=== PATIENT | female | born 1950 | race Caucasian/White ===

== ENCOUNTER → 2018-01-01 08:14 | Outpatient (CLI) | payer MEDICARE, OTHER, SELFPAY ==
[2018-01-01 10:40] LABS: Hematocrit 38.2 % (37-47); Hemoglobin 12.3 g/dl (12.0-15.0); Mean Corp Hgb Conc 32.2 g/gl (32-36); Mean Corpuscular Hgb 28.9 pg (27.0-32.0); Mean Corpuscular Volume 89.9 fL (81-99); Mean Platelet Vol. 11.3 fl (6.2-12.0); Platelet Count 176 K/mm3 (150-450); RBC Distribution Width CV 15.6 % (11.6-14.6); RBC Distribution Width SD 51.2 fl (35.1-43.9); Red Blood Count 4.25 M/mm3 (4.2-5.4); White Blood Count 4.6 K/mm3 (4.4-11.0)
[2018-01-01 10:41] LABS: Scan Indicated on CBC? Y/N NO
[2018-01-01 10:42] LABS: Color, Urine Yellow (Yellow); Glucose, Dipstick Normal (Normal); Ketone-Dipstick Negative (Negative); Leukocyte Esterase-Dipstick 100 /ul (Negative); Nitrite-Dipstick Negative (Negative); Occult Blood-Urine 10 /ul (Negative); Protein-Dipstick Negative (Negative); Specific Gravity, Urine 1.015 (1.002-1.030); Urine Bilirubin Dipstick Negative (Negative); Urine Clarity Sl. Cloudy (Clear); Urine Urobilinogen Normal (Normal)
[2018-01-01 10:53] LABS: Albumin, Serum 3.6 g/dL (3.2-5.0); BUN 17 mg/dL (7-18); BUN/Creat Ratio 12.2 RATIO (10-20); Calcium,Total 9.2 mg/dL (8.5-10.1); Chloride 109 mmol/L (98-107); Creatinine, Serum 1.39 mg/dL (0.55-1.02); EST Glomerular Filtration Rate 40 mL/min (>60); Est Glom Filt Rate - Afr Amer 48 mL/min (>60); Glucose 78 mg/dL (74-106); Phosphorus 3.2 mg/dL (2.5-4.9); Potassium 4.2 mmol/L (3.5-5.1); Sodium Level 141 mmol/L (136-145)
[2018-01-01 13:44] LABS: Microalbumin,Random Urine 67.8 mg/L (NO RANGE EST.); Microalbumin:Creatinine Ratio 107.4 mg/g CRE (<30 mg/g CRE)
[2018-01-02 08:52] LABS: PTHIN 66.1 pg/mL (18.4-80.1)
[2018-01-02 08:54] LABS: Vitamin D,25 Hydroxy 24.3 ng/mL (19.95-100.01)
== END ==
PROVIDERS: Family Provider Family Medicine; PCP Family Medicine; Visit Provider Internal Medicine Nephrology
DX: N25.81 Secondary hyperparathyroidism of renal origin (principal); N18.4 Chronic kidney disease, stage 4 (severe); D63.1 Anemia in chronic kidney disease
CPT/HCPCS: 36415; 80069; 81002; 82043; 82306; 82570; 83970; 85027

== ENCOUNTER → 2018-03-19 12:09 | Outpatient (CLI) | payer MEDICARE, OTHER, SELFPAY ==
[2018-03-19 14:22] LABS: Hemoglobin A1c 4.9 % (4.2-6.3)
== END ==
PROVIDERS: Family Provider Family Medicine; PCP Family Medicine; Visit Provider Family Medicine
DX: E11.9 Type 2 diabetes mellitus without complications (principal)
CPT/HCPCS: 36415; 83036

== ENCOUNTER → 2018-05-07 15:47 | Outpatient (CLI) | payer MEDICARE, OTHER, SELFPAY | PROVIDERS: Visit Provider Otolaryngology Otolaryngology/Facial Plastic Surgery | DX: J32.9 Chronic sinusitis, unspecified (principal); J31.0 Chronic rhinitis | CPT/HCPCS: 87070; 87077; 87205 ==

== ENCOUNTER → 2018-07-31 09:19 | Outpatient (CLI) | payer MEDICARE, OTHER, SELFPAY ==
[2018-07-31 11:04] LABS: Cholesterol 166 mg/dL (200); High Density Lipoprotein 52 mg/dL; Thyroid Stim Hormone (TSH) 2.88 uIU/mL (0.358-3.74); Triglycerides 65 mg/dL; Very Low Density Lipoprotein 13 mg/dL (5-40)
== END ==
PROVIDERS: Family Provider Family Medicine; PCP Family Medicine; Visit Provider Family Medicine
DX: I10 Essential (primary) hypertension (principal)
CPT/HCPCS: 36415; 80061; 84443

== ENCOUNTER → 2018-09-05 10:23 | Outpatient (CLI) | payer MEDICARE, OTHER, SELFPAY ==
[2018-09-05 12:18] LABS: Hematocrit 35.7 % (37-47); Hemoglobin 11.8 g/dl (12.0-15.0); Mean Corp Hgb Conc 33.1 g/gl (32-36); Mean Corpuscular Hgb 30.1 pg (27.0-32.0); Mean Corpuscular Volume 91.1 fL (81-99); Mean Platelet Vol. 11.5 fl (6.2-12.0); Platelet Count 194 K/mm3 (150-450); RBC Distribution Width CV 13.7 % (11.6-14.6); RBC Distribution Width SD 44.7 fl (35.1-43.9); Red Blood Count 3.92 M/mm3 (4.2-5.4); White Blood Count 4.7 K/mm3 (4.4-11.0)
[2018-09-05 12:20] LABS: Albumin, Serum 3.7 g/dL (3.2-5.0); BUN 35 mg/dL (7-18); Calcium,Total 9.7 mg/dL (8.5-10.1); Chloride 108 mmol/L (98-107); Creatinine, Serum 1.75 mg/dL (0.55-1.02); EST Glomerular Filtration Rate 31 mL/min (>60); Est Glom Filt Rate - Afr Amer 37 mL/min (>60); Glucose 91 mg/dL (74-106); Phosphorus 4.1 mg/dL (2.5-4.9); Potassium 4.7 mmol/L (3.5-5.1); Sodium Level 141 mmol/L (136-145)
[2018-09-05 12:25] LABS: Microalbumin:Creatinine Ratio 333.3 mg/g CRE (<30 mg/g CRE); Protein:Creat Ratio 616 mg/g CRE (0-200)
[2018-09-05 12:32] LABS: PTHIN 60.1 pg/mL (18.4-80.1); Vitamin D,25 Hydroxy 34.9 ng/mL (29.95-100.01)
[2018-09-05 12:33] LABS: Scan Indicated on CBC? Y/N NO
== END ==
PROVIDERS: Family Provider Family Medicine; PCP Family Medicine; Referring Provider Internal Medicine Nephrology; Visit Provider Internal Medicine Nephrology
DX: N18.4 Chronic kidney disease, stage 4 (severe) (principal); D63.1 Anemia in chronic kidney disease
CPT/HCPCS: 36415; 80069; 82043; 82306; 82570; 83970; 84156; 85027

== ENCOUNTER → 2018-11-05 09:17 | Outpatient (CLI) | payer MEDICARE, OTHER, SELFPAY ==
--- NOTE | 2018-11-05 09:26 | ECHOD_ITS ---
Reason For Study: PHTN Procedure This was a 2D Doppler, Color Flow transthoracic echocardiogram. The exam was of adequate technical quality. Exam performed in department. Left Ventricle Normal LV size. Left ventricular systolic function is normal. The estimated ejection fraction is 65 %. Diastolic function is indeterminate. No regional wall motion abnormalities noted. Right Ventricle Normal RV size. Normal systolic function. Atria The left atrium is moderately enlarged. Normal right atrium. No doppler evidence for ASD. Mitral Valve There is moderate mitral annular calcification. Extension of the mitral annular calcification onto the posterior mitral valve leaflet. Mild-Moderate (1-2+) mitral valve insufficiency. Tricuspid Valve Normal tricuspid valve. Mild to moderate (1-2+) tricuspid valve insufficiency. Right ventricular systolic pressure estimated to be 52 mmHg. Aortic Valve Trisinus/trileaflet aortic valve. Mild focal aortic valve calcification. Pulmonic Valve The pulmonic valve is not well visualized. Trivial pulmonic valve insufficiency. Great Vessels Normal sized aortic root. Pericardium/Pleural No pericardial effusion. MMode/2D Measurements & Calculations LVIDd: 4.3 cm IVSd: 1.3 cm Ao root diam: 3.3 cm LVIDs: 3.4 cm LVPWd: 0.85 cm LA dimension: 4.4 cm RVDd: 3.6 cm FS: 22.1 % LAV(MOD-bp): 110.8 ml LA A4 area: 29.8 cm2 RA A4 area: 18.2 cm2 LAV(MOD-bp) Indexed: 56.3 ml/m2 LAV(MOD-sp2): 113.8 ml LAV(MOD-sp4): 105.5 ml Time Measurements MV dec time: 0.27 sec Doppler Measurements & Calculations MV E max se: 106.8 cm/sec Lat Peak E' Se: 13.9 cm/sec Med Peak E' Se: 7.1 cm/sec MV A max se: 112.7 cm/sec E/E' lat: 7.7 E/E' med: 15.0 MV E/A: 0.95 MV V2 max: 131.8 cm/sec MV P1/2t max se: 133.0 cm/sec Ao V2 max: 188.8 cm/sec MV max P.0 mmHg MV P1/2t: 111.9 msec Ao max P.3 mmHg MV V2 mean: 71.8 cm/sec MV dec slope: 348.2 cm/sec2 Ao V2 mean: 113.0 cm/sec MV mean P.5 mmHg MVA(P1/2t): 2.0 cm2 Ao mean P.2 mmHg MV V2 VTI: 50.1 cm Ao V2 VTI: 43.5 cm LV V1 max: 110.6 cm/sec MR max se: 618.4 cm/sec PA V2 max: 127.1 cm/sec LV V1 max P.9 mmHg MR max P.0 mmHg LV V1 mean P.3 mmHg MR mean se: 500.1 cm/sec LV V1 mean: 71.1 cm/sec MR mean P.4 mmHg LV V1 VTI: 29.6 cm MR VTI: 239.7 cm TR max se: 349.0 cm/sec TR max P.7 mmHg Interpretation Summary Left ventricular systolic function is normal. The estimated ejection fraction is 65 %. The left atrium is moderately enlarged. There is moderate mitral annular calcification. Extension of the mitral annular calcification onto the posterior mitral valve leaflet. Mild-Moderate (1-2+) mitral valve insufficiency. Mild to moderate (1-2+) tricuspid valve insufficiency. Mild focal aortic valve calcification. Trivial pulmonic valve insufficiency. Right ventricular systolic pressure estimated to be 52 mmHg. Diastolic function is indeterminate. Ordering Physician: Gage Mackey Referring Physician: Gage Mackey Performed By: Eriberto Weber RCS
--- OUTSIDE RECORDS SUMMARY | 2018-12-22 08:01 | XMS RPT_ITS ---
:1950 Author Organization OHIP Support Name Relationship Address Phone ANN MARIE CÁRDENAS Unavailable [address] + [place] [address] R Unavailable Unavailable Unavailable FORRER, ANN MARIE Unavailable [address] + [place] [address] R Unavailable Unavailable Unavailable FORRER, ANN MARIE Unavailable [address] + [place], [place] R Unavailable Unavailable Unavailable FORRER, ANN MARIE Unavailable [address] + [place], [place] R Unavailable Unavailable Unavailable FORRER, ANN MARIE Unavailable [address] + [place], [place] . R Unavailable Unavailable Unavailable FORRER, NABEEL Unavailable [address] + [place] [address] FORRER, NABEEL Unavailable [address] + [place] [address] FORRER, ANN MARIE Unavailable [address] [phone] [place] . R Unavailable Unavailable Unavailable FORRER, ANN MARIE Unavailable [address] [phone] [place] . R Unavailable Unavailable Unavailable FORRER, ANN MARIE Unavailable [address] [phone] [place] . R Unavailable Unavailable Unavailable FORRER, NABEEL Unavailable [address] + [address] [place] [address] FORRER, ANN MARIE Unavailable [address] + [place], [place] . R Unavailable Unavailable Unavailable Care Team Providers Name Role Phone MALIK MONTANA Attending Unavailable MALIK MONTANA Primary Care Unavailable Palmer Drake Attending Unavailable Gage Mackey Referring Unavailable Bruce Dave Attending Unavailable Bruce Dave Referring Unavailable Brown, Malik Primary Care Unavailable Brown, Malik Attending Unavailable Brown, Malik Referring Unavailable Brown, Malik Primary Care Unavailable Brown, Malik Attending Unavailable Brown, Malik Referring Unavailable Brown, Malik Primary Care Unavailable Luis, Chris Attending Unavailable Brown, Malik Primary Care Unavailable Luis, Chris Referring Unavailable Brown, Malik Attending Unavailable Brown, Malik Referring Unavailable Brown, Malik Attending Unavailable Brown, Malik Referring Unavailable Brown, Malik Primary Care Unavailable Bakhous, Aziz Attending Unavailable Bakhous, Aziz Referring Unavailable Brown, Malik Primary Care Unavailable Gage Mackey Attending Unavailable Gage Mackey Referring Unavailable Brown, Malik Primary Care Unavailable PROBLEMS PROBLEMS DATE TYPE CONDITION / CODE ATTENDING STATUS SOURCE 11/27/2018 Unknown I27.20 - Pulmonary Palmer Drake Active [place] hypertension, [facility] unspecified / Hospital I27.20(ICD-10) Repository 09/05/2018 Unknown N18.4 - [facility], [facility] stage 4 (severe) / Hospital N18.4(ICD-10) Repository 09/05/2018 Unknown D63.1 - [facility] disease / Hospital D63.1(ICD-10) Repository 07/31/2018 Unknown I10 - Essential Malik Montana Active [place] (primary) [facility] hypertension / Hospital I10(ICD-10) Repository 03/19/2018 Unknown E11.9 - Type 2 Malik Montana Active [place] diabetes mellitus [facility] without [facility] complications / Repository E11.9(ICD-10) PROCEDURES PROCEDURES No Procedure Records FoundRESULTS RESULTS ECHOCARDIOGRAM COMPLETE Observed: 11/05/2018 Status: F Source: STU 4:51 PM [facility] REPOSITORY [facility] Cardiovascular Services [address] [place] [address] Echo Complete 11/05/18 1107 MR#: [id number] Acct: [id number] Name: JEAN PAUL CÁRDENAS Rep #: [id number] : 1950 68 From: Palmer Drake MD Attending Dr: Gage Mackey MD Status: REG CLI Ordering Dr: Gage Mackey MD Date: 11/05/18 Location: CVS Sex: F C Admitted: Reason For Study: PHTN Procedure This was a 2D Doppler, Color Flow transthoracic echocardiogram. The exam was of adequate technical quality. Exam performed in department. Left Ventricle Normal LV size. Left ventricular systolic function is normal. The estimated ejection fraction is 65 %. Diastolic function is indeterminate. No regional wall motion abnormalities noted. Right Ventricle Normal RV size. Normal systolic function. Atria The left atrium is moderately enlarged. Normal right atrium. No doppler evidence for ASD. Mitral Valve There is moderate mitral annular calcification. Extension of the mitral annular calcification onto the posterior mitral valve leaflet. Mild-Moderate (1-2+) mitral valve insufficiency. Tricuspid Valve Normal tricuspid valve. Mild to moderate (1-2+) tricuspid valve insufficiency. Right ventricular systolic pressure estimated to be 52 mmHg. Aortic Valve Trisinus/trileaflet aortic valve. Mild focal aortic valve calcification. Pulmonic Valve The pulmonic valve is not well visualized. Trivial pulmonic valve insufficiency. Great Vessels Normal sized aortic root. Pericardium/Pleural No pericardial effusion. MMode/2D Measurements AND Calculations LVIDd: 4.3 cm IVSd: 1.3 cm Ao root diam: 3.3 cm LVIDs: 3.4 cm LVPWd: 0.85 cm LA dimension: 4.4 cm RVDd: 3.6 cm FS: 22.1 % LAV(MOD-bp): 110.8 ml LA A4 area: 29.8 cm2 RA A4 area: 18.2 cm2 LAV(MOD-bp) Indexed: 56.3 ml/m2 LAV(MOD-sp2): 113.8 ml LAV(MOD-sp4): 105.5 ml Time Measurements MV dec time: 0.27 sec Doppler Measurements AND Calculations MV E max se: 106.8 cm/sec Lat Peak E' Se: 13.9 cm/sec Med Peak E' Se: 7.1 cm/sec MV A max se: 112.7 cm/sec E/E' lat: 7.7 E/E' med: 15.0 MV E/A: 0.95 MV V2 max: 131.8 cm/sec MV P1/2t max se: 133.0 cm/sec Ao V2 max: 188.8 cm/sec MV max P.0 mmHg MV P1/2t: 111.9 msec Ao max P.3 mmHg MV V2 mean: 71.8 cm/sec MV dec slope: 348.2 cm/sec2 Ao V2 mean: 113.0 cm/sec MV mean P.5 mmHg MVA(P1/2t): 2.0 cm2 Ao mean P.2 mmHg MV V2 VTI: 50.1 cm Ao V2 VTI: 43.5 cm LV V1 max: 110.6 cm/sec MR max se: 618.4 cm/sec PA V2 max: 127.1 cm/sec LV V1 max P.9 mmHg MR max P.0 mmHg LV V1 mean P.3 mmHg MR mean se: 500.1 cm/sec LV V1 mean: 71.1 cm/sec MR mean P.4 mmHg LV V1 VTI: 29.6 cm MR VTI: 239.7 cm TR max se: 349.0 cm/sec TR max P.7 mmHg Interpretation Summary Left ventricular systolic function is normal. The estimated ejection fraction is 65 %. The left atrium is moderately enlarged. There is moderate mitral annular calcification. Extension of the mitral annular calcification onto the posterior mitral valve leaflet. Mild-Moderate (1-2+) mitral valve insufficiency. Mild to moderate (1-2+) tricuspid valve insufficiency. Mild focal aortic valve calcification. Trivial pulmonic valve insufficiency. Right ventricular systolic pressure estimated to be 52 mmHg. Diastolic function is indeterminate. Ordering Physician: Gage Mackey Referring Physician: Gage Mackey Performed By: Eriberto Weber RCS 11/05/181650 Date Palmer Drake MD CC: Malik Montana DO; Gage Mackey MD Date Dictated: 11/05/18 1107 Date Transcribed: 11/05/181650 Painter Hand: Signed RENAL PROFILE Collected: 09/05/2018 Status: F Source: [place] 10:[place] [facility] [place] CODE TESTS RESULT OUT OF RANGE REFERENCE UNITS LAB L501.0100 74-106 mg/dL Normal GLU 91 Result Comment: Please note revised GLUCOSE reference range effective 2017. LAB L501.1000 7-18 mg/dL High BUN 35 LAB L501.1100 0.55-1.02 mg/dL High CREAT,SERUM 1.75 Result Comment: The validity of the calculated GFR AND GFRAA in patients over 70 years has not been determined. Clinical correlation is essential. LAB L501.1110 >60 mL/min Low EST GFR 31 Result Comment: Non- GFR Calc LAB L501.1115 >60 mL/min Low EST GFR - AA 37 Result Comment: GFR Calc LAB L501.1300 10-20 RATIO Normal BUN/CRE 20.0 LAB L501.1800 3.2-5.0 g/dL Normal ALB 3.7 LAB L501.2200 8.5-10.1 mg/dL CA Normal 9.7 LAB L501.2300 2.5-4.9 mg/dL Normal PHOS 4.1 LAB L501.5300 136-145 mmol/L NA Normal 141 LAB L501.5600 3.5-5.1 mmol/L K Normal 4.7 LAB L501.5900 98-107 mmol/L High CL 108 LAB L501.6100 21.0-32.0 mmol/L Normal CO2 26.0 Performed By: #### L500.3600 #### [facility] [address] [place], [address] PROTEIN+CREATININE Collected: Status: F Source: [facility] 09/05/2018 10:42 AM [facility] [place] TYPE CODE TESTS RESULT OUT OF RANGE REFERENCE UNITS LAB L501.1200 NO RANGE EST. mg/dL Normal UR CREAT 47.10 LAB L501.1930 <11.9 mg/dL High 29.0 PROTEIN,UR.R AN. LAB L501.1940 0-200 mg/g CRE High PROT:CRE 616 RATIO Performed By: #### L501.0900, L502.0250 #### [facility] [address] [facility] [place], [address] MICROALB:CREAT Collected: 09/05/2018 Status: F Source: [facility] RATIO,RANDOM UR 10:42 [place] [facility] [place] TYPE CODE TESTS RESULT OUT OF RANGE REFERENCE UNITS LAB L502.0500 NO RANGE EST. mg/L Normal 157.0 MICROALBUMIN ,UR LAB L502.0600 <30 mg/g CRE mg/g CRE High 333.3 MALB:CREAT Performed By: #### L501.0900, L502.0250 #### [facility] [address] [facility] [place], [address] VITAMIN D,25 HYDROXY Collected: 09/05/2018 Status: F Source: STU 10:42 [facility] REPOSITORY TYPE CODE TESTS RESULT OUT OF RANGE REFERENCE UNITS LAB L506.1000 29.95-100.01 ng/mL Normal Vitamin D 34.9 25-OH Result Comment: Vitamin D 25(OH) Status Range Deficiency <20 ng/mL (50nmol/L) Insuffciency 20 - 30 ng/mL (50 - 75 nmol/L) Sufficiency 30 - 100 ng/mL (75 - 250 nmol/L) Toxicity >100 ng/mL (>250 nmol/L) Performed By: #### L506.1000 #### [facility] [address] [place], [place], [address] PTHIN Collected: 09/05/2018 Status: F Source: STU 10:42 [facility] REPOSITORY TYPE CODE TESTS RESULT OUT OF RANGE REFERENCE UNITS LAB L509.1000 18.4-80.1 pg/mL Normal PTHIN 60.1 Performed By: #### L509.1000 #### [facility] [address] [facility] [address] [place], [place], [address] CBC-COMPLETE BLOOD CNT Collected: 09/05/2018 Status: F Source: STU NO DIFF 10:42 [facility] REPOSITORY TYPE CODE TESTS RESULT OUT OF RANGE REFERENCE UNITS LAB L100.1000 4.4-11.0 K/mm3 Normal WBC 4.7 LAB L100.1200 4.2-5.4 M/mm3 Low RBC 3.92 LAB L100.1300 12.0-15.0 g/dl Low HGB 11.8 LAB L100.1400 37-47 % Low HCT 35.7 LAB L100.1500 81-99 fL Normal MCV 91.1 LAB L100.1600 27.0-32.0 pg Normal MCH 30.1 LAB L100.1700 32-36 g/gl Normal MCHC 33.1 LAB L100.1810 11.6-14.6 % Normal RDW CV 13.7 LAB L100.1820 35.1-43.9 fl High RDW SD 44.7 LAB L100.1900 150-450 K/mm3 Normal PLT 194 LAB L100.2000 6.2-12.0 fl Normal MPV 11.5 Performed By: #### L100.0500 #### [facility] [address] [facility] [place], [address] LIPID PROFILE Collected: 07/31/2018 Status: F Source: [place] 9:29 AM [facility] [place] TYPE CODE TESTS RESULT OUT OF RANGE REFERENCE UNITS LAB L501.4900 200 mg/dL Normal CHOL 166 Result Comment: <200 mg/dL Desirable 200-240 mg/dL Borderline >240 mg/dL High Risk LAB L501.5000 mg/dL Normal TRIG 65 Result Comment: The drugs N-Acetylcysteine and Metamizole may falsely depress this assay. Serum Triglycerides Reference Interval Normal <150 mg/dL Borderline high 150 - 199 mg/dL High 200 - 499 mg/dL Very High > or = 500 mg/dL LAB L501.6400 mg/dL Normal HDL 52 Result Comment: The drugs N-Acetylcysteine and Metamizole may falsely depress this assay. Reference Range HDL <40 mg/dL Low HDL Cholesterol HDL >or= 60 mg/dL High HDL Cholesterol LAB L501.6500 0-130 mg/dL Normal LDL 101 LAB L501.6600 5-40 mg/dL Normal VLDL 13 Performed By: #### L500.4100, L501.9520 #### [facility] [address] [facility] [place], [address] THYROID STIM HORMONE Collected: 07/31/2018 Status: F Source: [place] (TSH) 9:29 AM [facility] [place] TYPE CODE TESTS RESULT OUT OF RANGE REFERENCE UNITS LAB L501.9520 0.358-3.74 uIU/mL Normal TSH 2.88 Performed By: #### L500.4100, L501.9520 #### [facility] [address] [facility] [place], [address] INTERNAL MEDICINE Observed: 07/31/2018 Status: F Source: [place]U OFFICE VISIT 9:16 AM [facility] [place] [facility] [address] [place] [address] OFFICE VISIT Date of Service: 07/31/18 MR#: [id number] Acct: [id number] Name: JEAN PAUL CÁRDENAS Rep #: [id number] : 1950 Provider: Malik Montana DO Age/Sex: 68/F Location[place] [facility] Status: Signed Intake Vital Signs07/31/18 Height 5 ft 2.5 in 07/31/18 Weight: 218 lb 07/31/18 Body Mass Index (BMI) 39.2 07/31/18 Blood Pressure 125/63 Intake Visit Reasons: 3 MO FU Chief Complaint: Check up Is patient in pain?: No Allergies exenatide [From Byetta] Allergy (Intermediate, Verified 07/31/18 08:29) Unknown Sulfa (Sulfonamide Antibiotics) Allergy (Intermediate, Verified 07/31/18 08:29) Unknown Tetracyclines Allergy (Intermediate, Verified 07/31/18 08:29) Unknown Medications Amlodipine [Norvasc] 10 mg PO DAILY 01/05/15 [History Confirmed 07/31/18] Cholecalciferol (VIT D3) [Vitamin D3] 2,000 unit PO DAILY 01/05/15 [History Confirmed 07/31/18] Lisinopril [Zestril] 10 mg PO DAILY 01/05/15 [History Confirmed 07/31/18] Pravastatin [Pravachol] 20 mg PO DAILY 01/05/15 [History Confirmed 07/31/18] albuterol sulfate HFA 90 mcg/actuation aerosol inhaler 2 puff INHALATION Q6H 03/19/18 [History Confirmed 07/31/18] cephalexin 500 mg tablet 500 mg PO BID #30 tab 07/31/18 [Rx Confirmed 07/31/18] levothyroxine 100 mcg capsule 100 mcg PO QDAY #90 cap 07/31/18 [Rx Confirmed 07/31/18] PFSH Medical History Skin ulcer (Chronic) Pneumonia (Chronic) Kidney failure (Chronic) Kidney disease (Chronic) IBS (irritable bowel syndrome) (Chronic) Hypertension (Chronic) Heart failure (Chronic) Diabetes (Chronic) Asthma (Chronic) Arthritis (Chronic) Seasonal allergies (Chronic) Family History Father Heart disease Mother Hypertension Social History Smoking Status: Never smoker alcohol intake: never substance use type: does not use what type of physical activity do you participate in: none HPI HPI Chief Complaint: Check up Details: JEAN PAUL FORRER, is a 68 F who presents to the office today for follow up on her blood sugar and her recurrent leg ulcers. ROS Const Constitutional: No chills, fatigue, fever(s), frequent falls, malaise, weakness, sleep problems or change in appetite Eyes Eyes: No blurry vision, change in vision, double vision, discharge or visual disturbances ENT ENT: No abnormal hearing, ear pain, ear pressure, tinnitus or dizziness/vertigo Resp Respiratory: No cough, shortness of breath or wheezing Cardio Cardiology: No chest pain at rest, chest pain with exertion, shortness of breath, dyspnea on exertion, generalized swelling, irregular heart rhythm, lightheadedness, orthopnea, fast heart rate or palpitations Gastro GI: No abdominal pain, change in bowel habits, constipation, diarrhea, nausea/dyspepsia or vomiting Genitourinary-Female: No difficulty urinating, burning urination, painful urination, urinary incontinence, urinary frequency, urinary urgency, urinary hesitancy, urinary retention, Frequent nighttime urination/ nocturia, sexual problems, genital lesions, abnormal vaginal bleeding, pelvic pain, vaginal dryness, vaginal odor or Vaginal Itching Musc Musculoskeletal: No joint pain, back pain, joint swelling, limited range of motion, muscle weakness, numbness or tingling Skin Skin: Positive for other (odor); no change in skin color, itching, rash or wounds Breast Breast: Positive for other (odor); no breast lump or breast pain Neuro Neurology: No frequent falls, weakness, abnormal hearing, numbness, tingling, unsteady gait/balance, dizziness, loss of vision, memory loss or visual disturbances Psych Psychiatric: No memory loss, No anxiety, No change in appetite, No depression, No Thoughts of harming yourself/Others Endo Endocrine: No fatigue, heat intolerance, increased thirst/drinking, increased hunger or increased urination Aller/Imm Allergy/Immunologic: No wheezing, itchy eyes or seasonal allergy symptoms Aron/Lymp Hematologic/Lymphatic: No easy bleeding, easy bruising or enlarged lymph nodes Exam Const General: cooperative Nutritional Appearance: obese Orientation: oriented x3 [facility] Head: normal to inspection Ears: hearing grossly normal bilaterally Nose: external nose normal Face and sinus: normal facial exam Mouth: oral mucosae normal Teeth and gingiva: dentition normal Eyes General: appearance normal, both eyes and all related structures Neck Neck: normal visual inspection, no lymphadenopathy Neck mass: No Thyroid: thyroid normal Resp Effort AND Inspection: normal respiratory effort, able to speak in complete sentences Auscultation: Bilateral: Expiratory Wheezes Cardio Rate: regular rate Rhythm: regular rhythm Musc Musculoskeletal: No muscle weakness Extrem General: other (scaling, marked small ulcers, mild edema, skin is hard) Psych Mental Status: mental status grossly normal Affect: normal affect Assessment AND Plan Problems 1. Diabetes mellitus E11.9 2. Hypertension I10 3. Asthma J45.909 4. Lipodermatosclerosis I83.10 5. Chronic venous insufficiency I87.2 6. Obstructive sleep apnea on CPAP G47.33; Z99.89 7. Stage 4 chronic kidney disease N18.9 8. Hypothyroidism E03.9 9. Hypercholesteremia E78.00 Plan This patient was here for a routine checkup. At the last visit her hemoglobin A1c is 5.4 I assumed according to her record that she had stopped the metformin she was on previously but apparently on this visit she informs me she was still taking metformin. Because she is in chronic renal failure obviously she needs to discontinue that medicine and I explained that to her and her . Her pulmonary status seems stable. Her diabetic leg disease is slightly improved but there are still some small infected ulcers for which an antibiotic was prescribed. Her serum creatinines have decreased from 2.1-1.45. Labs were ordered to evaluate her thyroid status and her lipid status because her sugar is well controlled and because she has not had any flareups of her asthma I thought we could extend her recheck visits for 6 months. Orders Orders: Medications New: Plan Detail Follow Up 6 Months Coding Level of Care Code Off vis,est,level 3 Diagnoses Diabetes mellitus E11.9 Diabetes mellitus type: type 2 Hypertension I10 Asthma J45.909 Lipodermatosclerosis I83.10 Chronic venous insufficiency I87.2 Obstructive sleep apnea on CPAP G47.33; Z99.89 Stage 4 chronic kidney disease N18.9 Hypothyroidism E03.9 Hypercholesteremia E78.00 07/31/18 0916 <Electronically signed by Malik Montana DO> Date Malik Montana DO Cosigner Signature: Date (if applicable) CC: MA MAMMOGRAM SCREENING Observed: 07/03/2018 Status: F Source: [facility] BILATERAL W/MISTY 7:30 AM FOUNDATION REPOSITORY ORIGINAL FROM: [facility] [address], [place] [address] PROCEDURE FOR: JEAN PAUL CÁRDENAS [address] [place] [address] Home: PID#: [id number] Exam#: [id number] : 1950 Age: 68 TO: MALIK MONTANA DO [address] [place], [place] [address] #[id number] DIGITAL SCREENING MAMMOGRAM 3D/2D WITH CAD WITH MEDIOLATERAL OBLIQUE CRANIOCAUDAL: 07/03/2018 Comparison is made to exams dated: 05/30/2017 mammogram and 05/10/2016 mammogram - [facility]. The tissue of both breasts is predominately fatty. Current study was also evaluated with a Computer Aided Detection (CAD) system. There are benign calcifications in both breasts. No significant masses, calcifications, or other findings are seen in either breast. There has been no significant interval change. IMPRESSION: BENIGN There is no mammographic evidence of malignancy. A 1 year screening mammogram is recommended. AYESHA MENDOZA MD ab/penrad:07/03/2018 16:19:35 Claim Adjuster: TEODORO JEROME (Juice)(Christa), [facility] letter sent: Normal BI-RADS 1&2 Mammogram BI-RADS: 2 Benign Observed: 05/07/2018 Status: F Source: [facility] CULTURE, NOSE 8:15 AM [facility] [place] Gram Stain Gram Stain 3+ White Blood Cells Rare Gram positive cocci Nasoph. Cult Amoxicillin/Clavulanic Acid and Oral Cephlosporins are the drugs of choice, as most isolates are penicillin resistant. Trimeth/Sulfa (Otitis), Ciprofloxacin, Ofloxacin and Erythromycin are alternate choices. ORGANISM 1: Moraxella(Harjit.)Catarrhalis Amount Growth 1+ Beta Lactamase Positive Performed By: #### M100.0900 #### [facility] [address] [place], [address] INTERNAL MEDICINE Observed: 03/19/2018 Status: F Source: [facility] OFFICE VISIT 1:10 PM [facility] [place] [facility] [address] [place] [address] [place] [address] OFFICE VISIT Date of Service: 03/19/18 MR#: [id number] Acct: [id number] Name: JEAN PAUL CÁRDENAS Rick Rep #: [id number] : 1950 Provider: Malik Montana DO Age/Sex: 67/F Location: [facility] Status: Signed Intake Vital Signs03/19/18 Height 5 ft 2.5 in 03/19/18 Weight: 218 lb 03/19/18 Body Mass Index (BMI) 39.2 03/19/18 Blood Pressure 143/76 Intake Visit Reasons: F/U Chief Complaint: Check up Accompanied by: Is patient in pain?: No Allergies exenatide [From Byetta] Allergy (Intermediate, Verified 03/19/18 11:17) Unknown Sulfa (Sulfonamide Antibiotics) Allergy (Intermediate, Verified 03/19/18 11:17) Unknown Tetracyclines Allergy (Intermediate, Verified 03/19/18 11:17) Unknown Medications Amlodipine [Norvasc] 10 mg PO DAILY 01/05/15 [History Confirmed 03/19/18] Cholecalciferol (VIT D3) [Vitamin D3] 2,000 unit PO DAILY 01/05/15 [History Confirmed 03/19/18] Lisinopril [Zestril] 10 mg PO DAILY 01/05/15 [History Confirmed 03/19/18] Pravastatin [Pravachol] 20 mg PO DAILY 01/05/15 [History Confirmed 03/19/18] albuterol sulfate HFA 90 mcg/actuation aerosol inhaler 2 puff INHALATION Q6H 03/19/18 [History Confirmed 03/19/18] furosemide 40 mg tablet 40 mg PO ONCE 03/19/18 [History Confirmed 03/19/18] levothyroxine 100 mcg capsule 100 mcg PO QDAY 03/19/18 [History Confirmed 03/19/18] PFS Medical History Skin ulcer (Chronic) Pneumonia (Chronic) Kidney failure (Chronic) Kidney disease (Chronic) IBS (irritable bowel syndrome) (Chronic) Hypertension (Chronic) Heart failure (Chronic) Diabetes (Chronic) Asthma (Chronic) Arthritis (Chronic) Seasonal allergies (Chronic) Family History Father Heart disease Mother Hypertension Social History Smoking Status: Never smoker alcohol intake: never substance use type: does not use what type of physical activity do you participate in: none HPI HPI Chief Complaint: Check up Details: JEAN PAUL CÁRDENAS, is a 67 F who presents to the office today for a checkup, she has been seen in the [facility] for her leg ulcers, and needs a diabetic check up. ROS Const Constitutional: Positive for chills, fatigue, weakness, sleep problems and weight change; no fever(s), frequent falls, malaise or change in appetite Eyes Eyes: No blurry vision, change in vision, double vision, discharge or visual disturbances ENT ENT: Positive for nasal discharge; no abnormal hearing, ear pain, ear pressure, tinnitus or dizziness/vertigo Resp Respiratory: No cough, shortness of breath or wheezing Cardio Cardiology: No chest pain at rest, chest pain with exertion, shortness of breath, dyspnea on exertion, generalized swelling, irregular heart rhythm, lightheadedness, orthopnea, fast heart rate or palpitations Gastro GI: No abdominal pain, change in bowel habits, constipation, diarrhea, nausea/dyspepsia or vomiting Genitourinary-Female: No difficulty urinating, burning urination, painful urination, urinary incontinence, urinary frequency, urinary urgency, urinary hesitancy, urinary retention, Frequent nighttime urination/ nocturia, sexual problems, genital lesions, abnormal vaginal bleeding, pelvic pain, vaginal dryness, vaginal odor or Vaginal Itching Musc Musculoskeletal: Positive for joint pain; no back pain, joint swelling, limited range of motion, muscle weakness, numbness or tingling Skin Skin: No change in skin color, itching, rash or wounds Breast Breast: No breast lump or breast pain Neuro Neurology: Positive for weakness; no frequent falls, abnormal hearing, numbness, tingling, unsteady gait/balance, dizziness, loss of vision, memory loss or visual disturbances Psych Psychiatric: No memory loss, No anxiety, No change in appetite, Positive for depression, No Thoughts of harming yourself/Others Endo Endocrine: Positive for fatigue; no heat intolerance, increased thirst/drinking, increased hunger or increased urination Aller/Imm Allergy/Immunologic: No wheezing, itchy eyes or seasonal allergy symptoms Aron/Lymp Hematologic/Lymphatic: No easy bleeding, easy bruising or enlarged lymph nodes Exam Const General: cooperative, no acute distress Nutritional Appearance: overweight Orientation: oriented x3 Resp Effort AND Inspection: normal respiratory effort Auscultation: Bilateral: Clear to Auscultation Cardio Rate: regular rate Rhythm: regular rhythm Musc Musculoskeletal: No muscle weakness Neuro General: normal sensation to monofilament Extrem Other: Discolored and firm, marked dystrophic skin changes, no ulcerations or drainage Assessment AND Plan Problems 1. Hypertension I10 2. Diabetes mellitus E11.9 3. Arthritis M19.90 4. Leg swelling M79.89 5. Lipodermatosclerosis I83.10 6. Morbid obesity with BMI of 50.0-59.9, adult E66.01; Z68.43 7. Obstructive sleep apnea on CPAP G47.33; Z99.89 8. Stage 4 chronic kidney disease N18.9 Plan This patient was seen for recheck and since she is lost a considerable amount of weight her hemoglobin A1c's have improved. Her creatinines have also dropped from 2.0-1.36 which is a significant improvement and she is under care of a cutter tender for this she has seen Dr. Harrington for her leg ulcers and her severe l .lipodermatosclerosis. And her legs are significantly improved from how they used to be in the past with no drainage at all at this time medications were refilled I encouraged her to continue with her work with the weight loss and she is going to set up a recheck appointment after I contact her with results of the hemoglobin A1c Orders Orders: Plan Detail Follow Up 3 Months Coding Level of Care Code Off vis,est,level 3 Diagnoses Hypertension I10 Diabetes mellitus E11.9 Diabetes mellitus type: type 2 Arthritis M19.90 Leg swelling M79.89 Lipodermatosclerosis I83.10 Morbid obesity with BMI of 50.0-59.9, adult E66.01; Z68.43 Obstructive sleep apnea on CPAP G47.33; Z99.89 Stage 4 chronic kidney disease N18.9 03/19/18 1310 <Electronically signed by Malik Montana DO> Date Malik Montana DO Cosigner Signature: Date (if applicable) CC: HEMOGLOBIN A1C Collected: 03/19/2018 Status: F Source: [place] 12[place] [facility] CODE TESTS RESULT OUT OF RANGE REFERENCE UNITS LAB L501.9985 4.2-6.3 % Normal HGB A1C 4.9 Performed By: #### L501.9985 #### [facility] [address] [place], [address] CBC-COMPLETE BLOOD CNT Collected: 01/01/2018 Status: F Source: [place] NO DIFF 8:19 AM [facility] [place] CODE TESTS RESULT OUT OF RANGE REFERENCE UNITS LAB L100.1000 4.4-11.0 K/mm3 Normal WBC 4.6 LAB L100.1200 4.2-5.4 M/mm3 Normal RBC 4.25 LAB L100.1300 12.0-15.0 g/dl Normal HGB 12.3 LAB L100.1400 37-47 % Normal HCT 38.2 LAB L100.1500 81-99 fL Normal MCV 89.9 LAB L100.1600 27.0-32.0 pg Normal MCH 28.9 LAB L100.1700 32-36 g/gl Normal MCHC 32.2 LAB L100.1810 11.6-14.6 % High RDW CV 15.6 LAB L100.1820 35.1-43.9 fl High RDW SD 51.2 LAB L100.1900 150-450 K/mm3 Normal PLT 176 LAB L100.2000 6.2-12.0 fl Normal MPV 11.3 Performed By: #### L100.0500 #### [facility] [address] [place], [place], [id number] RENAL PROFILE Collected: 01/01/2018 Status: F Source: [place] 8:19 AM [facility] [place] CODE TESTS RESULT OUT OF RANGE REFERENCE UNITS LAB L501.0100 74-106 mg/dL Normal GLU 78 LAB L501.1000 7-18 mg/dL Normal BUN 17 LAB L501.1100 0.55-1.02 mg/dL High 1.39 CREAT,SERUM Result Comment: The validity of the calculated GFR AND GFRAA in patients over 70 years has not been determined. Clinical correlation is essential. LAB L501.1110 >60 mL/min Low EST GFR 40 Result Comment: Non- GFR Calc LAB L501.1115 >60 mL/min Low EST GFR - AA 48 Result Comment: GFR Calc LAB L501.1300 10-20 RATIO Normal BUN/CRE 12.2 LAB L501.1800 3.2-5.0 g/dL Normal ALB 3.6 LAB L501.2200 8.5-10.1 mg/dL CA Normal 9.2 LAB L501.2300 2.5-4.9 mg/dL Normal PHOS 3.2 LAB L501.5300 136-145 mmol/L NA Normal 141 LAB L501.5600 3.5-5.1 mmol/L K Normal 4.2 LAB L501.5900 98-107 mmol/L High CL 109 LAB L501.6100 21.0-32.0 mmol/L Normal CO2 25.0 Performed By: #### L500.3600 #### [facility] [address] [place], [place], [address] PTHIN Collected: 01/01/2018 Status: F Source: [place] 8:19 AM [facility] [place] CODE TESTS RESULT OUT OF RANGE REFERENCE UNITS LAB L509.1000 18.4-80.1 pg/mL Normal PTHIN 66.1 Result Comment: Please Note: PTH INTACT METHOD AND REFERENCE RANGE CHANGE Effective 11/14/2017. Performed By: #### L509.1000 #### [facility] [address] [facility] [address] [place], [place], [address] VITAMIN D,25 HYDROXY Collected: 01/01/2018 Status: F Source: [place] 8:19 AM [facility] [place] CODE TESTS RESULT OUT OF RANGE REFERENCE UNITS LAB L506.1000 19.95-100.01 ng/mL Normal Vitamin D 24.3 25-OH Result Comment: Vitamin D 25(OH) Status Range Deficiency <20 ng/mL (50nmol/L) Insuffciency 20 - 30 ng/mL (50 - 75 nmol/L) Sufficiency 30 - 100 ng/mL (75 - 250 nmol/L) Toxicity >100 ng/mL (>250 nmol/L) Performed By: #### L506.999 #### [facility] [address] [place], [place], [address] URINALYSIS, ROUTINE Collected: 01/01/2018 Status: F Source: [place] (DIPSTICK) 5:00 AM [facility] [place] Order Comment: How was Urine Obtained? CLEAN CATCH TYPE CODE TESTS RESULT OUT OF RANGE REFERENCE UNITS LAB L400.3000 Yellow COLOR Normal Yellow LAB L400.3050 Clear Normal CLARITY Sl. Cloudy LAB L400.3200 Normal mg/dl Normal GLUCOSE, UR Normal LAB L400.3300 Negative mg/dL Normal BILIRUBIN URINE Negative LAB L400.3400 Negative mg/dl Normal KETONE UR Negative LAB L400.3465 1.002-1.030 Normal SP.GR. DIPSTX 1.015 LAB L400.3550 5.0 - 8.0 pH UR Normal 5.0 LAB L400.3600 Negative mg/dl PROT Normal DIPSTX Negative LAB L400.3700 Normal mg/dl Normal UROBILI Normal LAB L400.3750 Negative Normal NITRITE UR Negative LAB L400.3780 Negative /ul High 10 OCCULT BLOOD-UR LAB L400.3800 Negative /ul High LEUK ESTERASE 100 Performed By: #### L400.2010 #### [facility] [address] [place], [address] MICROALB:CREAT Collected: 01/01/2018 Status: F Source: [place] RATIO,RANDOM UR 5:00 AM [facility] [place] CODE TESTS RESULT OUT OF RANGE REFERENCE UNITS LAB L501.1200 NO RANGE EST. mg/dL Normal UR CREAT 63.10 LAB L502.0500 NO RANGE EST. mg/L Normal 67.8 MICROALBUMIN ,UR LAB L502.0600 <30 mg/g CRE mg/g CRE High 107.4 MALB:CREAT Performed By: #### L502.0250 #### [facility] [address] [place], [address] ALLERGIES ALLERGIES DATE TYPE / CODE NAME / CODE REACTION SEVERITY SOURCE 07/31/2018 Drug Tetracyclines Unknown [facility] Allergy/4160 /[id number](R Hospital 31455(SNOMED XNORM) Repository CT) 07/31/2018 Drug Sulfa Unknown [facility] Allergy/4160 (Sulfonamide Hospital 84419(SNOMED Antibiotics)/ Repository CT) [id number](RX NORM) 07/31/2018 Drug exenatide/F00 Unknown [facility] Allergy/4160 1556057(RXNOR Hospital 97468(SNOMED M) Repository CT) ENCOUNTERS ENCOUNTERS ADMIT/DISCHARGE ACCOUNT NUMBER ADMITTING ENCOUNTER LOCATION SOURCE CLASS 11/05/2018 [id number] Ambulatory BMSBuilding: [facility] Repository 11/05/2018 [id number] Ambulatory [facility] ding:[facility] Repository 09/05/2018 [id number] Ambulatory [facility] ding:MTLAB Repository 07/31/2018 [id number] Ambulatory [facility] ding:MTLAB Repository 07/31/2018/07/31/20 [id number] Ambulatory BMSBuilding: [address] Repository 07/03/2018/07/03/20 [id number] Ambulatory [address] ding:[facility] Repository 05/07/2018 [id number] Ambulatory [facility] ding:LABSPEC Repository 03/19/2018 [id number] Ambulatory [facility] ding:INT LAB Repository 03/19/2018/03/19/20 [id number] Ambulatory BMSBuilding: [place] [facility] Repository 01/01/2018 [id number] Ambulatory [place] [facility] ding:MTLAB Repository PAYERS PAYERS ENCOUNTER GUARANTOR PAYER SUBSCRIBER SOURCE 11/05/2018 JEAN PAUL Cabrera Primary JEAN PAUL [place] [id number] Insurance:MEDICARE FORRERDOB[facility] [address] [facility] [id number] [facility] [address] Number: Repository [address]Xzr: 330 [id number] [phone] () Date:2018-04-15 11/05/2018 Secondary JEAN PAUL [place] Insurance:AARPPolicy FORRERDOB: [facility] Number: [id number] Hospital [id number] Repository Date:5687-16-27[address], [place] [address]TE: 11/05/2018 Tertiary NOT GIVENUNK [place] Insurance:SELF PAY [facility] Number: Effective Repository Date:2018-11-05 11/05/2018 JEAN PAUL Cabrera Primary JEAN PAUL [place] [id number] Insurance:MEDICARE FORRERDOB: [facility] PART A [facility] [id number] [facility] [place] Number: Repository [address]Otf: 330 [id number] [phone] () Date:2018-04-15 11/05/2018 Secondary JE[place] PAUL [place] Insurance:AARPPolicy FORRERDOB: Community Number: [id number] Hospital [id number] Repository Date:3618-93-85[address], [place] [address]YL: 11/05/2018 Tertiary NOT GIVENUNK [place] Insurance:SELF PAY [facility] Number: Effective Repository Date:2018-04-15 09/05/2018 JEAN PAUL Cabrera Primary JEAN PAUL [place] [id number] Insurance:MEDICARE FORRERDOB: [facility] [address] [facility] [id number] [facility] [address] Number: Repository [address]Lrd: 330 [id number] [phone] (HP) Date:2018-09-05 09/05/2018 Secondary JEAN PAUL Cabrera [place] Insurance:AARPPolicy FORRERDOB: Community Number: [id number] Hospital [id number] Repository Date:7952-71-67PI [address], [place] [address]JN: 09/05/2018 Tertiary NOT GIVENUNK [place] Insurance:SELF PAY [facility] Hospital Number: Effective Repository Date:2018-09-05 07/31/2018 JEAN PAUL Cabrera Primary JEAN PAUL Cabrera [place] [id number] Insurance:MEDICARE FORRERDOB: [facility] PART A [facility] [id number] Number: Repository [address]Lzm: 330 [id number] [phone] () Date:2018-07-31 07/31/2018 Secondary JEAN PAUL Cabrera [place] Insurance:AARPPolicy FORRERDOB: Community Number: [id number] Hospital [id number] Repository Date:0413-87-72[address], [place] [address]XF: 07/31/2018 Tertiary NOT GIVENUNK [place] Insurance:SELF PAY [facility] Hospital Number: Effective Repository Date:2018-07-31 07/31/2018 JEAN PAUL Cabrera Primary JEAN PAUL Cabrera [place] [id number] Insurance:MEDICARE FORRERDOB: [facility] PART A [facility] [id number] Number: Repository [address]Bgk: 330 [id number] [phone] () Date:2018-03-19 07/31/2018 Secondary JEAN PAUL Cabrera [place] Insurance:AARPPolicy FORRERDOB: Community Number: [id number] Hospital [id number] Repository Date:9646-92-19OI [address], [place] [address]NY: 07/31/2018 Tertiary NOT GIVENUNK [place] Insurance:SELF PAY [facility] Hospital Number: Effective Repository Date:2018-07-22 07/03/2018 JEAN PAUL J Primary JEAN PAUL [facility] FORRERDOB: Insurance:MEDICARE FORRERDOB: [facility] 1950 O PART BPolicy Number: [id number] O Repository [address], [id number] [address], [place] [address]Cmu: Date:2018-06-25 - [place] [address]Yjm: [id number] (HP)Tel: [phone]) Name:PCGS () () Administrators LLCPO 000-0000 () [address] [place] [address]XC: 07/03/2018 Secondary JEAN PAUL Cabrera [facility] Insurance:[employer] SPENCER FORRERDOB: [facility] [id number] O Repository ONLYPolicy Number: [address], [id number] [place] [address]Cst: Date:2018-06-25 - [id number] ()Tel: ([phone]) Name:OPERATING ROOM RN [address] () [place], [place] [address]AL: 05/07/2018 JEAN PAUL Cabrera Primary JEAN PAUL J [place] [id number] Insurance:MEDICARE FORRERDOB: [facility] PART A [facility] [id number] Hospital [place], [place] Number: Repository [address]Ohw: [id number] [phone] Date:2018-05-07 (HP) 05/07/2018 Secondary JE[place] PAUL [place] [facility] FOR[facility]: [facility] Number: [id number] Hospital [id number] Repository Date:0173-78-23[facility] [address], [place] [address]JT: 05/07/2018 Tertiary NOT GIVENUNK [place] Insurance:SELF PAY Community [employer]Policy Hospital Number: Effective Repository Date:2018-05-07 03/19/2018 JEAN PAUL Cabrera Primary JEAN PAUL [place] [id number] Insurance:MEDICARE FORRERDOB: Community [address] [facility] [id number] Hospital [address] Number: Repository [id number]: [id number] [phone] Date:2018-03-19 () 03/19/2018 Secondary JEAN PAUL Cabrera [place] Insurance:AARPPolicy FORRERDOB: Community Number: [id number] Hospital [id number] Repository Date:3745-33-47IW [address], [place] [address]ZA: 03/19/2018 Tertiary NOT GIVENUNK [place] Insurance:SELF PAY [facility] Number: Effective Repository Date:2018-03-19 03/19/2018 JEAN PAUL Cabrera Primary JEAN PAUL [place] [id number] Insurance:MEDICARE FORRERDOB: [facility] [address] [address] [facility] [id number], [place] Number: Repository [address]Fet: [id number] [phone] Date:2018-01-29 () 03/19/2018 Secondary JEAN PAUL [place] Insurance:AARPPolicy FORRERDOB: Community Number: [id number] Hospital [id number] Repository Date:3441-43-79UV [address]HSYMM, [place] [address]WG: 03/19/2018 Tertiary NOT GIVENUNK [place] Insurance:SELF PAY [facility] Number: Effective Repository Date:2018-03-18 01/01/2018 Jean Paul Cabrera Primary Jean Paul [place] [id number] Insurance:MEDICARE ForrerDOB: Community [address] [facility] [id number] Hospital [address], [place] Number: Repository [id number]: [id number] [phone] Date:2018-01-01 () 01/01/2018 Secondary Jean Paul [place] Insurance:AARPPolicy ForrerDOB: [facility] Number: [id number] Hospital [id number] Repository Date:0623-26-41[address], [place] [address]EZ: 01/01/2018 Tertiary NOT GIVENVICTORIANO [place] Insurance:SELF PAY [facility] Number: Effective Repository Date:2018-01-01
== END ==
PROVIDERS: Family Provider Family Medicine; PCP Family Medicine; Referring Provider Internal Medicine Pulmonary Disease; Visit Provider Internal Medicine Pulmonary Disease
DX: I27.20 Pulmonary hypertension, unspecified (principal)
CPT/HCPCS: 93306

== ENCOUNTER → 2019-01-01 12:45 | Outpatient (CLI) | payer MEDICARE, SELFPAY ==
[2018-07-31 08:28] VITALS: BMI 39.2
[2019-01-01 16:12] LABS: Albumin, Serum 3.6 g/dL (3.2-5.0); BUN 40 mg/dL (7-18); BUN/Creat Ratio 28.4 RATIO (10-20); Calcium,Total 9.5 mg/dL (8.5-10.1); Chloride 105 mmol/L (98-107); Creatinine, Serum 1.41 mg/dL (0.55-1.02); EST Glomerular Filtration Rate 39 mL/min (>60); Est Glom Filt Rate - Afr Amer 48 mL/min (>60); Glucose 161 mg/dL (74-106); Phosphorus 2.7 mg/dL (2.5-4.9); Potassium 3.8 mmol/L (3.5-5.1); Sodium Level 142 mmol/L (136-145)
[2019-01-01 16:21] LABS: PTHIN 102.4 pg/mL (18.4-80.1); Vitamin D,25 Hydroxy 32.8 ng/mL (29.95-100.01)
== END ==
PROVIDERS: Family Provider Family Medicine; PCP Family Medicine; Referring Provider Internal Medicine Nephrology; Visit Provider Internal Medicine Nephrology
DX: N18.4 Chronic kidney disease, stage 4 (severe) (principal)
CPT/HCPCS: 36415; 80069; 82306; 83970

== ENCOUNTER 2019-03-07 11:45 | Emergency (ER) | payer MEDICARE, OTHER, SELFPAY ==
[2019-02-11 08:25] VITALS: BMI 39.2
[2019-03-07 11:46] VITALS: BP 104/71; PULSE 46; RESP 14; TEMP 36.2; O2SAT 98; BMI 34.7
--- NOTE | 2019-03-07 11:57 | RAD_ITS ---
STUDY: X-RAY - RIGHT SHOULDER REASON FOR EXAM: Female, 68 years old. Shoulder pain following a fall. TECHNIQUE: 3 view(s) of the shoulder. COMPARISON: None. FINDINGS: Normal glenohumeral articulation. There is degenerative arthrosis of the acromioclavicular joint without inferior osseous spur formation. Normal acromion. Nondisplaced fracture of the surgical neck of the proximal humerus with extension to the greater tuberosity. The soft tissue structures are unremarkable. Calcified granulomas. RAD/Shoulder min 2 Views IMPRESSION: Nondisplaced fracture of the surgical neck of the proximal humerus with extension to the greater tuberosity. Electronically Signed: [place] Arevalo, at 13:00 EDT , Service support ,
--- NOTE | 2019-03-07 12:06 | RAD_ITS ---
STUDY: X-RAY - RIGHT HUMERUS REASON FOR EXAM: Female, 68 years old. Shoulder pain following a fall. TECHNIQUE: 2 view(s) of the humerus. COMPARISON: None. FINDINGS: Nondisplaced oblique fracture of the proximal surgical neck of the right humerus with extension to the greater tuberosity. Soft tissue swelling. RAD/Humerus min 2 Views IMPRESSION: Nondisplaced fracture involving the surgical neck of the proximal right humerus with extension to the greater tuberosity. Electronically Signed: [place] Are[place]o, at 12:58 EDT , Service support ,
--- NOTE | 2019-03-07 12:09 | ED.DCSUM_ITS ---
History of Present Illness Chief Complaint: Upper Extremity Injury Narrative: 68-year-old [id number] female tripped in the parking lot at [employer] and landed directly on her right shoulder. She had a sudden onset of pain which she describes an achy sensation mostly in the mid humerus and right shoulder. It is worse with palpation and attempting to move it but better with immobilization. She denies paresthesias or weakness. She has no neck pain or headache. She is certain that she did not hit her head. She has no lower extremity pain or other injuries. Current severity of her pain is moderate. - Past Medical History (1) Arthritis Status: Chronic (2) Asthma Status: Chronic (3) Asthma Status: Chronic (4) CHF (congestive heart failure) Status: Chronic (5) Chronic kidney disease Status: Chronic (6) Chronic venous insufficiency Status: Chronic (7) Diabetes Status: Chronic (8) Diabetes mellitus Status: Chronic Past Medical History - Allergies and Home Meds Allergies/Adverse Reactions: Allergies exenatide [From By[place]] Allergy (Intermediate, Verified 03/07/19 11:47) Unknown Sulfa (Sulfonamide Antibiotics) Allergy (Intermediate, Verified 03/07/19 11:47) Unknown Tetracyclines Allergy (Intermediate, Verified 03/07/19 11:47) Unknown Primary Care Physician: Ba Montana DO [Primary Care Provider] - Surgical History: - - Patient has remotely undergone a right lower extremity vein stripping, though the specific procedure is unknown. She is also undergone a tonsillectomy. Patient is a Ab0. Lives: Spouse/ Significant Other Smoking Status: Never smoker - Family History Maternal Family History: Family History (Last Reviewed 02/11/19 @ 09:33 by Ba Montana DO) Father Heart disease Mother Hypertension Family History: Reports: - - The patient's father at age of 74 with a history of myocardial infarction. Patient's mother at age of 82 with a history of heart disease. Review of Systems All systems negative except as indicated General: Denies: Chills, Fever, Sweats Eyes: Denies: Visual changes - bilaterally, Diplopia ENT: Denies: Rhinorrhea, Sore throat Cardiovascular: Denies: Chest pain, Palpitations Respiratory: Denies: Dyspnea, Cough, Dyspnea on exertion Gastrointestinal: Denies: Abdominal pain, Nausea, Vomiting, Diarrhea, Melena, Hematochezia Genitourinary: Denies: Dysuria, Hematuria, Frequency Musculoskeletal: Reports: Extremity Pain. Denies: Back pain Skin: Denies: Rash, Wounds Neurological: Denies: Headache, Weakness, Numbness Physical Exam Vital Signs/Narrative: Vital Signs Temp Pulse Resp BP Pulse Ox 03/07/19 11:46 97.1 F L 46 L 14 104/71 98 General: Well nourished, Well developed, No Acute Distress Head: Normocephalic, Atraumatic Eyes: Perrl, EOMI ENT: Moist mucous membranes, No rhinorrhea Neck: Supple, Nontender Cardiovascular: Regular rate, Regular rhythm, No murmurs Respiratory: No distress, CTA bilaterally, Chest nontender Abdomen: Soft, Nontender, Nondistended, Normal bowel sounds Back: Nontender, Normal Inspection Extremities: No edema, Tenderness, - - Tenderness right proximal humerus and right shoulder laterally. Skin intact. Normal distal neurovascular examination. No neck tenderness. No deformity. Skin: Normal color, No rash Neurological: Alert, Oriented x3, Cranial nerves II-XII grossly intact, Normal Strength, Normal Sensation Psychological: Normal affect, Normal Mood ED Disposition - Plan for ED Patient: Diagnosis: Fracture of right olecranon process, Fracture of humerus, proximal, right, closed Instructions: ED Fx Shoulder, ED Fx Elbow Prescriptions: Oxycodone HCl/Acetaminophen [Percocet 5-325 mg Tablet] 1 each PO TID PRN 3 Days #12 tablet PRN Reason: Pain Referrals: Ja Evans DO [STAFF PHYSICIAN] - As soon as possible
--- NOTE | 2019-03-07 12:40 | RAD_ITS ---
STUDY: X-RAY - RIGHT ELBOW REASON FOR EXAM: Female, 68 years old. Pain following a fall. TECHNIQUE: 2 view(s) of the elbow. COMPARISON: None. FINDINGS: There is evidence of an avulsion fracture of the olecranon process of the proximal ulna. Normal radiocapitellar and ulnotrochlear articulations. Diffuse soft tissue swelling. RAD/Elbow 2 Views IMPRESSION: Avulsion fracture of the olecranon process of the proximal ulna with overlying soft tissue swelling. Electronically Signed: [place], at 12:59 EDT , Service support ,
== END 2019-03-07 15:00 | disposition home or self-care (01) ==
PROVIDERS: Emergency Provider Emergency Medicine; Family Provider Family Medicine; PCP Family Medicine
DX: S42.214A Unspecified nondisplaced fracture of surgical neck of right humerus, initial encounter for closed fracture (principal); S52.021A Displaced fracture of olecranon process without intraarticular extension of right ulna, initial encounter for closed fracture; J45.909 Unspecified asthma, uncomplicated; E11.22 Type 2 diabetes mellitus with diabetic chronic kidney disease; N18.9 Chronic kidney disease, unspecified; I50.9 Heart failure, unspecified; W01.0XXA Fall on same level from slipping, tripping and stumbling without subsequent striking against object, initial encounter; Y93.01 Activity, walking, marching and hiking; Y92.481 Parking lot as the place of occurrence of the external cause; Y99.8 Other external cause status
CPT/HCPCS: 29105; 73030; 73060; 73070; 99281; 99282

== ENCOUNTER → 2019-03-13 | Outpatient (CLI) | payer MEDICARE, OTHER, SELFPAY ==
[2019-03-13 14:05] VITALS: BMI 34.7
--- NOTE | 2019-03-13 15:07 | RAD_ITS ---
STUDY: X-RAY CHEST REASON FOR EXAM: Female, 68 years old. Preoperative exam TECHNIQUE: Frontal and lateral views of the chest COMPARISON: 12/18/2016 FINDINGS: The lungs are clear. There are no pleural effusions. There is no pneumothorax. The heart is normal in size. The visualized osseous structures are within normal limits. RAD/Chest PA and Lateral IMPRESSION: No acute thoracic pathology. Electronically Signed: Kristian Flores, at 18:10 EDT Tel , Service support ,
--- NOTE | 2019-03-13 15:14 | EKG12_ITS ---
Test Reason : PRE OP Blood Pressure : / mmHG Vent. Rate : 092 BPM Atrial Rate : 092 BPM P-R Int : 154 ms QRS Dur : 086 ms QT Int : 364 ms P-R-T Axes : 011 -08 -15 degrees QTc Int : 450 ms Sinus rhythm with Premature supraventricular complexes and with occasional Premature ventricular comp lexes Left ventricular hypertrophy Nonspecific T-Wave Abnormality Abnormal ECG Confirmed by JOSEPH CAUSEY, IGOR ([id number]), clinical editor MICHEL SKAGGS ([id number]) on 03/17/2019 9:51:45 AM Referred By: Ja Evans Confirmed By:IGOR RUIZ MD
[2019-03-13 16:06] LABS: Absolute Neutrophil Count 4.8 X10^3/uL (2.0-7.7); Basophil# 0.02 X10^3/uL; Basophil% 0.3 % (0-1); Eosinophil# 0.05 X10^3/uL; Eosinophils% 0.8 % (0-5); Hematocrit 33.9 % (37-47); Lymphocyte % 16.9 % (19-41); Mean Corp Hgb Conc 32.4 g/gl (32-36); Mean Corpuscular Hgb 28.5 pg (27.0-32.0); Mean Corpuscular Volume 87.8 fL (81-99); Mean Platelet Vol. 10.1 fl (6.2-12.0); Monocyte# 0.54 X10^3/uL; Monocyte% 8.3 % (0-10); Neutrophil # 4.76 X10^3/uL (2.7-7.7); Neutrophil % 73.4 % (47-70); Platelet Count 226 K/mm3 (150-450); RBC Distribution Width CV 13.7 % (11.6-14.6); RBC Distribution Width SD 42.9 fl (35.1-43.9); Red Blood Count 3.86 M/mm3 (4.2-5.4); White Blood Count 6.5 K/mm3 (4.4-11.0)
[2019-03-13 16:10] LABS: POSITIVE COUNT NO; POSITIVE DIFFERENTIAL NO; POSITIVE MORPHOLOGY NO
[2019-03-13 16:26] LABS: Hemoglobin A1c 5.8 % (4.2-6.3)
[2019-03-13 16:33] LABS: Anion Gap 8 (5-15); BUN 35 mg/dL (7-18); BUN/Creat Ratio 16.4 RATIO (10-20); Calcium,Total 9.4 mg/dL (8.5-10.1); Chloride 109 mmol/L (98-107); Creatinine, Serum 2.14 mg/dL (0.55-1.02); EST Glomerular Filtration Rate 24 mL/min (>60); Est Glom Filt Rate - Afr Amer 29 mL/min (>60); Glucose 83 mg/dL (74-106); Sodium Level 140 mmol/L (136-145)
== END | disposition home or self-care (01) ==
LOC: LAB 14:49
PROVIDERS: Family Provider Family Medicine; PCP Family Medicine; Referring Provider Orthopaedic Surgery; Visit Provider Orthopaedic Surgery
DX: Z01.818 Encounter for other preprocedural examination (principal); E11.9 Type 2 diabetes mellitus without complications
CPT/HCPCS: 36415; 71046; 80048; 83036; 85025; 93005

== ENCOUNTER 2019-03-14 18:41 | Emergency (ER) | payer MEDICARE, OTHER, SELFPAY ==
[2019-03-13 14:05] VITALS: BMI 34.7
[2019-03-14 18:42] VITALS: BP 147/90; PULSE 84; RESP 16; TEMP 36.8; O2SAT 97; BMI 39.9
--- NOTE | 2019-03-14 19:11 | EKG12_ITS ---
Test Reason : CONFUSION Blood Pressure : / mmHG Vent. Rate : 079 BPM Atrial Rate : 079 BPM P-R Int : 176 ms QRS Dur : 080 ms QT Int : 392 ms P-R-T Axes : 008 -17 013 degrees QTc Int : 449 ms Normal sinus rhythm with sinus arrhythmia Normal ECG Confirmed by JOSEPH CAUSEY, IGOR ([id number]), market editor ZEFERINO LUNA ([id number]) on 03/18/2019 1:56:21 PM Referred By: aJ Evans Confirmed By:IGOR RUIZ MD
--- NOTE | 2019-03-14 19:20 | RAD_ITS ---
STUDY: X-RAY CHEST REASON FOR EXAM: Female, 68 years old. Confusion TECHNIQUE: Single AP portable view of the chest. COMPARISON: 03/13/2019. FINDINGS: Limited by rotation to the left. The lungs are clear and expanded. There is no demonstrated pleural abnormality. There is moderate cardiac enlargement. Normal mediastinum and carlos. Normal visualized pulmonary arteries. Normal visualized aortic arch and descending thoracic aorta. Normal visualized thoracic spine. Normal visualized ribs, clavicles, and shoulders. There is no demonstrated abnormality of the visualized soft tissue structures of the upper abdomen. RAD/Chest 1 View (Portable) IMPRESSION: Suboptimal positioning. No acute chest disease seen. Electronically Signed: Bhavesh Palmer MD at 19:47 EDT , Service support ,
[2019-03-14 19:40] LABS: Bacteria 0 SEEN /hpf (None Seen); Red Blood Cells-Urine 0 SEEN /hpf (0-5)
[2019-03-14 19:42] LABS: Mucous, Urine 0 SEEN /hpf (<or=2+)
[2019-03-14 19:48] VITALS: BP 117/50; PULSE 64; RESP 14; TEMP 37.2; O2SAT 94
[2019-03-14 19:58] LABS: Absolute Neutrophil Count 4.3 X10^3/uL (2.0-7.7); Basophil# 0.01 X10^3/uL; Basophil% 0.2 % (0-1); Eosinophil# 0.11 X10^3/uL; Eosinophils% 1.7 % (0-5); Hematocrit 32.6 % (37-47); Hemoglobin 11.1 g/dl (12.0-15.0); Lymphocyte % 21.3 % (19-41); Mean Corpuscular Hgb 29.7 pg (27.0-32.0); Mean Corpuscular Volume 87.2 fL (81-99); Mean Platelet Vol. 10.4 fl (6.2-12.0); Monocyte% 10.7 % (0-10); Neutrophil # 4.33 X10^3/uL (2.7-7.7); Neutrophil % 65.9 % (47-70); Platelet Count 232 K/mm3 (150-450); RBC Distribution Width CV 13.8 % (11.6-14.6); RBC Distribution Width SD 42.2 fl (35.1-43.9); Red Blood Count 3.74 M/mm3 (4.2-5.4); White Blood Count 6.6 K/mm3 (4.4-11.0)
[2019-03-14 20:00] LABS: International Normalized Ratio 1.1; Prothrombin Time (Protime)PT. 13.8 SECONDS (11.7-14.9)
[2019-03-14 20:03] LABS: POSITIVE COUNT NO; POSITIVE DIFFERENTIAL NO; POSITIVE MORPHOLOGY NO
[2019-03-14 20:11] LABS: ALB/GLOB Ratio 0.9 RATIO (0.9-2.4); AST(SGOT) 19 U/L (15-37); Alanine Aminotransfer ALT/SGPT 12 U/L (13-56); Albumin, Serum 3.6 g/dL (3.2-5.0); Alkaline Phosphatase 82 U/L (45-117); Anion Gap 7 (5-15); BUN 36 mg/dL (7-18); BUN/Creat Ratio 18.3 RATIO (10-20); Calcium,Total 9.1 mg/dL (8.5-10.1); Chloride 107 mmol/L (98-107); Creatinine, Serum 1.97 mg/dL (0.55-1.02); EST Glomerular Filtration Rate 27 mL/min (>60); Est Glom Filt Rate - Afr Amer 32 mL/min (>60); Estimated Creatinine Clearance 20.34 ml/min; Globulin 3.8 g/dL (2.2-4.2); Glucose 101 mg/dL (74-106); Potassium 4.6 mmol/L (3.5-5.1); Protein, Total 7.4 g/dL (6.4-8.2); Sodium Level 140 mmol/L (136-145)
[2019-03-14 20:13] LABS: Lactic Acid 1.1 mmol/L (0.4-2.0)
[2019-03-14 20:22] VITALS: BP 114/52; PULSE 57; RESP 12; O2SAT 93
[2019-03-14 20:25] LABS: Color, Urine Yellow (Yellow); Glucose, Dipstick Normal (Normal); Ketone-Dipstick Negative (Negative); Leukocyte Esterase-Dipstick 25 /ul (Negative); Nitrite-Dipstick Negative (Negative); Occult Blood-Urine Negative /ul (Negative); Protein-Dipstick 100 mg/dl (Negative); Urine Bilirubin Dipstick Negative (Negative); Urine Clarity Sl. Cloudy (Clear); Urine Urobilinogen Normal (Normal)
--- NOTE | 2019-03-14 20:28 | ED.DCSUM_ITS ---
- ER Visit Summary Date of Service: 03/14/19 Chief Complaint: Mental status change who arrives brought by her daughter with acute delirium, starting yesterday she has been History of Present Illness: The patient is a 68 F seeing people that are not there reaching for objects and talking to people that are not there. She is also pointing fingers. There is some confusion also. She has no reported fevers. Patient denies shortness of breath. Patient denies abdominal pain or chest pain. She is oriented to place person and month was worked up in the emergency department she is lucid and coherent oriented x3. Physical Examination: Not appear in acute distress. She does not appear toxic Moist mucous membranes, no obvious facial deformity No C-spine tenderness supple neck. Regular rate and rhythm without any obvious murmurs Clear lungs bilaterally speaking in full sentences without any obvious respiratory distress Abdomen soft and nontender no guarding or rebound Moves all extremities without any difficulty or pain. Skin does not show any obvious rashes or lesions, no trauma. Alert oriented ?3 with no gross focal deficit Emergency Department Course and Treatment: Patient when I reevaluated her she had some slight leuk esterases on her straight cath urinalysis, otherwise she has a normal workup she has an appointment with 2 days with her PCP and wants to be home for [place]. She lives with her and her daughter it was not working this weekend and will care for her I believe this is reasonable give her IV Rocephin in the emergency department and sent home on p.o. antibiotics. If she worsens they are will return to the emergency department. Disposition: Discharged in stable condition Impression Urinary tract infection This note was generated with [employer] dictation software. It may contain incorrect words, spelling, and punctuation that were not noted in review of the chart prior to signing ED Disposition - Plan for ED Patient: Disposition: Home or Assisted Living Instructions: ED UTI Cystitis Female Prescriptions: Cefpodoxime Proxetil 200 mg PO BID #20 tab Referrals: Ba Montana DO [Primary Care Provider] - 2 Days
[2019-03-14 20:41] LABS: Amorphous Sediment 1+; Squamous Epithelial Cells - UA 0-5 SEEN /hpf (5-10); White Blood Cells 0-5 SEEN /hpf (0-5)
[2019-03-14] MEDS: Ceftriaxone 1 GM/50 ML BAG IV (21:08)
[2019-03-14 21:11] VITALS: BP 134/62; PULSE 57; RESP 19; O2SAT 92
--- NOTE | 2019-03-16 14:48 | ED.RN ---
Called pt to follow up with blood culture results. There was no answer. Message left for pt to return call.
--- NOTE | 2019-03-16 19:21 | ED.RN ---
Pt returned call and verified she was feeling ok. She was encouraged to return to the ED if she felt as though her sx were not improving she should return to the ED. She [id number] she has follow-up tomorrow.
== END 2019-03-14 21:50 | disposition home or self-care (01) ==
PROVIDERS: Emergency Provider Emergency Medicine; Family Provider Family Medicine; PCP Family Medicine
DX: N39.0 Urinary tract infection, site not specified (principal); R41.0 Disorientation, unspecified; I10 Essential (primary) hypertension; E11.9 Type 2 diabetes mellitus without complications
CPT/HCPCS: 71045; 80053; 81001; 83605; 85025; 85610; 85730; 87040; 87076; 87086; 87088; 93005; 96365; 99285; A4216

== ENCOUNTER 2019-03-24 08:58 | Day surgery (SDC) | payer MEDICARE, OTHER, SELFPAY ==
[2019-03-13 14:05] VITALS: BMI 34.7
[2019-03-17 09:53] VITALS: BMI 39.9
[2019-03-24] VITALS (7 sets, daily range): BP systolic 114–135; BP diastolic 45–94; PULSE 48–94; RESP 16–18; TEMP 37–37.3; O2SAT 92–99; BMI 36.6
[2019-03-24 09:56] LABS: Thyroid Stim Hormone (TSH) 3.25 uIU/mL (0.358-3.74)
[2019-03-24 10:06] LABS: Bedside Glucose 87 mg/dL (70-110)
--- NOTE | 2019-03-24 11:05 | RAD_ITS ---
STUDY: X-RAY - RIGHT ELBOW REASON FOR EXAM: Female, 68 years old. ORIF of the right olecranon fracture. TECHNIQUE: 2 intraoperative view(s) of the elbow. COMPARISON: Comparison is made with prior study dated March 07, 2019. FINDINGS: There is reduction of the olecranon fracture utilizing screws and plate fixation device. RAD/Elbow 2 Views IMPRESSION: ORIF of the right olecranon fracture. There is good alignment. Electronically Signed: Los Arevalo, at 12:45 EDT , Service support ,
[2019-03-24 13:21] LABS: Bedside Glucose 127 mg/dL (70-110)
[2019-03-24] MEDS: HYDROcodone Bitartrate/Apap 5/325 Tablet PO (14:29)
[2019-03-24] MEDS: Ondansetron 4 MG/2 ML Vial IV (14:30)
--- NOTE | 2019-03-24 14:42 | PCM.OPRPT ---
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 Evans Predatory Animal Hunter: Rasheed Guadarrama PA-C Anesthesia: General EBL: Minimal with tourniquet Drains: none Specimen: none With appropriate informed consent, the patient was taken to OR 5. After the induction of general anesthesia and the provision of pre-op antibiotics, a well-padded tourniquet was placed around the right brachium. The right arm was prepped and draped in the usual sterile fashion. Time out was taken. The RUE was exsanguinated with an Esmarch bandage and the tourniquet was applied at 250 mm Hg. A longitudinal incision was made over the fracture site and dissection was carried to the bone with care to maintain skin flaps. Retraction of the skin was carried out with self retaining retractors and by my senior underwriting assistant. The fracture site was identified and multiple comminuted bone fragments were noted. Interposed hematoma and soft tissue was removed sharply and with a rongeur. The fracture site was irrigated and the joint was inspected through the fracture site. No significant joint damage was noted except to the fractured olecranon. However, the surface cartilage appeared to be in good condition on both the ulna and distal humerus. The patient's bone, however, was quite soft and osteoporotic. The fracture was reduced and held in place with threaded Jacky wires. Adequacy of the reduction was verified visually and with a C-arm image intensifier. Subsequently a precontoured Synthes olecranon plate was placed on the olecranon. It was fixed distally with two appropriate length cortical screws. Proximally, the comminuted fracture was identified and fixed with appropriate length cortical screw that were locked into the plate. A final fluoroscopic image revealed adequacy of the reduction and placement of the hardware was verified. The wound was copiously irrigated and closed in layers. A sterile dressing and splint were applied. The tourniquet was released and excellent blood flow returned to the hand. The patient was then extubated and transferred to PACU in stable and satisfactory condition. My senior underwriting assistant, Mr. Guadarrama, was vital to the completion of this procedure. He retracted soft tissue. He assisted in the bone reduction. He closed the wound and applied the sterile post-op dressing and splint. - Admit VTE Documentation VTE Present on Admission: No VTE Mechan Device Prophylaxis: SCD's VTE Pharm Prophylaxis ordered?: No Reason prophylaxis not ordered:: Treatment Not Indicated
--- NOTE | 2019-03-24 15:13 | OP.PCM_ITS ---
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 Evans [place] Erector Helper: Rasheed Guadarrama PA-C Anesthesia: General EBL: Minimal with tourniquet Drains: none Specimen: none With appropriate informed consent, the patient was taken to OR 5. After the induction of general anesthesia and the provision of pre-op antibiotics, a well- padded tourniquet was placed around the right brachium. The right arm was prepped and draped in the usual sterile fashion. Time out was taken. The RUE was exsanguinated with an Esmarch bandage and the tourniquet was applied at 250 mm Hg. A longitudinal incision was made over the fracture site and dissection was carried to the bone with care to maintain skin flaps. Retraction of the skin was carried out with self retaining retractors and by my trade sales assistant. The fracture site was identified and multiple comminuted bone fragments were noted. Interposed hematoma and soft tissue was removed sharply and with a rongeur. The fracture site was irrigated and the joint was inspected through the fracture site. No significant joint damage was noted except to the fractured olecranon. However, the surface cartilage appeared to be in good condition on both the ulna and distal humerus. The patient's bone, however, was quite soft and osteoporotic. The fracture was reduced and held in place with threaded Jacky wires. Adequacy of the reduction was verified visually and with a C-arm image intensifier. Subsequently a precontoured Synthes olecranon plate was placed on the olecranon. It was fixed distally with two appropriate length cortical screws. Proximally, the comminuted fracture was identified and fixed with appropriate length cortical screw that were locked into the plate. A final fluoroscopic image revealed adequacy of the reduction and placement of the hardware was verified. The wound was copiously irrigated and closed in layers. A sterile dressing and splint were applied. The tourniquet was released and excellent blood flow returned to the hand. The patient was then extubated and transferred to PACU in stable and satisfactory condition. My trade sales assistant, Mr. Guadarrama, was vital to the completion of this procedure. He retracted soft tissue. He assisted in the bone reduction. He closed the wound and applied the sterile post-op dressing and splint. - Admit VTE Documentation VTE Present on Admission: No VTE Mechan Device Prophylaxis: SCD's VTE Pharm Prophylaxis ordered?: No Reason prophylaxis not ordered:: Treatment Not Indicated
== END 2019-03-24 16:19 | disposition home or self-care (01) ==
LOC: SDC 08:59 → AC 09:01
PROVIDERS: Anesthesiology; Family Provider Family Medicine; PCP Family Medicine; Referring Provider Orthopaedic Surgery; Visit Provider Orthopaedic Surgery
PROC: (CPT 24685; principal; 2019-03-24 10:50)
DX: S52.021A Displaced fracture of olecranon process without intraarticular extension of right ulna, initial encounter for closed fracture (principal); S42.224A 2-part nondisplaced fracture of surgical neck of right humerus, initial encounter for closed fracture; E66.01 Morbid (severe) obesity due to excess calories; Z68.38 Body mass index [BMI] 38.0-38.9, adult; E78.00 Pure hypercholesterolemia, unspecified; F41.9 Anxiety disorder, unspecified; I13.0 Hypertensive heart and chronic kidney disease with heart failure and stage 1 through stage 4 chronic kidney disease, or unspecified chronic kidney disease; E11.22 Type 2 diabetes mellitus with diabetic chronic kidney disease; N18.9 Chronic kidney disease, unspecified; I50.9 Heart failure, unspecified; J44.9 Chronic obstructive pulmonary disease, unspecified; F32.9 Major depressive disorder, single episode, unspecified; G47.33 Obstructive sleep apnea (adult) (pediatric); F03.90 Unspecified dementia, unspecified severity, without behavioral disturbance, psychotic disturbance, mood disturbance, and anxiety; J45.909 Unspecified asthma, uncomplicated; E07.9 Disorder of thyroid, unspecified; Z79.51 Long term (current) use of inhaled steroids; Z79.891 Long term (current) use of opiate analgesic; Z79.899 Other long term (current) drug therapy; Z86.718 Personal history of other venous thrombosis and embolism; W18.30XA Fall on same level, unspecified, initial encounter; Y93.89 Activity, other specified; Y92.511 Restaurant or cafe as the place of occurrence of the external cause; Y99.8 Other external cause status
CPT/HCPCS: 01740; 24685; 36415; 73070; 76000; 82962; 84443; 94640; C1713; J7120; A4216; J2405

== ENCOUNTER → 2019-04-02 12:00 | Outpatient (CLI) | payer MEDICARE, OTHER, SELFPAY ==
[2019-04-01 09:46] VITALS: BMI 36.6
[2019-04-02 12:22] LABS: Bacteria 0 SEEN /hpf (None Seen); Mucous, Urine 0 SEEN /hpf (<or=2+)
[2019-04-02 14:28] LABS: Color, Urine Yellow (Yellow); Glucose, Dipstick Normal (Normal); Ketone-Dipstick Negative (Negative); Leukocyte Esterase-Dipstick 25 /ul (Negative); Nitrite-Dipstick Negative (Negative); Occult Blood-Urine 10 /ul (Negative); Protein-Dipstick 30 mg/dl (Negative); Specific Gravity, Urine 1.005 (1.002-1.030); Urine Bilirubin Dipstick Negative (Negative); Urine Clarity Sl. Cloudy (Clear); Urine Urobilinogen Normal (Normal); Urine pH 6.5 (5.0 - 8.0)
[2019-04-02 14:34] LABS: Red Blood Cells-Urine 0-5 SEEN /hpf (0-5); Squamous Epithelial Cells - UA 0-5 SEEN /hpf (5-10); White Blood Cells 0-5 SEEN /hpf (0-5)
== END ==
PROVIDERS: Family Provider Family Medicine; PCP Family Medicine; Referring Provider Nurse Practitioner Family; Visit Provider Nurse Practitioner Family
DX: R30.0 Dysuria (principal); N28.9 Disorder of kidney and ureter, unspecified
CPT/HCPCS: 81001; 87086; 87088

== ENCOUNTER → 2019-04-25 | Outpatient (CLI) | payer MEDICARE, OTHER, SELFPAY ==
[2019-04-24 11:22] VITALS: BMI 36.6
--- NOTE | 2019-04-25 08:16 | CT_ITS ---
STUDY: CT BRAIN WITHOUT CONTRAST REASON FOR EXAM: Female, 68 years old. Confusion following a recent fall. RADIATION DOSAGE (If Supplied By Facility): CTDIvol = ( 44.99 ) mGy, DLP = ( 745.49 ) mGycm TECHNIQUE: Transaxial CT imaging of the brain was performed without administration of intravenous contrast material. Individualized dose optimization techniques were used for this CT. COMPARISON: No relevant priors. FINDINGS: Normal soft tissue structures. Normal calvarium. There is mild cerebral atrophy with widening of the extra-axial spaces and ventricular dilatation. There are areas of decreased attenuation within the white matter tracts of the supratentorial brain, consistent with microvascular disease changes. Normal basal ganglia and thalami. Normal brainstem. Normal cerebellum. There is no intracranial hemorrhage. There are no findings of an acute ischemic infarction. Atherosclerotic calcification of the vertebral arteries and cavernous portions of the internal carotid arteries bilaterally. Normal visualized paranasal sinuses. CT/Brain/Head without Contrast IMPRESSION: Chronic involutional changes of the brain. Electronically Signed: [place] Arevalo, at 13:50 EDT , Service support ,
[2019-04-25 08:36] LABS: CREATININE FINGERSTICK 2.2 mg/dL (0.55-1.02)
== END | disposition home or self-care (01) ==
LOC: CT 08:06
PROVIDERS: Family Provider Family Medicine; PCP Family Medicine; Referring Provider Family Medicine; Visit Provider Family Medicine
DX: F44.89 Other dissociative and conversion disorders (principal)
CPT/HCPCS: 70450

== ENCOUNTER 2019-05-23 11:15 | Outpatient (RCR) | payer MEDICARE, OTHER, SELFPAY ==
[2019-05-06 09:08] VITALS: BMI 36.6
[2019-05-20 09:29] VITALS: BP 131/60; PULSE 59; RESP 18; TEMP 36.3; BMI 32.3
--- NOTE | 2019-05-20 10:55 | PCM.WC.HP ---
(1) Leg edema Status: Chronic Current Visit: Yes Code(s): R60.0 - Localized edema (2) Venous ulcer of right leg Status: Chronic Current Visit: Yes Code(s): I83.019 - Varicose veins of right lower extremity with ulcer of unspecified site; L97.919 - Non-pressure chronic ulcer of unspecified part of right lower leg with unspecified severity (3) Sleep apnea Status: Chronic Current Visit: No Qualifiers: Code(s): G47.30 - Sleep apnea, unspecified (4) Kidney disease Status: Chronic Current Visit: No Code(s): N28.9 - Disorder of kidney and ureter, unspecified (5) IBS (irritable bowel syndrome) Status: Chronic Current Visit: No Code(s): K58.9 - Irritable bowel syndrome without diarrhea (6) Hypertension Status: Chronic Current Visit: No Code(s): I10 - Essential (primary) hypertension (7) Diabetes Status: Chronic Current Visit: No Code(s): E11.9 - Type 2 diabetes mellitus without complications (8) Hyperpigmentation of skin Status: Chronic Current Visit: Yes Code(s): L81.9 - Disorder of pigmentation, unspecified (9) Lipodermatosclerosis Status: Chronic Current Visit: Yes Qualifiers: Laterality: bilateral Qualified Code(s): I83.11 - Varicose veins of right lower extremity with inflammation; I83.12 - Varicose veins of left lower extremity with inflammation Code(s): I83.10 - Varicose veins of unspecified lower extremity with inflammation (10) Venous ulcer of left leg Status: Chronic Current Visit: Yes Code(s): I83.029 - Varicose veins of left lower extremity with ulcer of unspecified site (11) Venous hypertension, chronic, with ulcer Status: Chronic Current Visit: Yes Code(s): I87.319 - Chronic venous hypertension (idiopathic) with ulcer of unspecified lower extremity (12) Chronic venous insufficiency Status: Chronic Current Visit: Yes (13) Obstructive sleep apnea on CPAP Status: Chronic Current Visit: No Code(s): G47.33 - Obstructive sleep apnea (adult) (pediatric) (14) Obesity Status: Chronic Current Visit: Yes Code(s): E66.9 - Obesity, unspecified (15) Chronic kidney disease Status: Chronic Current Visit: No Qualifiers: Code(s): N18.9 - Chronic kidney disease, unspecified (16) Hypothyroidism Status: Chronic Current Visit: No Qualifiers: Code(s): E03.9 - Hypothyroidism, unspecified (17) Hypercholesteremia Status: Chronic Current Visit: No Code(s): E78.00 - Pure hypercholesterolemia, unspecified (18) Diabetes mellitus Status: Chronic Current Visit: No Code(s): E11.9 - Type 2 diabetes mellitus without complications (19) CHF (congestive heart failure) Status: Chronic Current Visit: No Code(s): I50.9 - Heart failure, unspecified (20) Postphlebetic syndrome with ulcer Status: Chronic Current Visit: Yes Qualifiers: Laterality: bilateral Qualified Code(s): I87.013 - Postthrombotic syndrome with ulcer of bilateral lower extremity Code(s): I87.019 - Postthrombotic syndrome with ulcer of unspecified lower extremity (21) History of pulmonary embolism Status: Chronic Current Visit: No Code(s): Z86.711 - Personal history of pulmonary embolism (22) History of DVT (deep vein thrombosis) Status: Chronic Current Visit: No Code(s): Z86.718 - Personal history of other venous thrombosis and embolism (23) Asthma Status: Chronic Current Visit: No Qualifiers: Code(s): J45.909 - Unspecified asthma, uncomplicated History of Present Illness Date of Service: 05/20/19 Chief Complaint: Bilateral lower extremity swelling and edema with bilateral, distal lower extremity ulcerations History of Wound: This is a 69-year-old female who presents with severe swelling and edema in both lower extremities, associated with recent ulcerations bilaterally. Patient has had chronic problems in her lower extremities, and presents now with acute exacerbations. She has chronic swelling and edema, as well as chronic hyperpigmentation and lipodermatosclerosis bilaterally. In recent months, the patient has developed blistering and superficial ulcerations and excoriations, with a great deal of exudative drainage from her lower extremities bilaterally. Patient claims to be fairly active, though sits a great deal each day. She sleeps in a chair. She does not elevate her legs to heart level or higher. This is despite having been treated for similar problems in the past, where she was advised to elevate her lower extremities, avoid idle standing and sitting, to remain active, to maintain appropriate weight, and to use adequate compression to her lower extremities bilaterally. She has previously obtained CircAid compression garments for daily use. These recommended measures have not been observed. The patient has had previous venous ulcerations in the lower extremities in the past. She has undergone a vein stripping in the right lower extremity remotely, though the specific procedure is not known. She also has a history of deep vein thrombosis and pulmonary embolism in 2012, which was nearly fatal. The patient is obese. She has severe hyperpigmentation, hemosiderin staining, and lipodermatosclerosis in both lower extremities involving the gaiter areas. . The patient has previously undergone a noninvasive lower extremity arterial study in the past. The noninvasive lower extremity arterial study was normal in the left lower extremity, with triphasic Doppler waveforms at ankle level on the left, and a normal ankle-brachial index and normal digital-brachial index. Past Medical History Past Medical History: Chronic Problems (Last Reviewed 05/06/19 @ 09:43 by Ba Montana DO) Leg edema (Chronic) Venous ulcer of right leg (Chronic) Morbid obesity with BMI of 50.0-59.9, adult (Chronic) Sleep apnea (Chronic) Skin ulcer (Chronic) Pneumonia (Chronic) Kidney failure (Chronic) Kidney disease (Chronic) IBS (irritable bowel syndrome) (Chronic) Hypertension (Chronic) Heart failure (Chronic) Diabetes (Chronic) Asthma (Chronic) Arthritis (Chronic) Seasonal allergies (Chronic) Leg swelling (Chronic) Hyperpigmentation of skin (Chronic) Lipodermatosclerosis (Chronic) Venous ulcer of left leg (Chronic) Venous hypertension, chronic, with ulcer (Chronic) Chronic venous insufficiency (Chronic) Morbid obesity with BMI of 50.0-59.9, adult (Chronic) Obstructive sleep apnea on CPAP (Chronic) Obesity (Chronic) Peripheral neuropathy (Chronic) Chronic kidney disease (Chronic) Hypothyroidism (Chronic) Hypercholesteremia (Chronic) Diabetes mellitus (Chronic) CHF (congestive heart failure) (Chronic) Postphlebetic syndrome with ulcer (Chronic) History of pulmonary embolism (Chronic) History of DVT (deep vein thrombosis) (Chronic) Asthma (Chronic) Past Medical History: Patient has a history of chronic kidney disease, hypertension, congestive heart failure, irritable bowel syndrome, obesity, asthma, Alzheimer's disease, hyper- lipidemia, and sleep apnea. Her history is negative for myocardial infarction, cancer, and thyroid disease. Surgical History: - - The patient underwent open reduction and internal fixation of a right elbow fracture on March 24, 2019. She has also undergone a vein stripping procedure in the past, though the specific nature of the procedure is not known. She is a G2, P2 Ab0 Allergies/Adverse Reactions: Allergies exenatide [From [place]] Allergy (Intermediate, Verified 03/18/19 10:12) Unknown Sulfa (Sulfonamide Antibiotics) Allergy (Intermediate, Verified 03/18/19 10:12) Unknown Tetracyclines Allergy (Intermediate, Verified 03/18/19 10:12) Unknown Home Medications: Ambulatory Orders Medication Instructions Recorded Cholecalciferol (VIT D3) [Vitamin 2,000 unit PO DAILY 01/05/15 D3] pravastatin 20 mg tablet 20 mg PO DAILY #90 tab 01/02/19 albuterol sulfate HFA 90 2 puff INHALATION Q6H PRN #8.5 g 03/21/19 mcg/actuation aerosol inhaler acetaminophen 325 mg capsule 325 mg PO Q6H PRN 04/01/19 amlodipine 10 mg tablet 10 mg PO DAILY #90 tab 04/24/19 lisinopril 10 mg tablet 10 mg PO DAILY #90 tab 04/24/19 tramadol 50 mg tablet 50 mg PO Q6H 04/24/19 olanzapine 5 mg tablet 5 mg PO QHS #30 tab 04/28/19 diltiazem CD 180 mg 180 mg PO DAILY 05/06/19 capsule,extended release 24 hr levothyroxine 100 mcg capsule 100 mcg PO QDAY #90 cap 05/06/19 nystatin 100,000 unit/gram topical 1 applic TOPICAL TID #60 g 05/06/19 powder - Family History Maternal Family History: Family History (Last Reviewed 05/06/19 @ 09:43 by Ba Montana DO) Father Heart disease Mother Hypertension - - The patient's father at age of 74 with a history of myocardial infarction. Patient's mother at age of 82 with a history of heart disease. Social History: Patient lives with her . 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 She denies use of alcohol tobacco products. Lives: Spouse/ Significant Other Smoking Status: Never smoker Tobacco Use: Non-smoker Alcohol: None Drugs: None Review of Systems Constitutional: Denies: Chills, Fever, Weight Change Eyes: Denies: Pain, Vision Change HEENT: Denies: Difficulty Hearing, Difficulty Swallowing, Sinus Congestion Cardiovascular: Denies: Chest Pain, Palpitations Respiratory: Denies: Cough, Shortness of Breath Gastrointestinal: Denies: Diarrhea, Nausea, Vomiting Genitourinary: Denies: Dysuria, Hematuria Endocrine: Denies: Heat/ Cold Intolerance, Polydipsia, Polyuria Hematologic/ Lymphatic: Denies: Easy Bruising, Easy Bleeding - Physical Exam Vital Signs Temp Pulse Resp BP 97.3 F L 59 L 18 131/60 H 05/20/19 09:29 05/20/19 09:29 05/20/19 09:29 05/20/19 09:29 General: Alert, Oriented x3, Cooperative, No apparent distress, Well developed, Well nourished, - - Patient is obese. She appears intermittently slightly confused. HEENT: Atraumatic, PERRLA, EOMI, Normocephalic Oral: Moist Mucosa Neck: Supple, No JVD, Negative Carotid Bruits, Negative Hepatojugular Reflux, No Nodes, No Nuchal Rigidity, Trachea Midline Lungs: Clear to auscultation, Normal air movement, No rhonchi, No wheeze, No rales Cardiovascular: Regular rate, Regular Rhythm, Normal S1, Normal S2, No murmurs Abdomen: Soft, Non Tender, Non-Distended, Obese Extremities: No clubbing, No cyanosis, No Calf Tenderness, - - Bilateral lower extremity swelling and edema is noted. Severe hyperpigmentation and lipodermatosclerosis is noted bilaterally. There are multiple superficial excoriations and ulcerations bilaterally. Dimensions are documented elsewhere. Circumferences are documented elsewhere. There is no sign of infection or cellulitis. Wound Measurements and Assessment WC - Nurse 1 - General Ulcer Measurement Start: 05/20/19 09:29 Freq: Status: Active Protocol: Activity Type Activity Date Activity User E-Sign Co-Sign Detail Recorded Client Recorded Date Recorded By Document 05/20/19 09:29 AN [id number] 05/20/19 10:11 AN 05/20/19 09:29 Wound Center Nurse 1 [Ulcer Assessment] #2 left lateral lower leg cluster -Current Size (cm) - Length 8 -Current Size (cm) - Width 5.8 -Current Size (cm) - Depth 0.1 -Total Square Cm 46.4 -Date of Last Picture (Recall this 05/20/19 field) -Photo Taken Yes -Classification - Thickness Full Thickness without Exposed Support Structure -Exudate Amt Large -Exudate Type Serosanguineous -Wound Margin Flat & Intact -Granulation Amt Large (67-100%) -Granulation Quality Red -Slough/Fibrin Yes -Necrosis Amt Small (1-33%) -Necrotic Tissue Type Adherent Slough -Structure Exposed None/Limited to Skin Breakdown -Texture ([place]-wound Skin Appearance) Assessed, Localized Edema -Moisture ([place]-wound Skin Appearance Assessed, ) Maceration, Weeping -Color ([place]-wound Skin Appearance) Assessed -Temperature ([place]-wound Skin No Abnormality Appearance) (Pt Warm) -Tenderness on Palpation ([place]-wound Yes Skin Appearance) -Ulcer Cleansing soap and water -Foul Odor after Cleansing No -Anesthetic Used 4% Lidocaine Solution #1 right lower leg cluster -Current Size (cm) - Length 13.5 -Current Size (cm) - Width 14 -Current Size (cm) - Depth 0.1 -Total Square Cm 189.0 -Photo Taken Yes -Classification - Thickness Full Thickness without Exposed Support Structure -Exudate Amt Large -Exudate Type Serosanguineous -Wound Margin Flat & Intact -Granulation Amt Large (67-100%) -Granulation Quality Red -Slough/Fibrin Yes -Necrosis Amt Small (1-33%) -Necrotic Tissue Type Adherent Slough -Structure Exposed None/Limited to Skin Breakdown -Texture ([place]elsea-wound Skin Appearance) Assessed, Localized Edema -Moisture ([place]elsea-wound Skin Appearance Assessed, ) Maceration, Weeping -Color (Kelsea-wound Skin Appearance) Assessed, Erythema, Hemosiderin Staining -Temperature ([place]-wound Skin No Abnormality Appearance) (Pt Warm) -Tenderness on Palpation ([place]elsea-wound Yes Skin Appearance) -Ulcer Cleansing soap and water -Foul Odor after Cleansing No -Anesthetic Used 4% Lidocaine Solution [Edema Assessment] -Right Calf (cm) 46 -Right Ankle (cm) 25.6 -Left Calf (cm) 46 -Left Ankle (cm) 25 WC - Nurse 2 - General Ulcer CM Notes Start: 05/20/19 09:29 Freq: Status: Active Protocol: Activity Type Activity Date Activity User E-Sign Co-Sign Detail Recorded Client Recorded Date Recorded By Document 05/20/19 10:50 DV [id number] 05/20/19 10:52 DV 05/20/19 10:50 Wound Center Nurse 2 [Procedure/Treatment] #2 left lateral lower leg cluster -Time 10:50 -Correct Patient Yes -Correct Side, Site, Position Yes -Correct Procedure No -Procedure Performed No -Wound/Ulcer Outcome Not Healed #1 right lower leg cluster -Time 10:51 -Correct Patient Yes -Correct Side, Site, Position Yes -Correct Procedure No -Procedure Performed No -Wound/Ulcer Outcome Not Healed [See Physician Procedure note for Specifics] Pain Scale: 0-10 Numeric [Pain] -Is Patient Pain Free? Yes Neurological: Cranial nerves II-XII grossly intact, Neuro grossly intact Psych/Mental Status: Normal Affect, Appropriate, Alert and oriented to time, place, person, mood and affect Debridement Note Post-Debridement Measurements/Treatment WC - Nurse 2 - General Ulcer CM Notes Start: 05/20/19 09:29 Freq: Status: Active Protocol: Activity Type Activity Date Activity User E-Sign Co-Sign Detail Recorded Client Recorded Date Recorded By Document 05/20/19 10:50 DV [id number] 05/20/19 10:52 DV 05/20/19 10:50 Wound Center Nurse 2 #2 left lateral lower leg cluster -Time 10:50 -Correct Patient Yes -Correct Side, Site, Position Yes -Correct Procedure No -Procedure Performed No -Wound/Ulcer Outcome Not Healed #1 right lower leg cluster -Time 10:51 -Correct Patient Yes -Correct Side, Site, Position Yes -Correct Procedure No -Procedure Performed No -Wound/Ulcer Outcome Not Healed Pain Scale: 0-10 Numeric Is Patient Pain Free? Yes No debridement was completed today Assessment/Plan Active Problems (Last Reviewed 05/06/19 @ 09:43 by Ba Montana DO) Leg edema (Chronic) Venous ulcer of right leg (Chronic) Hyperpigmentation of skin (Chronic) Lipodermatosclerosis (Chronic) Venous ulcer of left leg (Chronic) Venous hypertension, chronic, with ulcer (Chronic) Chronic venous insufficiency (Chronic) Obesity (Chronic) Postphlebetic syndrome with ulcer (Chronic) Assessment: This is a 69-year-old morbidly obese female with severe swelling and edema in her lower extremities, which has developed into multiple superficial open ulcerations and excoriations. It appears as though her presenting symptoms are related to her lifestyle habits. She and her have been advised to elevate her lower extremities as much as possible. She is to sleep on a flat mattress at night. She is to elevate her lower extremities as much as possible. Elevation is to be to heart level, or higher. This is to be achieved even during daytime hours. The patient is to avoid idle standing and sitting. Activity has been encouraged. Weight loss has been strongly encouraged. We are to implement compression to the lower extremities as well. We have assessed ankle-brachial indices today. The right ankle-brachial index cannot be determined due to the noncompressibility of the vasculature. The left ankle-brachial index is 1.0. Prior arterial studies also revealed reasonably good perfusion to ankle level bilaterally. Patient has undergone laboratory studies in recent months, which have been reviewed. Hemoglobin A1c on February 11, 2019, was 5.7. In February, total protein was 7.4, albumin 3.6. CBC and electrolytes were generally unremarkable. Plan: A lengthy discussion has been undertaken with the patient and her as to the appropriate conservative treatment measures. The patient is to elevate her lower extremities as much as possible. She has been encouraged to sleep on a flat mattress at night. She has been encouraged to elevate her lower extremities much as possible, even during daytime hours. Elevation is to be to heart level, or higher. She has been discouraged from prolonged idle sitting. Activity has been encouraged. Weight loss has been also encouraged. We are to implement compression of the lower extremities by means of Unna boots, which will be applied twice weekly. The patient will follow-up on an outpatient basis for reevaluation in 1 week. She has been encouraged to optimize her nutritional intake. She is also been advised to optimize her glycemic control. Influenza vaccine was not administered today. The patient is not a smoker. She weighs 200 pounds. She stands 5 feet 6 inches tall. Her BMI is 32.3. This places her in a class I obesity category. Weight loss has been recommended, and collaboration with her primary care physician in this regard has been advised.
[2019-05-23 11:34] VITALS: BP 154/77; PULSE 73; RESP 20; TEMP 36.4; BMI 32.3
== END 2019-05-25 23:59 ==
LOC: WC 11:15
PROVIDERS: Family Provider Family Medicine; PCP Family Medicine; Visit Provider Surgery
DX: I83.018 Varicose veins of right lower extremity with ulcer other part of lower leg (principal); R60.0 Localized edema; E66.9 Obesity, unspecified; K58.9 Irritable bowel syndrome, unspecified; E11.622 Type 2 diabetes mellitus with other skin ulcer; G47.33 Obstructive sleep apnea (adult) (pediatric); E11.22 Type 2 diabetes mellitus with diabetic chronic kidney disease; N18.9 Chronic kidney disease, unspecified; I83.028 Varicose veins of left lower extremity with ulcer other part of lower leg; E03.9 Hypothyroidism, unspecified; F02.80 Dementia in other diseases classified elsewhere, unspecified severity, without behavioral disturbance, psychotic disturbance, mood disturbance, and anxiety; G30.9 Alzheimer's disease, unspecified; L97.822 Non-pressure chronic ulcer of other part of left lower leg with fat layer exposed; L97.812 Non-pressure chronic ulcer of other part of right lower leg with fat layer exposed; E78.00 Pure hypercholesterolemia, unspecified; I13.0 Hypertensive heart and chronic kidney disease with heart failure and stage 1 through stage 4 chronic kidney disease, or unspecified chronic kidney disease; J45.909 Unspecified asthma, uncomplicated; E11.42 Type 2 diabetes mellitus with diabetic polyneuropathy; M19.90 Unspecified osteoarthritis, unspecified site; I50.9 Heart failure, unspecified; Z68.32 Body mass index [BMI] 32.0-32.9, adult; Z71.3 Dietary counseling and surveillance; Z86.711 Personal history of pulmonary embolism; Z86.718 Personal history of other venous thrombosis and embolism
CPT/HCPCS: 29580; 99211; 99213; G0463

== ENCOUNTER 2019-05-30 11:45 | Outpatient (RCR) | payer MEDICARE, OTHER, SELFPAY ==
[2019-05-26 01:09] VITALS: BP 154/77; PULSE 73; RESP 20; TEMP 36.4
[2019-05-27 09:14] VITALS: BP 162/74; PULSE 89; RESP 16; TEMP 36.8; BMI 32.3
--- NOTE | 2019-05-27 09:39 | PCM.WC.HP ---
(1) Leg edema Status: Chronic Current Visit: Yes Code(s): R60.0 - Localized edema (2) Venous ulcer of right leg Status: Chronic Current Visit: Yes Code(s): I83.019 - Varicose veins of right lower extremity with ulcer of unspecified site; L97.919 - Non-pressure chronic ulcer of unspecified part of right lower leg with unspecified severity (3) Morbid obesity with BMI of 50.0-59.9, adult Status: Chronic Current Visit: Yes Code(s): E66.01 - Morbid (severe) obesity due to excess calories; Z68.43 - Body mass index (BMI) 50-59.9, adult (4) Sleep apnea Status: Chronic Current Visit: No Qualifiers: Code(s): G47.30 - Sleep apnea, unspecified (5) Skin ulcer Status: Chronic Current Visit: Yes Qualifiers: Non-pressure ulcer stage: with fat layer exposed Qualified Code(s): L98.492 - Non-pressure chronic ulcer of skin of other sites with fat layer exposed Code(s): L98.499 - Non-pressure chronic ulcer of skin of other sites with unspecified severity (6) Kidney disease Status: Chronic Current Visit: No Code(s): N28.9 - Disorder of kidney and ureter, unspecified (7) IBS (irritable bowel syndrome) Status: Chronic Current Visit: No Code(s): K58.9 - Irritable bowel syndrome without diarrhea (8) Hypertension Status: Chronic Current Visit: No Code(s): I10 - Essential (primary) hypertension (9) Diabetes Status: Chronic Current Visit: No Code(s): E11.9 - Type 2 diabetes mellitus without complications (10) Asthma Status: Chronic Current Visit: No Code(s): J45.909 - Unspecified asthma, uncomplicated (11) Arthritis Status: Chronic Current Visit: No Code(s): M19.90 - Unspecified osteoarthritis, unspecified site (12) Seasonal allergies Status: Chronic Current Visit: No Code(s): J30.2 - Other seasonal allergic rhinitis (13) Leg swelling Status: Chronic Current Visit: Yes Code(s): M79.89 - Other specified soft tissue disorders (14) Hyperpigmentation of skin Status: Chronic Current Visit: Yes Code(s): L81.9 - Disorder of pigmentation, unspecified (15) Lipodermatosclerosis Status: Chronic Current Visit: Yes Qualifiers: Laterality: bilateral Code(s): I83.10 - Varicose veins of unspecified lower extremity with inflammation (16) Venous ulcer of left leg Status: Chronic Current Visit: Yes Code(s): I83.029 - Varicose veins of left lower extremity with ulcer of unspecified site (17) Venous hypertension, chronic, with ulcer Status: Chronic Current Visit: Yes Code(s): I87.319 - Chronic venous hypertension (idiopathic) with ulcer of unspecified lower extremity (18) Chronic venous insufficiency Status: Chronic Current Visit: Yes (19) Morbid obesity with BMI of 50.0-59.9, adult Status: Chronic Current Visit: Yes Code(s): E66.01 - Morbid (severe) obesity due to excess calories; Z68.43 - Body mass index (BMI) 50-59.9, adult (20) Obstructive sleep apnea on CPAP Status: Chronic Current Visit: No Code(s): G47.33 - Obstructive sleep apnea (adult) (pediatric) (21) Obesity Status: Chronic Current Visit: No Code(s): E66.9 - Obesity, unspecified (22) Peripheral neuropathy Status: Chronic Current Visit: No Code(s): G62.9 - Polyneuropathy, unspecified (23) Chronic kidney disease Status: Chronic Current Visit: No Qualifiers: Code(s): N18.9 - Chronic kidney disease, unspecified (24) Hypothyroidism Status: Chronic Current Visit: No Qualifiers: Code(s): E03.9 - Hypothyroidism, unspecified (25) Hypercholesteremia Status: Chronic Current Visit: No Code(s): E78.00 - Pure hypercholesterolemia, unspecified (26) Diabetes mellitus Status: Chronic Current Visit: No Code(s): E11.9 - Type 2 diabetes mellitus without complications (27) CHF (congestive heart failure) Status: Chronic Current Visit: No Code(s): I50.9 - Heart failure, unspecified (28) Postphlebetic syndrome with ulcer Status: Chronic Current Visit: Yes Qualifiers: Laterality: bilateral Code(s): I87.019 - Postthrombotic syndrome with ulcer of unspecified lower extremity (29) History of pulmonary embolism Status: Chronic Current Visit: No Code(s): Z86.711 - Personal history of pulmonary embolism (30) History of DVT (deep vein thrombosis) Status: Chronic Current Visit: No Code(s): Z86.718 - Personal history of other venous thrombosis and embolism (31) Asthma Status: Chronic Current Visit: No Qualifiers: Code(s): J45.909 - Unspecified asthma, uncomplicated (32) Alzheimers disease Status: Chronic Current Visit: Yes Code(s): G30.9 - Alzheimer's disease, unspecified; F02.80 - Dementia in other diseases classified elsewhere without behavioral disturbance History of Present Illness Date of Service: 05/27/19 Chief Complaint: Bilateral lower extremity swelling and edema with bilateral, distal lower extremity ulcerations History of Wound: This is a 69-year-old female who presented with severe swelling and edema in both lower extremities, associated with recent ulcerations bilaterally. Patient has had chronic problems in her lower extremities, and presents now with acute exacerbations. She has chronic swelling and edema, as well as chronic hyperpigmentation and lipodermatosclerosis bilaterally. In recent months, the patient has developed blistering and superficial ulcerations and excoriations, with a great deal of exudative drainage from her lower extremities bilaterally. Patient claims to be fairly active, though sits a great deal each day. She sleeps in a chair. She does not elevate her legs to heart level or higher. This is despite having been treated for similar problems in the past, where she was advised to elevate her lower extremities, avoid idle standing and sitting, to remain active, to maintain appropriate weight, and to use adequate compression to her lower extremities bilaterally. She has previously obtained CircAid compression garments for daily use. These recommended measures have not been observed. The patient has had previous venous ulcerations in the lower extremities in the past. She has undergone a vein stripping in the right lower extremity remotely, though the specific procedure is not known. She also has a history of deep vein thrombosis and pulmonary embolism in 2012, which was nearly fatal. The patient is obese. She has severe hyperpigmentation, hemosiderin staining, and lipodermatosclerosis in both lower extremities involving the gaiter areas. . The patient has previously undergone a noninvasive lower extremity arterial study in the past. The noninvasive lower extremity arterial study was normal in the left lower extremity, with triphasic Doppler waveforms at ankle level on the left, and a normal ankle-brachial index and normal digital-brachial index. Past Medical History Past Medical History: Chronic Problems (Last Reviewed 05/06/19 @ 09:43 by Ba Montana DO) Leg edema (Chronic) Venous ulcer of right leg (Chronic) Alzheimers disease (Chronic) Morbid obesity with BMI of 50.0-59.9, adult (Chronic) Sleep apnea (Chronic) Skin ulcer (Chronic) Pneumonia (Chronic) Kidney failure (Chronic) Kidney disease (Chronic) IBS (irritable bowel syndrome) (Chronic) Hypertension (Chronic) Heart failure (Chronic) Diabetes (Chronic) Asthma (Chronic) Arthritis (Chronic) Seasonal allergies (Chronic) Leg swelling (Chronic) Hyperpigmentation of skin (Chronic) Lipodermatosclerosis (Chronic) Venous ulcer of left leg (Chronic) Venous hypertension, chronic, with ulcer (Chronic) Chronic venous insufficiency (Chronic) Morbid obesity with BMI of 50.0-59.9, adult (Chronic) Obstructive sleep apnea on CPAP (Chronic) Obesity (Chronic) Peripheral neuropathy (Chronic) Chronic kidney disease (Chronic) Hypothyroidism (Chronic) Hypercholesteremia (Chronic) Diabetes mellitus (Chronic) CHF (congestive heart failure) (Chronic) Postphlebetic syndrome with ulcer (Chronic) History of pulmonary embolism (Chronic) History of DVT (deep vein thrombosis) (Chronic) Asthma (Chronic) Surgical History: - - The patient underwent open reduction and internal fixation of a right elbow fracture on March 24, 2019. She has also undergone a vein stripping procedure in the past, though the specific nature of the procedure is not known. She is a G2, P2 Ab0 Allergies/Adverse Reactions: Allergies exenatide [From Byetta] Allergy (Intermediate, Verified 03/18/19 10:12) Unknown Sulfa (Sulfonamide Antibiotics) Allergy (Intermediate, Verified 03/18/19 10:12) Unknown Tetracyclines Allergy (Intermediate, Verified 03/18/19 10:12) Unknown Home Medications: Ambulatory Orders Medication Instructions Recorded Cholecalciferol (VIT D3) [Vitamin 2,000 unit PO DAILY 01/05/15 D3] pravastatin 20 mg tablet 20 mg PO DAILY #90 tab 01/02/19 albuterol sulfate HFA 90 2 puff INHALATION Q6H PRN #8.5 g 03/21/19 mcg/actuation aerosol inhaler acetaminophen 325 mg capsule 325 mg PO Q6H PRN 05/07/19 amlodipine 10 mg tablet 10 mg PO DAILY #90 tab 04/24/19 lisinopril 10 mg tablet 10 mg PO DAILY #90 tab 04/24/19 tramadol 50 mg tablet 50 mg PO Q6H 04/24/19 olanzapine 5 mg tablet 5 mg PO QHS #30 tab 04/28/19 diltiazem CD 180 mg 180 mg PO DAILY 05/06/19 capsule,extended release 24 hr levothyroxine 100 mcg capsule 100 mcg PO QDAY #90 cap 05/06/19 nystatin 100,000 unit/gram topical 1 applic TOPICAL TID #60 g 05/06/19 powder - Family History Maternal Family History: Family History (Last Reviewed 05/06/19 @ 09:43 by Ba Montana DO) Father Heart disease Mother Hypertension - - The patient's father at age of 74 with a history of myocardial infarction. Patient's mother at age of 82 with a history of heart disease. Smoking Status: Never smoker Tobacco Use: Non-smoker Review of Systems Constitutional: Denies: Chills, Fever, Weight Change Eyes: Denies: Pain, Vision Change HEENT: Denies: Difficulty Hearing, Difficulty Swallowing, Sinus Congestion Cardiovascular: Denies: Chest Pain, Palpitations Respiratory: Denies: Cough, Shortness of Breath Gastrointestinal: Denies: Diarrhea, Nausea, Vomiting Genitourinary: Denies: Dysuria, Hematuria Endocrine: Denies: Heat/ Cold Intolerance, Polydipsia, Polyuria Hematologic/ Lymphatic: Denies: Easy Bruising, Easy Bleeding - Physical Exam Vital Signs Temp Pulse Resp BP 98.2 F 89 16 162/74 H 05/27/19 09:14 05/27/19 09:14 05/27/19 09:14 05/27/19 09:14 General: Alert, Oriented x3, Cooperative, No apparent distress, Well developed, Well nourished HEENT: Atraumatic, PERRLA, EOMI, Normocephalic Oral: Moist Mucosa Neck: No JVD Lungs: Normal air movement Abdomen: Non-Distended Extremities: No clubbing, No cyanosis, No Calf Tenderness, - - Severe swelling and edema is noted in the lower extremity's bilaterally. Severe skin changes are noted bilaterally as well. The skin changes involve venous stasis dermatitis, hyperpigmentation, lipodermatosclerosis, as well as superficial ulcerations in the gaiter areas of both lower extremities. No ulcerations are more pronounced in the right lower extremity, where there is a moderate amount of bioburden and nonviable tissue. There appears to have been no significant improvement since the patient was last evaluated. Ulcer dimensions are documented elsewhere. There is no obvious sign of infection or cellulitis. Circumference measurements are documented elsewhere. Wound Measurements and Assessment WC - Nurse 1 - General Ulcer Measurement Start: 05/27/19 09:14 Freq: Status: Active Protocol: Activity Type Activity Date Activity User E-Sign Co-Sign Detail Recorded Client Recorded Date Recorded By Document 05/27/19 09:14 GILSON [id number] 05/27/19 09:20 GILSON 05/27/19 09:14 Wound Center Nurse 1 [Ulcer Assessment] #2 left lateral lower leg cluster -Combined with other wound No -Current Size (cm) - Length 7 -Current Size (cm) - Width 3 -Current Size (cm) - Depth 0.1 -Total Square Cm 21 -Photo Taken No -Epithelialization None Present -Tunneling No -Undermining/Tunneling No -Circular Undermining No -Exudate Amt Large -Exudate Type Serosanguineous -Wound Margin Flat & Intact -Granulation Amt Medium (34-66%) -Granulation Quality Red -Slough/Fibrin Yes -Necrosis Amt Medium (34-66%) -Necrotic Tissue Type Adherent Slough -Structure Exposed N/A -Texture (Kelsea-wound Skin Appearance) Assessed, Localized Edema -Moisture (Kelsea-wound Skin Appearance Assessed,Dry/ ) Scaly -Color (Kelsea-wound Skin Appearance) Assessed, Hemosiderin Staining -Temperature (Kelsea-wound Skin No Abnormality Appearance) (Pt Warm) -Tenderness on Palpation (Kelsea-wound No Skin Appearance) -Ulcer Cleansing Wound Cleanser -Foul Odor after Cleansing No -Anesthetic Used 4% Lidocaine Solution #1 right lower leg cluster -Combined with other wound No -Current Size (cm) - Length 6 -Current Size (cm) - Width 10 -Current Size (cm) - Depth 0.1 -Total Square Cm 60 -Photo Taken No -Epithelialization None Present -Tunneling No -Undermining/Tunneling No -Circular Undermining No -Granulation Amt None Present (0 %) -Slough/Fibrin Yes -Necrosis Amt Large (67-100%) -Necrotic Tissue Type Adherent Slough -Structure Exposed N/A -Texture (Kelsea-wound Skin Appearance) Assessed, Localized Edema -Moisture (Kelsea-wound Skin Appearance Assessed,Dry/ ) Scaly -Color (Kelsea-wound Skin Appearance) Assessed, Hemosiderin Staining -Ulcer Cleansing Wound Cleanser -Foul Odor after Cleansing No -Anesthetic Used 4% Lidocaine Solution [Edema Assessment] -Lower Limb Edema Present Yes -Right Calf (cm) 45.6 -Right Ankle (cm) 25.2 -Left Calf (cm) 44 -Left Ankle (cm) 25.3 Neurological: Cranial nerves II-XII grossly intact, Neuro grossly intact Psych/Mental Status: Normal Affect, - - The patient manifests symptoms consistent with her diagnosis of Alzheimer's disease. She is somewhat confused. Her answer to simple questions is somewhat rambling and incoherent. Debridement Note Laterality: Right - Distal lower extremity Type of Debridement: Excisional debridement Anesthesia Used: 5% Lidocaine Gel Depth: Down to and including healthy tissue, in the subcutaneous layer Percentage of wound debrided: 100 Instrument Used: 5mm curette Tissue Removed: Bioburden and nonviable tissue Severity: Fat Layer Exposed Amount of bleeding with debridement: Mild Bleeding Controlled with: Compression and gauze Patient tolerated procedure well Assessment/Plan Active Problems (Last Reviewed 05/06/19 @ 09:43 by Ba Montana DO) Leg edema (Chronic) Venous ulcer of right leg (Chronic) Alzheimers disease (Chronic) Morbid obesity with BMI of 50.0-59.9, adult (Chronic) Skin ulcer (Chronic) Leg swelling (Chronic) Hyperpigmentation of skin (Chronic) Lipodermatosclerosis (Chronic) Venous ulcer of left leg (Chronic) Venous hypertension, chronic, with ulcer (Chronic) Chronic venous insufficiency (Chronic) Morbid obesity with BMI of 50.0-59.9, adult (Chronic) Postphlebetic syndrome with ulcer (Chronic) Assessment: This is a 69-year-old morbidly obese female with severe swelling and edema in her lower extremities, which has developed into multiple superficial open ulcerations and excoriations. It appears as though her presenting symptoms are related to her lifestyle habits. She and her have been advised to elevate her lower extremities as much as possible. She is to sleep on a flat mattress at night. She is to elevate her lower extremities as much as possible. Elevation is to be to heart level, or higher. This is to be achieved even during daytime hours. The patient is to avoid idle standing and sitting. Activity has been encouraged. Weight loss has been strongly encouraged. We are to continue with compression to the lower extremities as well. We are to continue the use of Unna boots which will be applied to both lower extremities, and will be changed twice weekly. Unfortunately, it is now evident that the patient continues to be noncompliant. She removed her Unna boot's at least one day prior to today's appointment. In discussions with the patient's , he indicates that he is having difficulty managing the patient at home, given her Alzheimer's dementia and her inability to cooperate with recommended treatment measures. The patient's indicates that she is not elevating her legs as advised. As result of her failure to elevate her lower extremities, and the removal of her Unna boots/compression wraps, she presents today with severe swelling and edema in both lower extremities, showing no improvement from the time of her previous visit. Patient's is attempting to seek the resources necessary to manage his , but indicates he is getting little assistance from her primary care physician. It may well be that the patient warrants correction placement, or other resources which may be available to the patient in the home setting. Thus far, however, it is evident that the patient has failed to subscribe to the recommended measures appropriate to the management of her lower extremity swelling, edema, and ulcerations. She is not elevating her legs to the degree recommended, she is sitting for prolonged periods of time idlely, she appears to be relatively inactive, and she has failed to maintain the compression wraps which have been applied twice weekly in our facility. We will continue with current measures which have been implemented, and have urged the patient and her to comply with the recommended measures. Patient has undergone laboratory studies in recent months, which have been reviewed. Hemoglobin A1c on February 11, 2019, was 5.7. In February, total protein was 7.4, albumin 3.6. CBC and electrolytes were generally unremarkable. Plan: A lengthy discussion has been undertaken with the patient and her as to the appropriate conservative treatment measures. The patient is to elevate her lower extremities as much as possible. She has been encouraged to sleep on a flat mattress at night. She has been encouraged to elevate her lower extremities much as possible, even during daytime hours. Elevation is to be to heart level, or higher. She has been discouraged from prolonged idle sitting. Activity has been encouraged. Weight loss has been also encouraged. We are to continue compression of the lower extremities by means of Unna boots, which will be applied twice weekly. The patient will follow-up on an outpatient basis for reevaluation in 1 week. She has been encouraged to optimize her nutritional intake. She has also been advised to optimize her glycemic control. Influenza vaccine was not administered today. The patient is not a smoker. She weighs 200 pounds. She stands 5 feet 6 inches tall. Her BMI is 32.3. This places her in a class I obesity category. Weight loss has been recommended, and collaboration with her primary care physician in this regard has been advised.
== END 2019-06-25 23:59 ==
LOC: WC 11:45
PROVIDERS: Family Provider Family Medicine; PCP Family Medicine; Visit Provider Surgery
DX: I83.018 Varicose veins of right lower extremity with ulcer other part of lower leg (principal); R60.0 Localized edema; E66.01 Morbid (severe) obesity due to excess calories; N18.9 Chronic kidney disease, unspecified; K58.9 Irritable bowel syndrome, unspecified; J45.909 Unspecified asthma, uncomplicated; M19.90 Unspecified osteoarthritis, unspecified site; M79.89 Other specified soft tissue disorders; L97.822 Non-pressure chronic ulcer of other part of left lower leg with fat layer exposed; I83.028 Varicose veins of left lower extremity with ulcer other part of lower leg; G47.33 Obstructive sleep apnea (adult) (pediatric); E03.9 Hypothyroidism, unspecified; G30.9 Alzheimer's disease, unspecified; F02.80 Dementia in other diseases classified elsewhere, unspecified severity, without behavioral disturbance, psychotic disturbance, mood disturbance, and anxiety; L97.829 Non-pressure chronic ulcer of other part of left lower leg with unspecified severity; E11.622 Type 2 diabetes mellitus with other skin ulcer; E11.22 Type 2 diabetes mellitus with diabetic chronic kidney disease; G62.9 Polyneuropathy, unspecified; E78.00 Pure hypercholesterolemia, unspecified; I13.0 Hypertensive heart and chronic kidney disease with heart failure and stage 1 through stage 4 chronic kidney disease, or unspecified chronic kidney disease; I50.9 Heart failure, unspecified; Z71.3 Dietary counseling and surveillance; Z68.43 Body mass index [BMI] 50.0-59.9, adult; Z86.711 Personal history of pulmonary embolism; Z86.718 Personal history of other venous thrombosis and embolism; Z91.19 Patient's noncompliance with other medical treatment and regimen
CPT/HCPCS: 11042; 11045; 29580; 99212; G0463

== ENCOUNTER 2019-05-30 12:07 | Inpatient (IN) | payer MEDICARE, OTHER, SELFPAY ==
[2019-05-27 09:14] VITALS: BMI 32.3
[2019-05-30 12:08] VITALS: BP 95/45; PULSE 62; RESP 16; TEMP 37.2; O2SAT 100; BMI 35.6
--- NOTE | 2019-05-30 12:34 | ED.DCSUM_ITS ---
History of Present Illness Chief Complaint: Rash Informant: Patient, Family Limited by: Dementia Onset: Days, - - 3 to 4 days Context: Gradual Onset Location: Diffuse Current Severity: Moderate Maximum Severity: Moderate Narrative: Patient presents with complaint of rash over the past 3 or 4 days. It is itchy. Patient denies any new medications. She goes to the wound center for chronic lower extremity wounds. She was seen there this morning and her Unna boots were replaced. I reviewed the note from wound center but do not see any docu mentation of the rash that she was then sent here for. Family states the only thing they can think of that is different as they use a white-cream under her Unna boots last week. They did not use that today. - Past Medical History (1) Alzheimers disease Status: Chronic (2) Chronic venous insufficiency Status: Chronic (3) Leg edema Status: Chronic (4) Lipodermatosclerosis Status: Chronic (5) Asthma Status: Chronic (6) CHF (congestive heart failure) Status: Chronic (7) Chronic kidney disease Status: Chronic (8) Hypothyroidism Status: Chronic Past Medical History - Allergies and Home Meds Allergies/Adverse Reactions: Allergies exenatide [From Byetta] Allergy (Intermediate, Verified 05/30/19 12:08) Unknown Sulfa (Sulfonamide Antibiotics) Allergy (Intermediate, Verified 05/30/19 12:08) Unknown Tetracyclines Allergy (Intermediate, Verified 05/30/19 12:08) Unknown Primary Care Physician: Ba Montana DO [Primary Care Provider] - Prior records reviewed: Yes Past Medical History: - - Reviewed Surgical History: - - The patient underwent open reduction and internal fixation of a right elbow fracture on March 24, 2019. She has also undergone a vein stripping procedure in the past, though the specific nature of the procedure is not known. She is a G2, P2 Ab0 Lives: Spouse/ Significant Other Smoking Status: Never smoker - Family History Maternal Family History: Family History (Last Reviewed 05/06/19 @ 09:43 by Ba Montana DO) Father Heart disease Mother Hypertension Family History: Reports: - - The patient's father at age of 74 with a history of myocardial infarction. Patient's mother at age of 82 with a history of heart disease. Review of Systems General: Denies: Chills, Fever Cardiovascular: Denies: Chest pain Respiratory: Denies: Dyspnea, Cough Gastrointestinal: Denies: Abdominal pain, Nausea, Vomiting Skin: Reports: Rash Physical Exam Vital Signs/Narrative: Vital Signs Temp Pulse Resp BP Pulse Ox 05/30/19 12:08 99 F 62 16 95/45 L 100 General: Well nourished, Well developed ENT: Moist mucous membranes Cardiovascular: Regular rate, Regular rhythm Respiratory: No distress, CTA bilaterally Abdomen: Soft, Nontender Skin: - - Flat erythematous scattered lesions over the extremities with more confluent areas of erythema over the trunk. There is no rash noted over the face. There are no target lesions or blistered areas. Psychological: Normal affect Diagnostic/Tx/Re-eval Abnormal Lab Results 05/30/19 05/30/19 13:01 13:01 WBC 10.4 RBC 3.96 L Hgb 11.5 L Hct 35.3 L MCV 89.1 MCH 29.0 MCHC 32.6 RDW 14.1 RDW Differential 46.3 H Plt Count 185 MPV 9.4 Neut % (Auto) Not Reportable Absolute Neuts (auto) 8.9 H Absolute Lymphs (auto) 0.73 L Total Counted 100 Neutrophils % (Manual) 86 H Lymphocytes % (Manual) 7 L Monocytes % (Manual) 6 Eosinophils % (Manual) 1 Differential Comment SCANNED Platelet Estimate ADEQUATE ESR 37 H Sodium 139 Potassium 4.3 Chloride 106 Carbon Dioxide 24.0 Anion Gap 9 BUN 53 H Creatinine 4.54 H Estim Creat Clear Calc 9.96 Est GFR (MDRD) Af Amer 12 L Est GFR (MDRD) Non-Af 10 L BUN/Creatinine Ratio 11.7 Glucose 124 H Calcium 8.6 C-React Prot Ext Range 55.50 H - Medical Decision Making Patient presents with rash. Laboratory evaluation reveals significant worsening of her baseline renal function. I did review the last 2 office notes from her primary care physician. He had documented that the patient was started on Zyprexa, which can cause dress syndrome and similar type rash. I spoke with the nurse in the office who reviewed notes and it appears that the medication was started on May 06. I expressed my concern to patient and about this medication. states that the doctor told him to stop it, and that she has not been taking it. There is nothing documented in the office notes or from the staff at the office that she has stopped this medication. Patient's states that she only takes 3 medications, but when reviewing her medication list there are at least 5 or 6 different medications that he appears to be giving her. I am concerned that she may still be getting the Zyprexa. Regardless, the patient has rash and significantly worsening renal function. I do feel she should be observed in her medications watched closely. The rash does appear to be consistent with a drug reaction. I will speak with the hospitalist regarding admission. ED Disposition - Plan for ED Patient: Referrals: Ba Montana DO [Primary Care Provider] -
[2019-05-30] MEDS: MethylPREDNISolone 125 MG/2 ML Vial IV ×2 (13:00→22:26)
[2019-05-30 13:01] VITALS: RESP 14
[2019-05-30] MEDS: DiphenhydrAMINE 25 MG Capsule PO (13:01)
[2019-05-30 13:18] LABS: Hematocrit 35.3 % (37-47); Hemoglobin 11.5 g/dl (12.0-15.0); Mean Corp Hgb Conc 32.6 g/gl (32-36); Mean Corpuscular Volume 89.1 fL (81-99); Mean Platelet Vol. 9.4 fl (6.2-12.0); Platelet Count 185 K/mm3 (150-450); RBC Distribution Width CV 14.1 % (11.6-14.6); RBC Distribution Width SD 46.3 fl (35.1-43.9); Red Blood Count 3.96 M/mm3 (4.2-5.4); White Blood Count 10.4 K/mm3 (4.4-11.0)
[2019-05-30 13:22] LABS: Erythrocyte Sedimentation Rate 37 mm/hr (0-30)
[2019-05-30 13:27] LABS: Anion Gap 9 (5-15); BUN 53 mg/dL (7-18); BUN/Creat Ratio 11.7 RATIO (10-20); Calcium,Total 8.6 mg/dL (8.5-10.1); Chloride 106 mmol/L (98-107); Creatinine, Serum 4.54 mg/dL (0.55-1.02); EST Glomerular Filtration Rate 10 mL/min (>60); Est Glom Filt Rate - Afr Amer 12 mL/min (>60); Estimated Creatinine Clearance 9.96 ml/min; Glucose 124 mg/dL (74-106); Potassium 4.3 mmol/L (3.5-5.1); Sodium Level 139 mmol/L (136-145)
[2019-05-30 15:07] LABS: Differential Indicated MANUAL DIFF; Neutrophil-Segmented 86 % (47-70); POSITIVE COUNT NO; POSITIVE DIFFERENTIAL NO; POSITIVE MORPHOLOGY NO; Total Cells Counted 100 (MANUAL DIFF)
[2019-05-30 15:08] LABS: Eosinophil 1 % (0-5); Lymphocyte 7 % (19-41); Monocyte 6 % (0-10)
[2019-05-30 15:09] LABS: Differential Comment SCANNED; Platelet Estimate ADEQUATE (ADEQ)
[2019-05-30 15:11] LABS: Absolute Neutrophil Count 8.9 X10^3/uL (2.0-7.7); Lymphocyte # 0.73 X10^3/ul (4.0); Neutrophil # 8.94 X10^3/uL (2.7-7.7)
[2019-05-30 15:12] LABS: Absolute Lymphocyte Count 0.73 X10^3/ul (0.83-4.51)
[2019-05-30 15:18] VITALS: BP 130/70; PULSE 84; RESP 17; O2SAT 95
--- NOTE | 2019-05-30 15:49 | HP.PCM_ITS ---
History of Present Illness Date of Admission: 05/30/19 Chief Complaint: Generalized rash The patient is a 69 year old F with an extensive past medical history as listed. She was admitted through the ED on 05/30/2019 with complaint of a generalized rash for about 2 days duration. History was mainly taken from patient's as patient has a bit confused though she is able to carry on a conversation. Patient went to the wound care center today for chronic lower extremity wounds and had her Unna boots replaced. However she was sent to the ED on account of a generalized rash which has once that had been going on for a few days. said patient had recently been given some new medication for dementia but he has stopped giving it to her. Apart from that he states he had been given a usual medications but does not know the name of the medications. He notices that she has started getting a papular rash on her chest and abdomen a few days ago which subsequently became generalized and spread to her back in her arms. Rash was itchy. She has not been in contact with any plants and denies that she is changed her laundry detergent. She did not have any associated fever or chills no shortness of breath or cough, no diarrhea or vomiting. She is never had a similar rash before. In the ED, vitals were stable and CBC was not given for hemoglobin of 11.5 with normal eosinophils of 1%. WBC was also 10.4. Blood chemistry showed creatinine of 4.54 with baseline being around 2 with CRP elevated at 55 and ESR of 37. She has been admitted to be managed for generalized rash likely medication induced. Past Medical History Past Medical History (Chronic Problems): Chronic Problems (Last Reviewed 05/06/19 @ 09:43 by Ba Montana DO) Leg edema (Chronic) Venous ulcer of right leg (Chronic) Alzheimers disease (Chronic) Morbid obesity with BMI of 50.0-59.9, adult (Chronic) Sleep apnea (Chronic) Skin ulcer (Chronic) Pneumonia (Chronic) Kidney failure (Chronic) Kidney disease (Chronic) IBS (irritable bowel syndrome) (Chronic) Hypertension (Chronic) Heart failure (Chronic) Diabetes (Chronic) Asthma (Chronic) Arthritis (Chronic) Seasonal allergies (Chronic) Leg swelling (Chronic) Hyperpigmentation of skin (Chronic) Lipodermatosclerosis (Chronic) Venous ulcer of left leg (Chronic) Venous hypertension, chronic, with ulcer (Chronic) Chronic venous insufficiency (Chronic) Morbid obesity with BMI of 50.0-59.9, adult (Chronic) Obstructive sleep apnea on CPAP (Chronic) Obesity (Chronic) Peripheral neuropathy (Chronic) Chronic kidney disease (Chronic) Hypothyroidism (Chronic) Hypercholesteremia (Chronic) Diabetes mellitus (Chronic) CHF (congestive heart failure) (Chronic) Postphlebetic syndrome with ulcer (Chronic) History of pulmonary embolism (Chronic) History of DVT (deep vein thrombosis) (Chronic) Asthma (Chronic) Medical History: Medical History (Last Reviewed 05/06/19 @ 09:43 by Ba Montana DO) Sleep apnea (Chronic) G47.30 Skin ulcer (Chronic) L98.499 Pneumonia (Chronic) J18.9 Kidney failure (Chronic) N19 Kidney disease (Chronic) N28.9 IBS (irritable bowel syndrome) (Chronic) K58.9 Hypertension (Chronic) I10 Heart failure (Chronic) I50.9 Diabetes (Chronic) E11.9 Asthma (Chronic) J45.909 Arthritis (Chronic) M19.90 Seasonal allergies (Chronic) J30.2 Allergies exenatide [From Byetta] Allergy (Intermediate, Verified 05/30/19 12:08) Unknown Sulfa (Sulfonamide Antibiotics) Allergy (Intermediate, Verified 05/30/19 12:08) Unknown Tetracyclines Allergy (Intermediate, Verified 05/30/19 12:08) Unknown Home Medications: Ambulatory Orders Medication Instructions Recorded Cholecalciferol (VIT D3) [Vitamin 2,000 unit PO DAILY 01/05/15 D3] pravastatin 20 mg tablet 20 mg PO DAILY #90 tab 01/02/19 albuterol sulfate HFA 90 2 puff INHALATION Q6H PRN #8.5 g 03/21/19 mcg/actuation aerosol inhaler acetaminophen 325 mg capsule 325 mg PO Q6H PRN 04/01/19 amlodipine 10 mg tablet 10 mg PO DAILY #90 tab 04/24/19 lisinopril 10 mg tablet 10 mg PO DAILY #90 tab 04/24/19 tramadol 50 mg tablet 50 mg PO Q6H 04/24/19 diltiazem CD 180 mg 180 mg PO DAILY 05/06/19 capsule,extended release 24 hr levothyroxine 100 mcg capsule 100 mcg PO QDAY #90 cap 05/06/19 nystatin 100,000 unit/gram topical 1 applic TOPICAL TID #60 g 05/06/19 powder Surgical History: Surgical History (Last Reviewed 05/06/19 @ 09:43 by Ba Montana DO) History of elbow surgery Z98.890 02/2019, due to fracture Surgical History: - - The patient underwent open reduction and internal fixation of a right elbow fracture on March 24, 2019. She has also undergone a vein stripping procedure in the past, though the specific nature of the procedure is not known. She is a G2, P2 Ab0 Psychiatric History: No pertinent psych hx MULTI MEDIA SPECIALIST History: No pertinent MULTI MEDIA SPECIALIST history Lives: Spouse/ Significant Other Smoking Status: Never smoker - *Family History Maternal Family History: Family History (Last Reviewed 05/06/19 @ 09:43 by Ba Montana DO) Father Heart disease Mother Hypertension History Items: - - The patient's father at age of 74 with a history of myocardial infarction. Patient's mother at age of 82 with a history of heart disease. Review of Systems Constitutional: Denies: Chills, Fever, Malaise, Weakness, Weight Change, Fatigue Eyes: Denies: Blurred vision HEENT: Denies: Head Aches, Sinus Congestion, Sinus Drainage Cardiovascular: Denies: Chest Pain, Palpitations Respiratory: Denies: Cough, Shortness of breath at rest, Sputum production Gastrointestinal: Denies: Abdominal Pain, Nausea, Vomiting Genitourinary: Denies: Dysuria Musculoskeletal: Denies: Joint Pain, Joint Tenderness Skin: Reports: Pruritis, Rash, Skin Changes, Wounds Neurological: Denies: Numbness, Tingling, Focal weakness Psychiatric: Denies: Anxiety, Depression, Homicidal Ideations, Suicidal Ideations Hematologic/ Lymphatic: Denies: Easy Bruising, Easy Bleeding VTE Information - Inpt Only VTE Present on Admission: No VTE Pharm Prophylaxis ordered?: Yes - Physical Exam General: Alert, Oriented x3, Cooperative, Confused HEENT: Atraumatic, PERRLA, EOMI, Normocephalic Oral: Moist Mucosa Neck: Supple, No JVD, Negative Carotid Bruits Lungs: Clear to auscultation, Normal air movement, No rhonchi, No wheeze, No rales Cardiovascular: Regular rate, Regular Rhythm, Normal S1, Normal S2, No murmurs Abdomen: Bowel Sounds Present, Soft, Non Tender, Non-Distended, No Hepato- splenomegaly Extremities: No clubbing, No cyanosis, No edema, Capillary Refill Less than 3 Seconds, - - both LEs wrapped in YOLANDA bandage Skin: - - generalised erythematous papulo-macular rash over chest, abdomen, back and buttocks. Has very few targetoid lesions visualised over her right inner arm. Has erythematous papular rash also over her arms, with some large plaque formation over her arms. face is spared Musculoskeletal: No Tenderness to Palpation of Joints or Extremities Lymphatic: No Cervical, Supraclavicular, or Inguinal Adenopathy Neurological: Cranial nerves II-XII grossly intact, Neuro grossly intact, Motor Exam 5/5 strength throughout Psych/Mental Status: Normal Affect Vital Signs Temp Pulse Resp BP Pulse Ox 99 F 84 17 130/70 H 95 05/30/19 12:08 05/30/19 15:18 05/30/19 15:18 05/30/19 15:18 05/30/19 15:18 Oxygen Delivery Method Room Air Weight: 207 lb 7.28 oz Body Mass Index (BMI) 35.6 Finger Stick Blood Glucose 127 Laboratory Tests Past 24 Hrs 05/30/19 05/30/19 13:01 13:01 WBC 10.4 RBC 3.96 L Hgb 11.5 L Hct 35.3 L MCV 89.1 MCH 29.0 MCHC 32.6 RDW 14.1 RDW Differential 46.3 H Plt Count 185 MPV 9.4 Neut % (Auto) Not Reportable Absolute Neuts (auto) 8.9 H Absolute Lymphs (auto) 0.73 L Total Counted 100 Neutrophils % (Manual) 86 H Lymphocytes % (Manual) 7 L Monocytes % (Manual) 6 Eosinophils % (Manual) 1 Differential Comment SCANNED Platelet Estimate ADEQUATE ESR 37 H Sodium 139 Potassium 4.3 Chloride 106 Carbon Dioxide 24.0 Anion Gap 9 BUN 53 H Creatinine 4.54 H Estim Creat Clear Calc 9.96 Est GFR (MDRD) Af Amer 12 L Est GFR (MDRD) Non-Af 10 L BUN/Creatinine Ratio 11.7 Glucose 124 H Calcium 8.6 C-React Prot Ext Range 55.50 H Assessment/Plan All Active Problems (Last Reviewed 05/06/19 @ 09:43 by Ba Montana DO) Acute paranoia (Acute) Olecranon fracture (Acute) 69-year-old lady admitted with a complaint of generalized rash. 1. Generalised rash likely due to drug reaction * is not very clear about which medication she had been taking though he says she was recently started on a new medication for dementia by PCP. * From PCPs note on 05/06/2019, patient was started on olanzapine. * Admits to [facility]. * Hold all medications for now. * Start IV Bffb-Fuvvbm-bjnu-dose * Hydrate with IV fluid normal saline * Monitor patient closely; it was for this breaths but there is evidence of mucosal involvement, patient may need to be transferred to a tertiary center where she will specialist dermatology service available. * 2. DARA on CKD: * Creatinine is 4.54. Baseline creatinine is around 2.5. * Check Sherice. Check renal ultrasound. Hydrate with IV fluids and monitor. * 3. Dementia: * From PCPs note, he suspects Lewy body dementia. * Patient is quite confused though she is able to communicate. * Will monitor. To hold all medications for now on account of rash due to drug reaction. * 4. Hypertension: On lisinopril and amlodipine. 5. A. fib: Rate controlled. On Cardizem. 6. Hyperlipidemia: On statin. DVT prophylaxis: Heparin Code Visit OBSV E&M: 98334 Initial observation care L3
[2019-05-30 15:55] VITALS: BMI 35.6
[2019-05-30 16:24] VITALS: BP 109/47; PULSE 70; RESP 18; O2SAT 93
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
--- NOTE | 2019-05-30 17:15 | US_ITS ---
HISTORY: ARF EXAMINATION: US Kidney(s) complete (eg, kidneys T bladder) TECHNIQUE: Humphrey scale and color doppler images were obtained of the kidneys. COMPARISON: 07/21/14 renal ultrasound. FINDINGS: RIGHT KIDNEY: 10.0 x 3.9 x 4.2 cm. Renal cortex 1.1 cm thick within normal limits. Several small renal cysts, largest 1.9 cm exophytic off the lower pole. Several small nonobstructing renal stones, none larger than 5 mm. No hydronephrosis, no acute findings. LEFT KIDNEY: 9.9 x 4.2 x 4.7 cm. Renal cortex 1.4 cm thick within normal limits. Several incidental cysts are noted, largest 1.5 cm diameter in the mid pole cortex. Several small nonobstructing renal stones. No hydronephrosis, no acute findings. URINARY BLADDER: Nondistended and not well visualized. US/Kidney and Bladder IMPRESSION: No acute findings. Several small bilateral nonobstructing renal stones and small renal cysts. at 1925 Reported and signed by: Ralph Bernal MD Electronically Signed: Ralph Bernal, at 19:24 EDT Tel , Service support ,
[2019-05-30 17:19] VITALS: BMI 35.6
[2019-05-30 17:33] VITALS: BP 105/55; PULSE 60; RESP 16; TEMP 37; O2SAT 96
[2019-05-30 17:47] VITALS: BMI 35.6
[2019-05-30 18:05] LABS: Urine Sodium 35 mmol/L (Not Establ.)
[2019-05-30] MEDS: 0.9% Normal Saline 1,000 ML 150 ML IV (18:08)
[2019-05-30 19:45] VITALS: BP 95/44; PULSE 60; RESP 16; TEMP 36.5; O2SAT 92
[2019-05-31] MEDS: 0.9% Normal Saline 1,000 ML 150 ML IV (01:58)
[2019-05-31 02:50] VITALS: BP 131/62; PULSE 74; RESP 18; TEMP 36.4; O2SAT 100
[2019-05-31] MEDS: MethylPREDNISolone 125 MG/2 ML Vial IV (05:34)
[2019-05-31 06:26] LABS: Bedside Glucose 182 mg/dL (70-110)
[2019-05-31 07:08] LABS: Absolute Lymphocyte Count 0.59 X10^3/ul (0.83-4.51); Absolute Neutrophil Count 6.4 X10^3/uL (2.0-7.7); Hematocrit 34.8 % (37-47); Hemoglobin 11.5 g/dl (12.0-15.0); Lymphocyte # 0.59 X10^3/ul (4.0); Lymphocyte % 8.4 % (19-41); Mean Corpuscular Volume 87.9 fL (81-99); Mean Platelet Vol. 10.1 fl (6.2-12.0); Monocyte# 0.06 X10^3/uL; Monocyte% 0.9 % (0-10); Neutrophil # 6.38 X10^3/uL (2.7-7.7); Neutrophil % 90.6 % (47-70); Platelet Count 174 K/mm3 (150-450); RBC Distribution Width CV 13.8 % (11.6-14.6); RBC Distribution Width SD 44.3 fl (35.1-43.9); Red Blood Count 3.96 M/mm3 (4.2-5.4)
[2019-05-31 07:17] LABS: Differential Indicated SCAN CRITERIA MET; POSITIVE COUNT NO; POSITIVE DIFFERENTIAL YES; POSITIVE MORPHOLOGY NO
--- NOTE | 2019-05-31 07:30 | PCM.PN.HOSP ---
Subjective: Patient is a 77-year-old lady admitted with generalized rash Objective: GENERAL: cooperative HEENT: Atraumatic; EYES; Anicteric, NECK; supple, normal thyroid, RESPIRATORY: Diminished to auscultation bilaterally, CARDIOVASCULAR: Regular S1 S2, GI: soft, non-tender, normoactive bowel sounds, : No Renal angle tenderness; EXTREMITIES: No edema, no clubbing, . MUSCULOSKELETAL: No Joint Tenderness; NEURO: Awake; no lateralizing signs. SKIN: Extensive maculopapular rash involving the trunk and extremities with areas of confluence PSYCH; flat affect Vitals/I&O's: Vital Signs Temp Pulse Resp BP Pulse Ox 97.6 F L 74 18 131/62 H 100 05/31/19 02:50 05/31/19 02:50 05/31/19 02:50 05/31/19 02:50 05/31/19 02:50 Oxygen Delivery Method Room Air Weight: 94.1 kg Body Mass Index (BMI) 35.6 Finger Stick Blood Glucose 127 Intake and Output for Last 24 Hours 05/29/19 05/30/19 05/31/19 23:59 23:59 23:59 Intake Total 150 / 984 1647 / 1647 Output Total 250 / 250 Balance -100 / 734 1647 / 1647 Laboratory Results 05/30/19 13:01: WBC 10.4, RBC 3.96 L, Hgb 11.5 L, Hct 35.3 L, MCV 89.1, MCH 29.0, MCHC 32.6, RDW 14.1, RDW Differential 46.3 H, Plt Count 185, MPV 9.4, Neut % (Auto) Not Reportable, Absolute Neuts (auto) 8.9 H, Absolute Lymphs (auto) 0.73 L, Total Counted 100, Neutrophils % (Manual) 86 H, Lymphocytes % (Manual) 7 L, Monocytes % (Manual) 6, Eosinophils % (Manual) 1, Differential Comment SCANNED, Platelet Estimate ADEQUATE, ESR 37 H 05/30/19 13:01: Sodium 139, Potassium 4.3, Chloride 106, Carbon Dioxide 24.0, Anion Gap 9, BUN 53 H, Creatinine 4.54 H, Estim Creat Clear Calc 9.96, Est GFR (MDRD) Af Amer 12 L, Est GFR (MDRD) Non-Af 10 L, BUN/Creatinine Ratio 11.7, Glucose 124 H, Calcium 8.6, C-React Prot Ext Range 55.50 H 05/30/19 17:45: Urine Creatinine 296.00 05/30/19 17:45: Ur Random Sodium 35 05/31/19 06:19: POC Glucose 182 H 05/31/19 06:25: WBC 7.0, RBC 3.96 L, Hgb 11.5 L, Hct 34.8 L, MCV 87.9, MCH 29.0, MCHC 33.0, RDW 13.8, RDW Differential 44.3 H, Plt Count 174, MPV 10.1, Immature Gran % (Auto) 0.100, Neut % (Auto) 90.6 H, Lymph % (Auto) 8.4 L, Nash % (Auto) 0.9, Eos % (Auto) 0.0, Baso % (Auto) 0.0, Absolute Neuts (auto) 6.4, Absolute Lymphs (auto) 0.59 L, Total Counted Pending 05/31/19 06:25: Sodium Pending, Potassium Pending, Chloride Pending, Carbon Dioxide Pending, Anion Gap Pending, BUN Pending, Creatinine Pending, Est GFR (MDRD) Af Amer Pending, Est GFR (MDRD) Non-Af Pending, BUN/Creatinine Ratio Pending, Glucose Pending, Calcium Pending, Total Bilirubin Pending, AST Pending, ALT Pending, Alkaline Phosphatase Pending, Total Protein Pending, Albumin Pending Current Medications Albuterol Sulfate (Ventolin Aerosols) 2.5 mg INHALATION Q4H PRN PRN PRN Reason: SOB &/OR WHEEZING Dextrose (D50w Syringe) 0 gm IV X1 PRN; Protocol PRN Reason: Hypoglycemia Enoxaparin Sodium (Lovenox) 30 mg SC DAILY@1000 HIRAM Glucagon () 1 mg IM .X1 PRN PRN Reason: Hypoglycemia Methylprednisolone (Solu-Medrol) 125 mg IV Q8 [facility] Last Admin: 05/31/19 05:34 Dose: 125 mg Documented by: Nutritional Formula (Lactose Free) (Ensure Enlive) 120 ml PO 4X/DAY [facility] Last Admin: 05/30/19 22:26 Dose: 120 ml Documented by: Sodium Chloride () 10 - 40 ml IV UD PRN PRN Reason: SALINE FLUSH Medical Necessity - Tobacco Use Smoking Status: Never smoker Tobacco Use: Non-smoker Assessment/Plan All Active Problems (Last Reviewed 05/06/19 @ 09:43 by Ba Montana DO) Acute paranoia (Acute) Olecranon fracture (Acute) Patient is a 77-year-old lady admitted with generalized rash 1. Acute generalized rash currently of undetermined etiology at this point; thought to be drug reaction admitted to regular nursing floor; started on solumedrol Benadryl as needed 2. Acute kidney injury patient baseline creatinine 1.4-2. Creatinine on admission 4.54 which is gone up to 5.15. Patient is on lisinopril held on admission. As part of her management ordered renal duplex as well as CPK levels 3. Chronic kidney disease stage IV with baseline creatinine of 1.4-2 patient is seen by nephrology Dr. Dave consult placed to him 4. Dementia; supportive care 5. Dyslipidemia history 7. Paroxysmal atrial fibrillation patient is on Cardizem for rate control not on systemic anticoagulation (significant risk for falls in view of her underlying dementia) 8. Hypothyroidism-patient is on levothyroxine home dose continued 9. DVT prophylaxis; SC Lovenox Code Visit OBSV E&M: 76698 Subsequent observation care L3
[2019-05-31 07:35] LABS: ALB/GLOB Ratio 0.7 RATIO (0.9-2.4); AST(SGOT) 12 U/L (15-37); Alanine Aminotransfer ALT/SGPT 9 U/L (13-56); Albumin, Serum 2.4 g/dL (3.2-5.0); Alkaline Phosphatase 98 U/L (45-117); Anion Gap 11 (5-15); BUN 63 mg/dL (7-18); BUN/Creat Ratio 12.2 RATIO (10-20); Calcium,Total 8.4 mg/dL (8.5-10.1); Chloride 108 mmol/L (98-107); Creatinine, Serum 5.15 mg/dL (0.55-1.02); EST Glomerular Filtration Rate 9 mL/min (>60); Est Glom Filt Rate - Afr Amer 11 mL/min (>60); Estimated Creatinine Clearance 8.78 ml/min; Globulin 3.6 g/dL (2.2-4.2); Glucose 207 mg/dL (74-106); Potassium 4.8 mmol/L (3.5-5.1); Sodium Level 138 mmol/L (136-145)
[2019-05-31 08:16] VITALS: BP 109/52; PULSE 61; RESP 16; TEMP 35.9; O2SAT 99
[2019-05-31] MEDS: 0.9% NaCl Peripheral Flush Adult/Peds IV ×3 (08:17→13:22)
[2019-05-31 08:20] VITALS: PULSE 60
[2019-05-31 09:00] LABS: CPK Total, Creatine Kinase 25 U/L (26-192)
[2019-05-31 09:12] LABS: Differential Comment SCANNED
[2019-05-31] MEDS: Levothyroxine 100 MCG Tablet PO (10:22)
[2019-05-31] MEDS: Enoxaparin 30 MG/0.3 ML Syringe SC (10:22)
[2019-05-31] MEDS: 0.9% Normal Saline 1,000 ML 125 ML IV ×2 (11:58→19:13)
[2019-05-31] MEDS: MethylPREDNISolone 125 MG/2 ML Vial 60 MG IV ×2 (13:23→21:53)
[2019-05-31 14:27] VITALS: BP 125/61; PULSE 73; RESP 18; TEMP 36.3; O2SAT 96
[2019-05-31] MEDS: DiphenhydrAMINE 25 MG Capsule PO ×2 (14:31→20:26)
--- NOTE | 2019-05-31 18:07 | PCM.CONS.R ---
Problem List (1) Kidney failure Status: Chronic Qualifiers: Renal failure chronicity: chronic Chronic kidney disease stage: stage 2 (mild) Qualified Code(s): N18.2 - Chronic kidney disease, stage 2 (mild) Consultation - Renal PCP/ Referring MD: Requesting physician: [] Primary care physician: Ba Montana DO - History of Present Illness History of Present Illness: The patient is a 69 year old F PMH of CKD stage 3 with baseline CR 1.4-1.7 mg/dL. legs wound, HTN, CHF, DM, and dementia Pt was sent o ED from wound center due to diffuse rash for the last few days. Pt was admitted and started on IV steroid. Renal team was consulted for worsening kidney function. Pt presented with Cr 4.5 mg/dL . Pt has been on IVF NS at 100 125 cc/hour. Cr increased to 5.1 mg/dL Pt is poor historian. her at bedside denied use NSAIDs. No recent IVF contrast. Pt said she is making urine Renal US showed B/L renal cysts and non obstructing stone ROS: 12 systems review is negative except diffuse rash] - Allergies Allergies: Allergies exenatide [From [place]] Allergy (Intermediate, Verified 05/30/19 12:08) Unknown Sulfa (Sulfonamide Antibiotics) Allergy (Intermediate, Verified 05/30/19 12:08) Unknown Tetracyclines Allergy (Intermediate, Verified 05/30/19 12:08) Unknown - Current Medications Current Medications: Current Medications Albuterol Sulfate (Ventolin Aerosols) 2.5 mg INHALATION Q4H PRN PRN PRN Reason: SOB &/OR WHEEZING Dextrose (D50w Syringe) 0 gm IV X1 PRN; Protocol PRN Reason: Hypoglycemia Diphenhydramine HCl (Benadryl) 25 mg PO TID PRN PRN PRN Reason: PRURITIS Last Admin: 05/31/19 14:31 Dose: 25 mg Documented by: Enoxaparin Sodium (Lovenox) 30 mg SC DAILY@1000 H[facility]AM Last Admin: 05/31/19 10:22 Dose: 30 mg Documented by: Glucagon () 1 mg IM .X1 PRN PRN Reason: Hypoglycemia Sodium Chloride () 1,000 mls @ 125 mls/hr IV .Q8H HIRAM Last Admin: 05/31/19 11:58 Dose: 125 mls/hr Documented by: Levothyroxine Sodium (Synthroid) 100 mcg PO DAILY@0600 [facility] Last Admin: 05/31/19 10:22 Dose: 100 mcg Documented by: Methylprednisolone (Solu-Medrol) 60 mg IV Q8 [facility] Last Admin: 05/31/19 13:23 Dose: 60 mg Documented by: Sodium Chloride () 10 - 40 ml IV UD PRN PRN Reason: SALINE FLUSH Last Admin: 05/31/19 13:22 Dose: 10 ml Documented by: - Past Medical History Past Medical History (Chronic Problems): Chronic Problems (Last Reviewed 05/06/19 @ 09:43 by Ba Montana DO) Leg edema (Chronic) Venous ulcer of right leg (Chronic) Alzheimers disease (Chronic) Morbid obesity with BMI of 50.0-59.9, adult (Chronic) Sleep apnea (Chronic) Skin ulcer (Chronic) Pneumonia (Chronic) Kidney failure (Chronic) Kidney disease (Chronic) IBS (irritable bowel syndrome) (Chronic) Hypertension (Chronic) Heart failure (Chronic) Diabetes (Chronic) Asthma (Chronic) Arthritis (Chronic) Seasonal allergies (Chronic) Leg swelling (Chronic) Hyperpigmentation of skin (Chronic) Lipodermatosclerosis (Chronic) Venous ulcer of left leg (Chronic) Venous hypertension, chronic, with ulcer (Chronic) Chronic venous insufficiency (Chronic) Morbid obesity with BMI of 50.0-59.9, adult (Chronic) Obstructive sleep apnea on CPAP (Chronic) Obesity (Chronic) Peripheral neuropathy (Chronic) Chronic kidney disease (Chronic) Hypothyroidism (Chronic) Hypercholesteremia (Chronic) Diabetes mellitus (Chronic) CHF (congestive heart failure) (Chronic) Postphlebetic syndrome with ulcer (Chronic) History of pulmonary embolism (Chronic) History of DVT (deep vein thrombosis) (Chronic) Asthma (Chronic) - Past Surgical History Surgical History: - - The patient underwent open reduction and internal fixation of a right elbow fracture on March 24, 2019. She has also undergone a vein stripping procedure in the past, though the specific nature of the procedure is not known. She is a G2, P2 Ab0 - Social History Smoking Status: Never smoker - Family History Maternal Family History: Family History (Last Reviewed 05/06/19 @ 09:43 by Ba Montana DO) Father Heart disease Mother Hypertension History Items: - - The patient's father at age of 74 with a history of myocardial infarction. Patient's mother at age of 82 with a history of heart disease. - Physical Exam General: Oriented x3 HEENT: Atraumatic, PERRLA Oral: Moist Mucosa Neck: Supple, No JVD, Negative Carotid Bruits Lungs: Clear to auscultation, Normal air movement, No rhonchi, No wheeze Cardiovascular: Regular rate, Regular Rhythm, Normal S1, Normal S2 Abdomen: Bowel Sounds Present, Soft, Non Tender, Non-Distended Extremities: No clubbing, No cyanosis, Edema - +1 edema of LE Lymphatic: No Cervical, Supraclavicular, or Inguinal Adenopathy Neurological: Cranial nerves II-XII grossly intact, Neuro grossly intact Psych/Mental Status: Appropriate Vital Signs Temp Pulse Resp BP Pulse Ox 97.4 F L 73 18 125/61 H 96 05/31/19 14:27 05/31/19 14:27 05/31/19 14:27 05/31/19 14:27 05/31/19 14:27 Oxygen Delivery Method Room Air Weight: 94.1 kg Body Mass Index (BMI) 35.6 Finger Stick Blood Glucose 127 Intake and Output for Last 24 Hours 05/29/19 05/30/19 05/31/19 23:59 23:59 23:59 Intake Total 150 / 984 3264 / 3264 Output Total 250 / 250 150 / 150 Balance -100 / 734 3114 / 3114 Laboratory Tests Past 24 Hrs 05/30/19 05/31/19 05/31/19 17:45 06:25 06:25 WBC 7.0 RBC 3.96 L Hgb 11.5 L Hct 34.8 L MCV 87.9 MCH 29.0 MCHC 33.0 RDW 13.8 RDW Differential 44.3 H Plt Count 174 MPV 10.1 Immature Gran % (Auto) 0.100 Neut % (Auto) 90.6 H Lymph % (Auto) 8.4 L [place] % (Auto) 0.9 Eos % (Auto) 0.0 Baso % (Auto) 0.0 Absolute Neuts (auto) 6.4 Absolute Lymphs (auto) 0.59 L Total Counted Not Reportable Differential Comment SCANNED Sodium 138 Potassium 4.8 Chloride 108 H Carbon Dioxide 19.0 L Anion Gap 11 BUN 63 H Creatinine 5.15 H Estim Creat Clear Calc 8.78 Est GFR (MDRD) Af Amer 11 L Est GFR (MDRD) Non-Af 9 L BUN/Creatinine Ratio 12.2 Glucose 207 H Calcium 8.4 L Total Bilirubin 0.30 AST 12 L ALT 9 L Alkaline Phosphatase 98 Total Creatine Kinase Total Protein 6.0 L Albumin 2.4 L Globulin 3.6 Albumin/Globulin Ratio 0.7 L Urine Creatinine 296.00 05/31/19 06:25 WBC RBC Hgb Hct MCV MCH MCHC RDW RDW Differential Plt Count MPV Immature Gran % (Auto) Neut % (Auto) Lymph % (Auto) [place] % (Auto) Eos % (Auto) Baso % (Auto) Absolute Neuts (auto) Absolute Lymphs (auto) Total Counted Differential Comment Sodium Potassium Chloride Carbon Dioxide Anion Gap BUN Creatinine Estim Creat Clear Calc Est GFR (MDRD) Af Amer Est GFR (MDRD) Non-Af BUN/Creatinine Ratio Glucose Calcium Total Bilirubin AST ALT Alkaline Phosphatase Total Creatine Kinase 25 L Total Protein Albumin Globulin Albumin/Globulin Ratio Urine Creatinine POC Glucose 05/31/19 06:19 POC Glucose 182 H Assessment/Plan All Active Problems (Last Reviewed 05/06/19 @ 09:43 by Ba Montana DO) Acute paranoia (Acute) Olecranon fracture (Acute) 1- DARA on CKD stage 3. baseline Cr seems around 1.4-1.7 mg/d FeNa is 0.4%. Cr continues to worsen despite IVF. DDX AIN vs prerenal/ATN I will continue IVF continue holding lisinopril Will check UA and urine No need for ACID CONDENSER Check renal function in am 2- HTN: BP is well controlled. continue holding ACEI 3- Skin rash: On methylprednisolone IV Renal team will continue to follow
[2019-05-31 20:20] VITALS: BP 121/54; PULSE 61; RESP 18; TEMP 36.7; O2SAT 94
[2019-06-01 00:24] LABS: Mucous, Urine 0 SEEN /hpf (<or=2+); Red Blood Cells-Urine 0 SEEN /hpf (0-5)
[2019-06-01 00:32] LABS: Color, Urine Yellow (Yellow); Glucose, Dipstick 100 mg/dl (Normal); Ketone-Dipstick Negative (Negative); Leukocyte Esterase-Dipstick 500 /ul (Negative); Nitrite-Dipstick Negative (Negative); Occult Blood-Urine 10 /ul (Negative); Protein-Dipstick 30 mg/dl (Negative); Urine Bilirubin Dipstick Negative (Negative); Urine Clarity Clear (Clear); Urine Urobilinogen Normal (Normal)
[2019-06-01 00:38] LABS: Bacteria 1+ /hpf (None Seen); Squamous Epithelial Cells - UA 0-5 SEEN /hpf (5-10); White Blood Cells 10-25 SEEN /hpf (0-5)
[2019-06-01] MEDS: 0.9% Normal Saline 1,000 ML 125 ML IV (03:18)
[2019-06-01 03:20] VITALS: BP 119/48; PULSE 56; RESP 18; TEMP 36.5; O2SAT 98
[2019-06-01] MEDS: DiphenhydrAMINE 25 MG Capsule PO ×2 (03:28→18:11)
[2019-06-01] MEDS: MethylPREDNISolone 125 MG/2 ML Vial 60 MG IV ×3 (05:47→21:35)
[2019-06-01] MEDS: Levothyroxine 100 MCG Tablet PO (05:47)
[2019-06-01 07:32] LABS: Absolute Lymphocyte Count 0.52 X10^3/ul (0.83-4.51); Absolute Neutrophil Count 10.4 X10^3/uL (2.0-7.7); Basophil# 0.01 X10^3/uL; Basophil% 0.1 % (0-1); Hematocrit 34.2 % (37-47); Hemoglobin 11.5 g/dl (12.0-15.0); Lymphocyte # 0.52 X10^3/ul (4.0); Lymphocyte % 4.6 % (19-41); Mean Corp Hgb Conc 33.6 g/gl (32-36); Mean Corpuscular Volume 86.1 fL (81-99); Monocyte# 0.23 X10^3/uL; Monocyte% 2.1 % (0-10); Neutrophil # 10.39 X10^3/uL (2.7-7.7); Neutrophil % 92.8 % (47-70); Platelet Count 201 K/mm3 (150-450); RBC Distribution Width CV 13.4 % (11.6-14.6); RBC Distribution Width SD 41.4 fl (35.1-43.9); Red Blood Count 3.97 M/mm3 (4.2-5.4); White Blood Count 11.2 K/mm3 (4.4-11.0)
[2019-06-01 07:33] LABS: Differential Indicated SCAN CRITERIA MET; POSITIVE COUNT NO; POSITIVE DIFFERENTIAL YES; POSITIVE MORPHOLOGY NO
[2019-06-01 07:43] LABS: Anion Gap 8 (5-15); BUN 72 mg/dL (7-18); BUN/Creat Ratio 13.5 RATIO (10-20); Calcium,Total 8.3 mg/dL (8.5-10.1); Chloride 109 mmol/L (98-107); Creatinine, Serum 5.32 mg/dL (0.55-1.02); EST Glomerular Filtration Rate 9 mL/min (>60); Est Glom Filt Rate - Afr Amer 10 mL/min (>60); Glucose 172 mg/dL (74-106); Potassium 5.2 mmol/L (3.5-5.1); Sodium Level 133 mmol/L (136-145)
[2019-06-01 07:45] VITALS: PULSE 96
[2019-06-01 08:43] VITALS: BP 117/49; PULSE 60; RESP 16; TEMP 37.3; O2SAT 98
[2019-06-01 08:43] LABS: Differential Comment SCANNED
--- NOTE | 2019-06-01 08:49 | PN_ITS ---
Subjective: Patient seen appears comfortable at rest with no significant respiratory distress, her extensive rash however persist. Kidney function continues to worsen Objective: GENERAL: cooperative HEENT: Atraumatic; EYES; Anicteric, NECK; supple, normal thyroid, RESPIRATORY: Diminished to auscultation bilaterally, CARDIOVASCULAR: Regular S1 S2, GI: soft, non-tender, normoactive bowel sounds, : No Renal angle tenderness; EXTREMITIES: No edema, no clubbing, . MUSCULOSKELETAL: No Joint Tenderness; NEURO: Awake; no lateralizing signs. SKIN: Extensive maculopapular rash involving the trunk and extremities with areas of confluence PSYCH; flat affect Vitals/I&O's: Vital Signs Temp Pulse Resp BP Pulse Ox 99.2 F H 60 16 117/49 L 98 06/01/19 08:43 06/01/19 08:43 06/01/19 08:43 06/01/19 08:43 06/01/19 08:43 Oxygen Delivery Method Room Air Weight: 94.1 kg Body Mass Index (BMI) 35.6 Finger Stick Blood Glucose 127 Intake and Output for Last 24 Hours 05/30/19 05/31/19 06/01/19 23:59 23:59 23:59 Intake Total 150 / 984 3264 / 4314 1933 / 1933 Output Total 250 / 250 150 / 350 200 / 200 Balance -100 / 734 3114 / 3964 1733 / 1733 Laboratory Results 05/31/19 06:25: Total Counted Not Reportable, Differential Comment SCANNED 05/31/19 06:25: Total Creatine Kinase 25 L 06/01/19 00:10: Eos Smear Total Cells Pending 06/01/19 00:10: Urine Color Yellow, Urine Clarity Clear, Urine pH 5.0, Ur Specific [place] 1.020, Urine Protein 30 H, Urine Glucose (UA) 100 H, Urine Ketones Negative, Urine Occult Blood 10 H, Urine Nitrite Negative, Urine Bilirubin Negative, Urine Urobilinogen Normal, Ur Leukocyte Esterase 500 H, Urine RBC 0 SEEN, Urine WBC 10-25 SEEN, Ur Squamous Epith Cells 0-5 SEEN, Urine Bacteria 1+, Urine Mucus 0 SEEN 06/01/19 07:07: WBC 11.2 H, RBC 3.97 L, Hgb 11.5 L, Hct 34.2 L, MCV 86.1, MCH 29.0, MCHC 33.6, RDW 13.4, RDW Differential 41.4, Plt Count 201, MPV 10.0, Immature Gran % (Auto) 0.400, Neut % (Auto) 92.8 H, Lymph % (Auto) 4.6 L, [place] % (Auto) 2.1, Eos % (Auto) 0.0, Baso % (Auto) 0.1, Absolute Neuts (auto) 10.4 H, Absolute Lymphs (auto) 0.52 L, Total Counted Not Reportable, Differential Comment SCANNED 06/01/19 07:07: Sodium 133 L, Potassium 5.2 H, Chloride 109 H, Carbon Dioxide 16.0 L, Anion Gap 8, BUN 72 H, Creatinine 5.32 H, Estim Creat Clear Calc 8.50, Est GFR (MDRD) Af Amer 10 L, Est GFR (MDRD) Non-Af 9 L, BUN/Creatinine Ratio 13.5, Glucose 172 H, Calcium 8.3 L, Magnesium 2.0 Current Medications Albuterol Sulfate (Ventolin Aerosols) 2.5 mg INHALATION Q4H PRN PRN PRN Reason: SOB &/OR WHEEZING Dextrose (D50w Syringe) 0 gm IV X1 PRN; Protocol PRN Reason: Hypoglycemia Diphenhydramine HCl (Benadryl) 25 mg PO TID PRN PRN PRN Reason: PRURITIS Last Admin: 06/01/19 03:28 Dose: 25 mg Documented by: Enoxaparin Sodium (Lovenox) 30 mg SC DAILY@1000 [facility] Last Admin: 05/31/19 10:22 Dose: 30 mg Documented by: Glucagon () 1 mg IM .X1 PRN PRN Reason: Hypoglycemia Levothyroxine Sodium (Synthroid) 100 mcg PO DAILY@0600 [facility] Last Admin: 06/01/19 05:47 Dose: 100 mcg Documented by: Methylprednisolone (Solu-Medrol) 60 mg IV Q8 [facility] Last Admin: 06/01/19 05:47 Dose: 60 mg Documented by: Sodium Chloride () 10 - 40 ml IV UD PRN PRN Reason: SALINE FLUSH Last Admin: 05/31/19 13:22 Dose: 10 ml Documented by: Medical Necessity - Tobacco Use Smoking Status: Never smoker Tobacco Use: Non-smoker Assessment/Plan All Active Problems (Last Reviewed 05/06/19 @ 09:43 by Ba R Brown, DO) Acute paranoia (Acute) Olecranon fracture (Acute) Patient is a 77-year-old lady admitted with generalized rash 1. Acute generalized rash currently of undetermined etiology at this point; thought to be drug reaction admitted to regular nursing floor; started on solumedrol Benadryl as needed 2. Acute kidney injury (ATN versus AIN; AIN high on the list in view of the concomitant skin rash which is felt to be a drug reaction) patient baseline creatinine 1.4-2. Creatinine on admission 4.54 which is gone up to 5.15. Patient is on lisinopril held on admission. As part of her management ordered renal duplex as well as CPK levels ~06/01/2019. Patient kidney function continues to worsen. Renal ultrasound was unremarkable. Seen in consultation by nephrology note and recommendations from Dr Dave reviewed 3. Chronic kidney disease stage IV with baseline creatinine of 1.4-2 patient is seen by nephrology Dr. Dave consult placed to him 4. Dementia; supportive care 5. Dyslipidemia history 7. Paroxysmal atrial fibrillation patient is on Cardizem for rate control not on systemic anticoagulation (significant risk for falls in view of her underlying dementia) 8. Hypothyroidism-patient is on levothyroxine home dose continued 9. DVT prophylaxis; SC Lovenox Code Visit Inpatient E&M: 39331 Subs Hosp L2
[2019-06-01] MEDS: 0.9% NaCl Peripheral Flush Adult/Peds IV ×4 (08:50→21:35)
[2019-06-01] MEDS: Furosemide 100 MG/10 ML Vial IV (08:50)
[2019-06-01] MEDS: Enoxaparin 30 MG/0.3 ML Syringe SC (08:51)
[2019-06-01 14:35] VITALS: BP 113/57; PULSE 54; RESP 18; TEMP 36.8; O2SAT 100
[2019-06-01 14:40] VITALS: O2SAT 100
--- NOTE | 2019-06-01 16:15 | PCM.PN.REN ---
Subjective: No nausea No vomiting Breathing is stable No nausea No vomiting - Physical Exam General: Alert, Cooperative HEENT: Atraumatic Oral: Moist Mucosa Neck: Supple, No JVD Lungs: Clear to auscultation, Normal air movement, No rhonchi Cardiovascular: Regular rate, Regular Rhythm, Normal S1, Normal S2 Abdomen: Bowel Sounds Present, Soft, Non Tender, Non-Distended Extremities: No clubbing, No cyanosis Skin: No breakdown Musculoskeletal: No Tenderness to Palpation of Joints or Extremities Lymphatic: No Cervical, Supraclavicular, or Inguinal Adenopathy Neurological: Cranial nerves II-XII grossly intact, Neuro grossly intact Psych/Mental Status: Normal Affect Vital Signs Temp Pulse Resp BP Pulse Ox 98.3 F 54 L 18 113/57 L 100 06/01/19 14:35 06/01/19 14:35 06/01/19 14:35 06/01/19 14:35 06/01/19 14:40 Oxygen Delivery Method Room Air Weight: 94.1 kg Body Mass Index (BMI) 35.6 Finger Stick Blood Glucose 127 Intake and Output for Last 24 Hours 05/30/19 05/31/19 06/01/19 23:59 23:59 23:59 Intake Total 150 / 984 3264 / 4314 2083 / 2083 Output Total 250 / 250 150 / 350 350 / 350 Balance -100 / 734 3114 / 3964 1733 / 1733 Laboratory Tests Past 24 Hrs 06/01/19 06/01/19 06/01/19 00:10 00:10 07:07 WBC 11.2 H RBC 3.97 L Hgb 11.5 L Hct 34.2 L MCV 86.1 MCH 29.0 MCHC 33.6 RDW 13.4 RDW Differential 41.4 Plt Count 201 MPV 10.0 Immature Gran % (Auto) 0.400 Neut % (Auto) 92.8 H Lymph % (Auto) 4.6 L [place] % (Auto) 2.1 Eos % (Auto) 0.0 Baso % (Auto) 0.1 Absolute Neuts (auto) 10.4 H Absolute Lymphs (auto) 0.52 L Total Counted Not Reportable Differential Comment SCANNED Eos Smear Total Cells Pending Sodium Potassium Chloride Carbon Dioxide Anion Gap BUN Creatinine Estim Creat Clear Calc Est GFR (MDRD) Af Amer Est GFR (MDRD) Non-Af BUN/Creatinine Ratio Glucose Calcium Magnesium Urine Color Yellow Urine Clarity Clear Urine pH 5.0 Ur Specific [place] 1.020 Urine Protein 30 H Urine Glucose (UA) 100 H Urine Ketones Negative Urine Occult Blood 10 H Urine Nitrite Negative Urine Bilirubin Negative Urine Urobilinogen Normal Ur Leukocyte Esterase 500 H Urine RBC 0 SEEN Urine WBC 10-25 SEEN Ur Squamous Epith Cells 0-5 SEEN Urine Bacteria 1+ Urine Mucus 0 SEEN 06/01/19 07:07 WBC RBC Hgb Hct MCV MCH MCHC RDW RDW Differential Plt Count MPV Immature Gran % (Auto) Neut % (Auto) Lymph % (Auto) [place] % (Auto) Eos % (Auto) Baso % (Auto) Absolute Neuts (auto) Absolute Lymphs (auto) Total Counted Differential Comment Eos Smear Total Cells Sodium 133 L Potassium 5.2 H Chloride 109 H Carbon Dioxide 16.0 L Anion Gap 8 BUN 72 H Creatinine 5.32 H Estim Creat Clear Calc 8.50 Est GFR (MDRD) Af Amer 10 L Est GFR (MDRD) Non-Af 9 L BUN/Creatinine Ratio 13.5 Glucose 172 H Calcium 8.3 L Magnesium 2.0 Urine Color Urine Clarity Urine pH Ur Specific [place] Urine Protein Urine Glucose (UA) Urine Ketones Urine Occult Blood Urine Nitrite Urine Bilirubin Urine Urobilinogen Ur Leukocyte Esterase Urine RBC Urine WBC Ur Squamous Epith Cells Urine Bacteria Urine Mucus Medical Necessity - Tobacco Use Smoking Status: Never smoker Tobacco Use: Non-smoker Assessment/Plan All Active Problems (Last Reviewed 05/06/19 @ 09:43 by Ba Montana DO) Acute paranoia (Acute) Olecranon fracture (Acute) 1- DARA on CKD stage 3. baseline Cr seems around 1.4-1.7 mg/d Cr continues to worsen despite IVF. DDX AIN vs ATN UA showed leukocytosis with large LSE Will d/c IVF and give one dose of lasix continue holding lisinopril continue methylprednisolone No need for RESIDENTIAL SALES CONSULTANT Check renal function in am if kidney function continues to worsens, she will need to have kidney Bx 2- hyperkalemia: will give one dose of lasix 3-Hyponatremia from DARA. mild 133. Should improve if UOP increases with lasix 4- HTN: BP is well controlled. continue holding ACEI 5- Skin rash: On methylprednisolone IV Renal team will continue to follow
[2019-06-01 20:00] VITALS: BP 126/55; PULSE 60; RESP 18; TEMP 36.8; O2SAT 94
[2019-06-02 02:00] VITALS: BP 116/67; PULSE 72; RESP 18; TEMP 36.8; O2SAT 95
[2019-06-02] MEDS: MethylPREDNISolone 125 MG/2 ML Vial 60 MG IV ×2 (05:16→14:48)
[2019-06-02] MEDS: Levothyroxine 100 MCG Tablet PO (05:17)
[2019-06-02] MEDS: 0.9% NaCl Peripheral Flush Adult/Peds IV ×2 (05:23→20:56)
[2019-06-02 06:36] LABS: Absolute Lymphocyte Count 0.51 X10^3/ul (0.83-4.51); Absolute Neutrophil Count 7.4 X10^3/uL (2.0-7.7); Hematocrit 34.1 % (37-47); Hemoglobin 11.5 g/dl (12.0-15.0); Lymphocyte # 0.51 X10^3/ul (4.0); Lymphocyte % 6.2 % (19-41); Mean Corp Hgb Conc 33.7 g/gl (32-36); Mean Corpuscular Hgb 28.8 pg (27.0-32.0); Mean Corpuscular Volume 85.5 fL (81-99); Mean Platelet Vol. 9.2 fl (6.2-12.0); Monocyte% 2.4 % (0-10); Neutrophil # 7.43 X10^3/uL (2.7-7.7); Neutrophil % 90.3 % (47-70); Platelet Count 256 K/mm3 (150-450); RBC Distribution Width CV 13.8 % (11.6-14.6); RBC Distribution Width SD 43.4 fl (35.1-43.9); Red Blood Count 3.99 M/mm3 (4.2-5.4); White Blood Count 8.2 K/mm3 (4.4-11.0)
[2019-06-02 06:38] LABS: Anion Gap 14 (5-15); BUN 87 mg/dL (7-18); BUN/Creat Ratio 14.7 RATIO (10-20); Calcium,Total 8.4 mg/dL (8.5-10.1); Chloride 107 mmol/L (98-107); Creatinine, Serum 5.91 mg/dL (0.55-1.02); EST Glomerular Filtration Rate 8 mL/min (>60); Est Glom Filt Rate - Afr Amer 9 mL/min (>60); Estimated Creatinine Clearance 7.65 ml/min; Glucose 196 mg/dL (74-106); Sodium Level 137 mmol/L (136-145)
[2019-06-02 06:53] LABS: Differential Indicated SCAN CRITERIA MET; POSITIVE COUNT NO; POSITIVE DIFFERENTIAL YES; POSITIVE MORPHOLOGY NO
[2019-06-02 07:05] LABS: Differential Comment SCANNED
[2019-06-02 09:53] VITALS: BP 134/60; PULSE 90; RESP 18; TEMP 36.6; O2SAT 94
[2019-06-02] MEDS: Enoxaparin 30 MG/0.3 ML Syringe SC (10:16)
--- NOTE | 2019-06-02 10:30 | CASEMGMT ---
Addendum entered by Lexis Lee 06/02/19 15:39: SARITHA KEITH attempted to call at this time, but no answer. RN CM to room and is in patient's room. states that he would like patient to go to [facility] short term for therapy. SARITHA KEITH updated MANUELITO Castorena. Original Note: SARITHA KEITH Face to Face with patient for initial transition planning/care coordination assessment. SARITHA KEITH introduced self and role at [facility]. Patient lying in bed, confused, friend, cousin, and uncle at bedside. Patient not able to participate in assessment, family at bedside able to answer some question. Care providers, pharmacy, and demographics verified. Per family friend, was thinking about patient going to [facility] at discharge. Per friend family, would be available after lunch to talk about discharge plans. SARITHA KEITH will attempt to call at later time. MANUELITO Castorena updated regarding potential discharge to SNF Disposition Plan: TBD Lexis MORELAND, RN, CM
--- NOTE | 2019-06-02 11:15 | PCM.PN.REN ---
Subjective: Confused as per family members Urine output remains low patient - Physical Exam General: Alert HEENT: Atraumatic, PERRLA, EOMI, Normocephalic Neck: Supple, No JVD, Negative Carotid Bruits Lungs: Clear to auscultation, Normal air movement Cardiovascular: Regular rate, No murmurs Abdomen: Bowel Sounds Present, Soft, Non Tender Extremities: No edema, Capillary Refill Less than 3 Seconds Skin: No rashes, No breakdown Musculoskeletal: No Tenderness to Palpation of Joints or Extremities Neurological: Cranial nerves II-XII grossly intact Vital Signs Temp Pulse Resp BP Pulse Ox 97.8 F 90 18 134/60 H 94 06/02/19 09:53 06/02/19 09:53 06/02/19 09:53 06/02/19 09:53 06/02/19 09:53 Oxygen Delivery Method Room Air Weight: 94.1 kg Body Mass Index (BMI) 35.6 Finger Stick Blood Glucose 127 Intake and Output for Last 24 Hours 05/31/19 06/01/19 06/02/19 23:59 23:59 23:59 Intake Total 3264 / 4314 2603 / 2803 350 / 350 Output Total 150 / 350 350 / 350 150 / 150 Balance 3114 / 3964 2253 / 2453 200 / 200 Laboratory Tests Past 24 Hrs 05/31/19 06/02/19 06/02/19 06:19 05:51 05:51 WBC 8.2 RBC 3.99 L Hgb 11.5 L Hct 34.1 L MCV 85.5 MCH 28.8 MCHC 33.7 RDW 13.8 RDW Differential 43.4 Plt Count 256 MPV 9.2 Immature Gran % (Auto) 1.100 H Neut % (Auto) 90.3 H Lymph % (Auto) 6.2 L [place] % (Auto) 2.4 Eos % (Auto) 0.0 Baso % (Auto) 0.0 Absolute Neuts (auto) 7.4 Absolute Lymphs (auto) 0.51 L Total Counted Not Reportable Differential Comment SCANNED Sodium 137 Potassium 5.0 Chloride 107 Carbon Dioxide 16.0 L Anion Gap 14 BUN 87 H Creatinine 5.91 H Estim Creat Clear Calc 7.65 Est GFR (MDRD) Af Amer 9 L Est GFR (MDRD) Non-Af 8 L BUN/Creatinine Ratio 14.7 Glucose 196 H Calcium 8.4 L POC Glucose 182 H Medical Necessity - Tobacco Use Smoking Status: Never smoker Tobacco Use: Non-smoker Assessment/Plan All Active Problems (Last Reviewed 05/06/19 @ 09:43 by Ba Montana, DO) Acute paranoia (Acute) Olecranon fracture (Acute) Acute on chronic renal failure. Has CKD stage III with baseline creatinine around 1.8-2.0. Sustained acute renal failure within the last 3 months. Last baseline creatinine was in February. Remains anuric creatinine continues to get worse., Today it is up to 5.9. Urine analysis shows large amount of leukocytes Urine eosinophils are pending Reviewed records from Dr. Montana's office. She was started on olanzapine in last week of April. She had barely received few doses now discontinued. Unclear if acute renal failure is interstitial nephritis but it is quite possible medically speaking, due to dense renal failure She will likely need renal replacement therapy and kidney biopsy However there is history of Alzheimer's dementia as per records. is not bedside today. I tried calling him at home phone and there was no response. Will discuss with family members about further treatment options. No acute indications for renal replacement therapy today Patient is already on empiric steroids skin rash has improved. Renal failure did not improve yet.
--- NOTE | 2019-06-02 11:19 | NURSING ---
wound photo: right lower leg
--- NOTE | 2019-06-02 11:20 | NURSING ---
wound photo: left lower leg
[2019-06-02 14:21] VITALS: BP 126/67; PULSE 65; RESP 18; TEMP 37.1; O2SAT 97
--- NOTE | 2019-06-02 15:15 | NURSING ---
Paged Dr. Ocampo to give [facility] cell number of [phone].
--- NOTE | 2019-06-02 15:25 | CHAPLAIN ---
Type of Pastoral Visit _x__ Initial Visit ___ Follow-up Visit ___ On-call Visit ___ General Patient Visit ___ Spiritual Assessment ___ Family Conference ___ Bereavement ___ Rapid Response ___ Code Blue ___ Other (describe below) Pastoral Care Referral From _x__ Patient _x__ Family ___ Nurse ___ Physician ___ Digital Design Engineer ___ Wireless Store Manager ___ Other (describe below) Sacrament/Intervention _x__ Active listening ___ Anointing ___ Voodoo ___ Bereavement ___ Communion ___ Jessica exploration ___ ___ Life review _x__ Prayer ___ Reconciliation ___ Sacrament of Sick _x__ Supportive presence ___ Wedding ___ Other (describe below) Pastoral Comments patient talks and some things are incongruent with her situation in hospital; other statements are plausible; spouse is with pt in room; spouse says that couple had previously attended [facility] quaker in [place] but no longer do; spouse whispers to engineer that pt is confused; pt states that she is better now
--- NOTE | 2019-06-02 16:07 | CASEMGMT ---
Social Work Note SW received referral from RN SAGAR Lee that pt's would like referral sent to [facility]. SW faxed referral. SW ordered PT/OT, updated physician on PT/OT being ordered. MANUELITO will follow up on referral tomorrow and will fax PT/OT tomorrow. Plan: [facility] pending acceptance Lexis Castorena BUSINESS MANAGEMENT MANAGER, MARKETING SUPPORT COORDINATOR
[2019-06-02] MEDS: Ondansetron 4 MG/2 ML Vial IV (16:25)
--- NOTE | 2019-06-02 18:55 | PCM.PROGNOTE ---
Subjective: Patient was seen and examined today, she remains confused, she is an uric and her creatinine today is 5.91. I talked with nephrology about her care today, she is scheduled to undergo a renal biopsy tomorrow, the cause of her renal failure is unknown at this time. I had a brief discussion with the patient's and daughter regarding whether they wish her to undergo dialysis if necessary, daughter stated that she would like to have a conversation with her father concerning this and could not make up her mind. - Physical Exam General: Alert, Cooperative, No apparent distress, Well developed, Confused HEENT: Atraumatic, PERRLA, EOMI, Normocephalic Oral: Moist Mucosa Neck: Supple, No Nuchal Rigidity, Trachea Midline, Thyroid Normal Size and Texture Lungs: Clear to auscultation, Normal air movement, No rhonchi, No wheeze, No rales, Diminished, Rales Cardiovascular: Regular rate, Regular Rhythm, Normal S1, Normal S2, No murmurs, No Ectopic Activity, PMI Normal, No rub noted, No Gallop Abdomen: Bowel Sounds Present, Soft, Non Tender, Non-Distended, No hernias noted Extremities: No clubbing, No cyanosis, Capillary Refill Less than 3 Seconds Skin: No rashes, No breakdown Musculoskeletal: No Tenderness to Palpation of Joints or Extremities Neurological: Cranial nerves II-XII grossly intact, Neuro grossly intact, Sensory exam intact to light touch and pain Psych/Mental Status: - - Patient is alert but confused Vital Signs Temp Pulse Resp BP Pulse Ox 98.8 F 65 18 126/67 H 97 06/02/19 14:21 06/02/19 14:21 06/02/19 14:21 06/02/19 14:21 06/02/19 14:21 Oxygen Delivery Method Room Air Weight: 94.1 kg Body Mass Index (BMI) 35.6 Finger Stick Blood Glucose 127 Intake and Output for Last 24 Hours 05/31/19 06/01/19 06/02/19 23:59 23:59 23:59 Intake Total 3264 / 4314 2603 / 2803 950 / 950 Output Total 150 / 350 350 / 350 250 / 250 Balance 3114 / 3964 2253 / 2453 700 / 700 Laboratory Tests Past 24 Hrs 06/02/19 06/02/19 05:51 05:51 WBC 8.2 RBC 3.99 L Hgb 11.5 L Hct 34.1 L MCV 85.5 MCH 28.8 MCHC 33.7 RDW 13.8 RDW Differential 43.4 Plt Count 256 MPV 9.2 Immature Gran % (Auto) 1.100 H Neut % (Auto) 90.3 H Lymph % (Auto) 6.2 L [place] % (Auto) 2.4 Eos % (Auto) 0.0 Baso % (Auto) 0.0 Absolute Neuts (auto) 7.4 Absolute Lymphs (auto) 0.51 L Total Counted Not Reportable Differential Comment SCANNED Sodium 137 Potassium 5.0 Chloride 107 Carbon Dioxide 16.0 L Anion Gap 14 BUN 87 H Creatinine 5.91 H Estim Creat Clear Calc 7.65 Est GFR (MDRD) Af Amer 9 L Est GFR (MDRD) Non-Af 8 L BUN/Creatinine Ratio 14.7 Glucose 196 H Calcium 8.4 L Medical Necessity - Tobacco Use Smoking Status: Never smoker Tobacco Use: Non-smoker Assessment/Plan All Active Problems (Last Reviewed 05/06/19 @ 09:43 by Ba Montana DO) Acute paranoia (Acute) Olecranon fracture (Acute) #1 acute renal failure on a backdrop of chronic kidney disease stage IV-etiology unclear at this point, patient will undergo renal biopsy tomorrow #2 dementia-supportive care #3 paroxysmal atrial fibrillation #4 hypothyroidism #5 type 2 diabetes-patient's blood sugars will be monitored #6 hypothyroidism #7 hypertension #8 stasis dermatitis changes to both lower extremities #9 rash-etiology unclear at this time, patient is on IV corticosteroids Code Visit Inpatient E&M: 18375 Subs Hosp L2
[2019-06-02 19:52] VITALS: BP 114/60; PULSE 56; RESP 16; TEMP 37; O2SAT 92
[2019-06-02] MEDS: Insulin Lispro 100 UNIT/ML INSULN.PEN SC (20:55)
[2019-06-02 21:01] LABS: Bedside Glucose 200 mg/dL (70-110)
[2019-06-03] VITALS (11 sets, daily range): BP systolic 127–157; BP diastolic 54–95; PULSE 53–98; RESP 16–18; TEMP 36.3–36.7; O2SAT 95–100; BMI 35.4
[2019-06-03] MEDS: Ondansetron 4 MG/2 ML Vial IV ×3 (00:37→17:49)
[2019-06-03] MEDS: 0.9% NaCl Peripheral Flush Adult/Peds IV ×5 (00:37→21:07)
[2019-06-03] MEDS: Levothyroxine 100 MCG Tablet PO (05:09)
[2019-06-03] MEDS: Insulin Lispro 100 UNIT/ML INSULN.PEN SC ×3 (06:48→21:07)
[2019-06-03 06:50] LABS: Absolute Lymphocyte Count 0.45 X10^3/ul (0.83-4.51); Absolute Neutrophil Count 8.7 X10^3/uL (2.0-7.7); Basophil# 0.01 X10^3/uL; Basophil% 0.1 % (0-1); Hematocrit 34.6 % (37-47); Hemoglobin 11.6 g/dl (12.0-15.0); Lymphocyte # 0.45 X10^3/ul (4.0); Lymphocyte % 4.6 % (19-41); Mean Corp Hgb Conc 33.5 g/gl (32-36); Mean Corpuscular Hgb 28.5 pg (27.0-32.0); Mean Platelet Vol. 9.1 fl (6.2-12.0); Monocyte# 0.51 X10^3/uL; Monocyte% 5.2 % (0-10); Neutrophil # 8.72 X10^3/uL (2.7-7.7); Neutrophil % 89.2 % (47-70); Platelet Count 255 K/mm3 (150-450); RBC Distribution Width SD 43.7 fl (35.1-43.9); Red Blood Count 4.07 M/mm3 (4.2-5.4); White Blood Count 9.8 K/mm3 (4.4-11.0)
[2019-06-03 06:52] LABS: Anion Gap 14 (5-15); BUN 101 mg/dL (7-18); BUN/Creat Ratio 16.5 RATIO (10-20); Calcium,Total 8.4 mg/dL (8.5-10.1); Chloride 106 mmol/L (98-107); Creatinine, Serum 6.12 mg/dL (0.55-1.02); EST Glomerular Filtration Rate 7 mL/min (>60); Est Glom Filt Rate - Afr Amer 9 mL/min (>60); Estimated Creatinine Clearance 7.39 ml/min; Glucose 189 mg/dL (74-106); Potassium 5.2 mmol/L (3.5-5.1); Sodium Level 137 mmol/L (136-145)
[2019-06-03 06:55] LABS: Bedside Glucose 160 mg/dL (70-110)
[2019-06-03 07:00] LABS: Bedside Glucose 188 mg/dL (70-110)
[2019-06-03 07:15] LABS: Differential Indicated SCAN CRITERIA MET; POSITIVE COUNT NO; POSITIVE DIFFERENTIAL YES; POSITIVE MORPHOLOGY NO
[2019-06-03 07:16] LABS: Differential Comment SCANNED
--- NOTE | 2019-06-03 09:42 | CASEMGMT ---
Addendum entered by Lexis Castorena 06/03/19 10:47: MANUELITO spoke with Cuca at [facility] and updated her that pt is not medically cleared for discharge yet due to failing kidneys. Cuca states [facility] does offer peritoneal dialysis at facility. Original Note: Social Work Note SW received message from Cuca at [facility] stating they are able to accept pt. MANUELITO spoke with physician. Per Physician pt's kidneys are failing and pt's family will have to decide if they want dialysis for pt. Pt not medically cleared for discharge today. MANUELITO placed a call to pt's daughter Amanda who is listed as HCPOA. Amanda confirms she would like pt to go to [facility] at discharge. MANUELITO informed Carly that at this time, [facility] is able to accept pt but that may change if pt goes on dialysis. Carly states understanding. MANUELITO placed a call to Cuca at [facility]. Per Kary, Cuca is in morning meeting and will give this worker a call back when she is available. Plan: [facility] SNF once medically cleared pending if pt will need dialysis Lexis Castorena [employer] DEAN, MANAGER CHILD
[2019-06-03 11:05] LABS: Bedside Glucose 169 mg/dL (70-110)
--- NOTE | 2019-06-03 11:16 | PN.RENAL_ITS ---
Subjective: no new events - Physical Exam General: Alert HEENT: Atraumatic, PERRLA, EOMI, Normocephalic Neck: Supple, No JVD, Negative Carotid Bruits Lungs: Clear to auscultation, Normal air movement Cardiovascular: Regular rate, No murmurs Abdomen: Bowel Sounds Present, Soft, Non Tender Extremities: No edema, Capillary Refill Less than 3 Seconds Skin: No rashes, No breakdown Musculoskeletal: No Tenderness to Palpation of Joints or Extremities Neurological: Cranial nerves II-XII grossly intact Psych/Mental Status: Normal Affect, Appropriate Vital Signs Temp Pulse Resp BP Pulse Ox 97.6 F L 82 16 127/56 H 96 06/03/19 10:00 06/03/19 10:00 06/03/19 10:00 06/03/19 10:00 06/03/19 10:00 Oxygen Delivery Method Room Air Weight: 93.7 kg Body Mass Index (BMI) 35.6 Finger Stick Blood Glucose 127 Intake and Output for Last 24 Hours 06/01/19 06/02/19 06/03/19 23:59 23:59 23:59 Intake Total 2603 / 2803 950 / 950 120 / 120 Output Total 350 / 350 350 / 350 400 / 400 Balance 2253 / 2453 600 / 600 -280 / -280 Laboratory Tests Past 24 Hrs 06/03/19 06/03/19 06:12 06:12 WBC 9.8 RBC 4.07 L Hgb 11.6 L Hct 34.6 L MCV 85.0 MCH 28.5 MCHC 33.5 RDW 14.0 RDW Differential 43.7 Plt Count 255 MPV 9.1 Immature Gran % (Auto) 0.900 Neut % (Auto) 89.2 H Lymph % (Auto) 4.6 L [place] % (Auto) 5.2 Eos % (Auto) 0.0 Baso % (Auto) 0.1 Absolute Neuts (auto) 8.7 H Absolute Lymphs (auto) 0.45 L Total Counted Not Reportable Differential Comment SCANNED Sodium 137 Potassium 5.2 H Chloride 106 Carbon Dioxide 17.0 L Anion Gap 14 BUN 101 H* Creatinine 6.12 H Estim Creat Clear Calc 7.39 Est GFR (MDRD) Af Amer 9 L Est GFR (MDRD) Non-Af 7 L BUN/Creatinine Ratio 16.5 Glucose 189 H Calcium 8.4 L POC Glucose 06/03/19 06/03/19 06/03/19 11:02 06:53 06:47 POC Glucose 169 H 188 H 160 H 06/02/19 20:54 POC Glucose 200 H Medical Necessity - Tobacco Use Smoking Status: Never smoker Tobacco Use: Non-smoker Assessment/Plan All Active Problems (Last Reviewed 05/06/19 @ 09:43 by Ba Montana, DO) Acute paranoia (Acute) Olecranon fracture (Acute) Acute on chronic renal failure. Has CKD stage III with baseline creatinine around 1.8-2.0. Sustained acute renal failure within the last 3 months. Last baseline creatinine was in February. Remains anuric creatinine continues to get worse., Today it is up to 5.9. Urine analysis shows large amount of leukocytes Urine eosinophils are pending Reviewed records from Dr. Montana's office. She was started on olanzapine in last week of April. She had barely received few doses now discontinued. Unclear if acute renal failure is interstitial nephritis but it is quite possible continue steroids d/w and family kidney biopsy ordered tunneled dialysis line to be placed Dr Silva notified
--- NOTE | 2019-06-03 13:40 | PCM.CONS.GEN ---
Problem List (1) Acute kidney injury Status: Acute Reason for Consult Date of Consultation: 06/03/19 History of Present Illness: The patient is a 69 year old F who I am being asked to see by for this patient who has chronic renal insufficiency and acute kidney injury in addition. I request has been made for placement of tunneled dialysis catheters and a written copy of my surgical consult will be available in the charting. Patient was admitted to the hospital on May 30, 2019. She had a generalized rash. Appeared confused. On her presentation her CRP was elevated at 55 and ESR was 37. Her BUN was 53 and creatinine 4.5. Today her BUN is 101 and creatinine 6.12. The patient also is scheduled to have a kidney biopsy performed that is pending. She has multiple medical problems as listed in her past medical history. The patient and her did not diet any previous history of central venous access. No history of pacemaker reports. Much of the information is provided by the patient's as the patient appears to have ongoing confusion perhaps complicating her chronic dementia. Past Medical History Past Medical History (Chronic Problems): Chronic Problems (Last Reviewed 05/06/19 @ 09:43 by Ba Montana DO) Leg edema (Chronic) Venous ulcer of right leg (Chronic) Alzheimers disease (Chronic) Morbid obesity with BMI of 50.0-59.9, adult (Chronic) Sleep apnea (Chronic) Skin ulcer (Chronic) Pneumonia (Chronic) Kidney failure (Chronic) Kidney disease (Chronic) IBS (irritable bowel syndrome) (Chronic) Hypertension (Chronic) Heart failure (Chronic) Diabetes (Chronic) Asthma (Chronic) Arthritis (Chronic) Seasonal allergies (Chronic) Leg swelling (Chronic) Hyperpigmentation of skin (Chronic) Lipodermatosclerosis (Chronic) Venous ulcer of left leg (Chronic) Venous hypertension, chronic, with ulcer (Chronic) Chronic venous insufficiency (Chronic) Morbid obesity with BMI of 50.0-59.9, adult (Chronic) Obstructive sleep apnea on CPAP (Chronic) Obesity (Chronic) Peripheral neuropathy (Chronic) Chronic kidney disease (Chronic) Hypothyroidism (Chronic) Hypercholesteremia (Chronic) Diabetes mellitus (Chronic) CHF (congestive heart failure) (Chronic) Postphlebetic syndrome with ulcer (Chronic) History of pulmonary embolism (Chronic) History of DVT (deep vein thrombosis) (Chronic) Asthma (Chronic) Medical History: Medical History (Last Reviewed 05/06/19 @ 09:43 by Ba Montana DO) Sleep apnea (Chronic) G47.30 Skin ulcer (Chronic) L98.499 Pneumonia (Chronic) J18.9 Kidney failure (Chronic) N19 Kidney disease (Chronic) N28.9 IBS (irritable bowel syndrome) (Chronic) K58.9 Hypertension (Chronic) I10 Heart failure (Chronic) I50.9 Diabetes (Chronic) E11.9 Asthma (Chronic) J45.909 Arthritis (Chronic) M19.90 Seasonal allergies (Chronic) J30.2 Allergies exenatide [From [place]] Allergy (Intermediate, Verified 05/30/19 12:08) Unknown Sulfa (Sulfonamide Antibiotics) Allergy (Intermediate, Verified 05/30/19 12:08) Unknown Tetracyclines Allergy (Intermediate, Verified 05/30/19 12:08) Unknown Home Medications: Ambulatory Orders Medication Instructions Recorded Cholecalciferol (VIT D3) [Vitamin 1,000 unit PO DAILY 01/05/15 D3] albuterol sulfate HFA 90 2 puff INHALATION Q6H PRN #8.5 g 03/21/19 mcg/actuation aerosol inhaler amlodipine 10 mg tablet 10 mg PO DAILY #90 tab 04/24/19 lisinopril 10 mg tablet 10 mg PO DAILY #90 tab 04/24/19 diltiazem CD 180 mg 180 mg PO DAILY 05/06/19 capsule,extended release 24 hr Acetaminophen [Tylenol] 325 mg PO Q6H PRN PRN 05/30/19 Levothyroxine [Synthroid] 100 mcg PO DAILY 05/30/19 Surgical History: Surgical History (Last Reviewed 05/06/19 @ 09:43 by Ba Montana DO) History of elbow surgery Z98.890 02/2019, due to fracture Surgical History: - - The patient underwent open reduction and internal fixation of a right elbow fracture on March 24, 2019. She has also undergone a vein stripping procedure in the past, though the specific nature of the procedure is not known. She is a G2, P2 Ab0 Psychiatric History: No pertinent psych hx FIELD CARE MANAGER History: No pertinent FIELD CARE MANAGER history Lives: Spouse/ Significant Other Smoking Status: Never smoker Tobacco Use: Non-smoker - *Family History Maternal Family History: Family History (Last Reviewed 05/06/19 @ 09:43 by Ba Montana DO) Father Heart disease Mother Hypertension History Items: - - The patient's father at age of 74 with a history of myocardial infarction. Patient's mother at age of 82 with a history of heart disease. Review of Systems Constitutional: Reports: Anorexia HEENT: Denies: Difficulty Swallowing Cardiovascular: Denies: Chest Pain Respiratory: Reports: Shortness of Breath Gastrointestinal: Denies: Abdominal Pain Skin: Reports: - - Lower extremity swelling Patient Problems: Active and Suspected Problems (Last Reviewed 05/06/19 @ 09:43 by Ba Montana DO) Acute kidney injury (Acute) - Physical Exam General: Alert, Cooperative, No apparent distress HEENT: Atraumatic Oral: Moist Mucosa Neck: Supple, Negative Carotid Bruits Lungs: - - Clear in the very apices though with some scattered wheezes throughout Cardiovascular: Regular rate, Regular Rhythm Extremities: - - Viet wraps bilateral lower extremities with significant swelling noted Vital Signs Temp Pulse Resp BP Pulse Ox 97.6 F L 82 16 127/56 H 96 06/03/19 10:00 06/03/19 10:00 06/03/19 10:00 06/03/19 10:00 06/03/19 10:00 Oxygen Delivery Method Room Air Weight: 206 lb 9.17 oz Body Mass Index (BMI) 35.6 Finger Stick Blood Glucose 127 Intake and Output for Last 24 Hours 06/01/19 06/02/19 06/03/19 23:59 23:59 23:59 Intake Total 2603 / 2803 950 / 950 120 / 120 Output Total 350 / 350 350 / 350 400 / 400 Balance 2253 / 2453 600 / 600 -280 / -280 Laboratory Tests Past 24 Hrs 06/03/19 06/03/19 06:12 06:12 WBC 9.8 RBC 4.07 L Hgb 11.6 L Hct 34.6 L MCV 85.0 MCH 28.5 MCHC 33.5 RDW 14.0 RDW Differential 43.7 Plt Count 255 MPV 9.1 Immature Gran % (Auto) 0.900 Neut % (Auto) 89.2 H Lymph % (Auto) 4.6 L [place] % (Auto) 5.2 Eos % (Auto) 0.0 Baso % (Auto) 0.1 Absolute Neuts (auto) 8.7 H Absolute Lymphs (auto) 0.45 L Total Counted Not Reportable Differential Comment SCANNED Sodium 137 Potassium 5.2 H Chloride 106 Carbon Dioxide 17.0 L Anion Gap 14 BUN 101 H* Creatinine 6.12 H Estim Creat Clear Calc 7.39 Est GFR (MDRD) Af Amer 9 L Est GFR (MDRD) Non-Af 7 L BUN/Creatinine Ratio 16.5 Glucose 189 H Calcium 8.4 L POC Glucose 06/03/19 06/03/19 06/03/19 11:02 06:53 06:47 POC Glucose 169 H 188 H 160 H 06/02/19 20:54 POC Glucose 200 H Assessment/Plan All Active Problems (Last Reviewed 05/06/19 @ 09:43 by Ba Montana, DO) Acute kidney injury (Acute) Acute paranoia (Acute) Olecranon fracture (Acute) I recommend placement of right internal jugular tunneled hemodialysis catheter in in great detail I discussed the technique, benefits, risks, alternatives. She has had an opportunity to ask and have questions answered and as noted the is providing decision-making capacity at this time. We will schedule and proceed as indicated. Anticipate placement later today. I appreciate the opportunity of assisting with her surgical care. Gage Silva M.D., F.A.C.S.
[2019-06-03] MEDS: Heparin 10,000 UNITS/10 ML Vial 10000 UNITS (15:52)
[2019-06-03] MEDS: Cefazolin 2 GM in 0.9% Normal Saline 100 ML IV (16:14)
[2019-06-03] MEDS: Bupivacaine 0.5% PF 10 ML VIAL (16:40)
--- NOTE | 2019-06-03 16:46 | PCM.OPRPT ---
Problem List (1) Acute kidney injury Status: Acute Report of Operation Date of Procedure: 06/03/19 Pre-Operative Diagnosis: Acute on chronic renal insufficiency Post-Operative Diagnosis: Same Surgery/Procedure Performed:: Right internal jugular pre-curved 19 cm palindrome hemodialysis catheter placement. Lot #[id number]. Expiry date March 27, 2023. Ref;[id number] Description of Surgical Findings:: Timeout and informed consent was obtained. 69-year-old female was taken to the operating placed on the table underwent monitored anesthesia care local anesthetic. Ancef 2 g were given intravenously. The right neck was sterilely prepped and draped. Under ultrasound guidance 1% lidocaine mixed 50-50 with 0.25% Marcaine was used as local anesthetic. Throughout the procedure a total of 30 cc was used. Ultrasound was used to identify the right internal jugular vein micropuncture needle inserted my puncture wire inserted. Local was instilled down upon the chest wall. A exit site was selected. The 19 cm peak curve palindrome catheter was tunneled from the chest at the neck site. Micropuncture sheath was placed over the wire. 035 J-wire was inserted. Fluoroscopy demonstrated good positioning. Serial dilatation of the tract was performed. The sheath dilator was placed over the wire. The wire and dilator were removed. The catheter was advanced through the sheath. The sheath was split. The cath was nicely positioned at the SVC atrial junction with a good curve position. The catheter was secured in to the skin with interrupted 3-0 nylon. The counterincision of the neck was closed with interrupted 5-0 Vicryl subdermal stitch. Steri-Strip Telfa OpSite was applied to that incision and a silver impregnated dressing and OpSite dressing was applied to the exit site. Sponge and instrument and needle counts were reported to the surgeon be correct. Blood loss was minimal. Specimens none. Drains none. The patient was taken to the recovery area in satisfactory condition. Stat portable chest x-ray is pending. Gage Silva M.D., F.A.C.S. Type of Anesthesia:: Local MAC Anesthesiologist: Erika Hightower
--- NOTE | 2019-06-03 17:20 | RAD_ITS ---
STUDY: X-RAY CHEST REASON FOR EXAM: Female, 69 years old. Postop hemodialysis center TECHNIQUE: Single AP portable view of the chest. COMPARISON: March 14, 2019 chest x-ray FINDINGS: The right-sided central line and the tip is in atrial caval junction. There is mild interstitial prominence in the lung apices. The lungs are clear and expanded. There is no demonstrated pleural abnormality. There is mild cardiac enlargement. Normal mediastinum and carlos. Normal visualized pulmonary arteries. There is atherosclerotic calcification of the aortic arch with tortuosity. Normal visualized thoracic spine. Normal visualized ribs, clavicles, and shoulders. There is no demonstrated abnormality of the visualized soft tissue structures of the upper abdomen. RAD/CXR for Line Placement IMPRESSION: Right side catheter tip in atrial caval junction. Minimal upper lobe atelectasis. Electronically Signed: Silvana Wade MD at 17:36 EDT Tel , Service support ,
--- NOTE | 2019-06-03 20:07 | PN_ITS ---
Patient Problems: Active and Suspected Problems (Last Reviewed 05/06/19 @ 09:43 by Ba Montana DO) Acute kidney injury (Acute) Subjective: Patient was seen and examined today, I talked with her who is in the room today he states that he had a conversation with his daughter and they wish the patient to have dialysis if necessary. A temporary dialysis catheter was placed today by general surgery. Patient was not able to have her kidney biopsy performed today due to scheduling. Patient's creatinine has risen today, it appears that tomorrow she will need to undergo dialysis. I talked briefly with nephrology today about her care - Physical Exam General: Alert, Cooperative, No apparent distress, Well developed, Confused HEENT: Atraumatic, PERRLA, EOMI, Normocephalic Oral: Moist Mucosa Neck: Supple, Trachea Midline, Thyroid Normal Size and Texture Lungs: Clear to auscultation, Normal air movement, No rhonchi, No wheeze, No rales Cardiovascular: Regular rate, Regular Rhythm, Normal S1, Normal S2, No murmurs, No Ectopic Activity Abdomen: Bowel Sounds Present, Soft, Non Tender, Non-Distended Extremities: Capillary Refill Less than 3 Seconds Skin: Rash Present - stasis skin changes are noted over the lower legs, there are areas of rash over the patient's left upper chest area and back area, these appear to be improving over previous exams, there is some dry skin over these areas which is flaking off, - - Scattered stasis ulcerations are noted over the lower legs Musculoskeletal: No Tenderness to Palpation of Joints or Extremities Neurological: Cranial nerves II-XII grossly intact, Neuro grossly intact, Senso ry exam intact to light touch and pain Psych/Mental Status: - - Patient is alert but confused, she does follow commands Vital Signs Temp Pulse Resp BP Pulse Ox 98.0 F 98 16 148/54 H 96 06/03/19 17:50 06/03/19 17:50 06/03/19 17:50 06/03/19 17:50 06/03/19 17:50 Oxygen Delivery Method Room Air Weight: 93.7 kg Body Mass Index (BMI) 35.4 Finger Stick Blood Glucose 127 Intake and Output for Last 24 Hours 06/01/19 06/02/19 06/03/19 23:59 23:59 23:59 Intake Total 2603 / 2803 950 / 950 220 / 220 Output Total 350 / 350 350 / 350 400 / 400 Balance 2253 / 2453 600 / 600 -180 / -180 Laboratory Tests Past 24 Hrs 06/03/19 06/03/19 06:12 06:12 WBC 9.8 RBC 4.07 L Hgb 11.6 L Hct 34.6 L MCV 85.0 MCH 28.5 MCHC 33.5 RDW 14.0 RDW Differential 43.7 Plt Count 255 MPV 9.1 Immature Gran % (Auto) 0.900 Neut % (Auto) 89.2 H Lymph % (Auto) 4.6 L [place] % (Auto) 5.2 Eos % (Auto) 0.0 Baso % (Auto) 0.1 Absolute Neuts (auto) 8.7 H Absolute Lymphs (auto) 0.45 L Total Counted Not Reportable Differential Comment SCANNED Sodium 137 Potassium 5.2 H Chloride 106 Carbon Dioxide 17.0 L Anion Gap 14 BUN 101 H* Creatinine 6.12 H Estim Creat Clear Calc 7.39 Est GFR (MDRD) Af Amer 9 L Est GFR (MDRD) Non-Af 7 L BUN/Creatinine Ratio 16.5 Glucose 189 H Calcium 8.4 L POC Glucose 06/03/19 06/03/19 06/03/19 11:02 06:53 06:47 POC Glucose 169 H 188 H 160 H 06/02/19 20:54 POC Glucose 200 H Medical Necessity - Tobacco Use Smoking Status: Never smoker Tobacco Use: Non-smoker Assessment/Plan All Active Problems (Last Reviewed 05/06/19 @ 09:43 by Ba Montana DO) Acute kidney injury (Acute) Acute paranoia (Acute) Olecranon fracture (Acute) #1 acute renal failure on a backdrop of chronic kidney disease stage IV-etiology unclear at this point, patient will undergo dialysis probably tomorrow #2 dementia-supportive care #3 paroxysmal atrial fibrillation #4 hypothyroidism #5 type 2 diabetes-patient's blood sugars will be monitored #6 hypothyroidism #7 hypertension #8 stasis dermatitis changes to both lower extremities #9 rash-etiology unclear at this time, I will stop her IV corticosteroids at this point and observe Code Visit Inpatient E&M: 12814 Subs Hosp L2
[2019-06-03] MEDS: DiphenhydrAMINE 25 MG Capsule PO (20:09)
[2019-06-03 21:21] LABS: Bedside Glucose 163 mg/dL (70-110)
[2019-06-04] VITALS (11 sets, daily range): BP systolic 116–154; BP diastolic 16–93; PULSE 53–81; RESP 15–18; TEMP 36.4–37; O2SAT 92–100
[2019-06-04] MEDS: Levothyroxine 100 MCG Tablet PO (06:09)
[2019-06-04] MEDS: Ondansetron 4 MG/2 ML Vial IV ×2 (06:09→21:07)
[2019-06-04] MEDS: Insulin Lispro 100 UNIT/ML INSULN.PEN SC ×3 (06:21→21:11)
[2019-06-04 06:25] LABS: Bedside Glucose 162 mg/dL (70-110)
[2019-06-04 06:33] LABS: International Normalized Ratio 1.1; Prothrombin Time (Protime)PT. 14.4 SECONDS (11.7-14.9)
[2019-06-04 06:34] LABS: Partial Thromboplast Time 25.6 Seconds (24.1-36.2)
[2019-06-04 08:30] LABS: Anion Gap 10 (5-15); BUN 104 mg/dL (7-18); BUN/Creat Ratio 16.6 RATIO (10-20); Calcium,Total 8.3 mg/dL (8.5-10.1); Chloride 107 mmol/L (98-107); Creatinine, Serum 6.27 mg/dL (0.55-1.02); EST Glomerular Filtration Rate 7 mL/min (>60); Est Glom Filt Rate - Afr Amer 9 mL/min (>60); Estimated Creatinine Clearance 7.21 ml/min; Glucose 171 mg/dL (74-106); Potassium 5.5 mmol/L (3.5-5.1); Sodium Level 136 mmol/L (136-145)
--- NOTE | 2019-06-04 10:00 | CT_ITS ---
PROCEDURE: CT GUIDED PERCUTANEOUS KIDNEY BIOPSY. DATE: June 04, 2019. INDICATION: Female, 69 years old. Renal failure. PHYSICIAN: Los Arevalo M.D. MEDICATIONS: 2 mg of Versed and 50 mcg of fentanyl intravenously. Conscious sedation protocol was followed. The patient was independently monitored by the department nurse. Conscious sedation was started at 10:12 AM and terminated at 10:33 AM. ACCESS SITE: Lower pole of the left kidney. NEEDLE: 18-gauge core biopsy needle SPECIMEN: 4 18-gauge cores EBL: None. COMPLICATIONS: None immediate. RADIATION DOSAGE (If Supplied By Facility): CTDIvol = ( 15 ) mGy, DLP = ( 1036 ) mGycm The risks, benefits, and alternatives to the procedure and sedation were explained to the patient. The specific risk of hemorrhage requiring further treatment or intervention was detailed and accepted. Written informed consent was obtained. The patient was placed on the CT table in the prone position. Multiple axial images were obtained from the lung base through the caudal extent of the kidneys. An appropriate entry site was identified and a lupe made on the skin. The skin overlying the [left ] posterior flank was prepped and draped in sterile fashion. 1% lidocaine was administered subcutaneously for local anesthesia. Initially, a 22 gauge needle was advanced and CT images confirmed good needle position. The 22 gauge needle was then exchanged for an 17 gauge introducer needle which was advanced. Repeat CT images confirmed good needle trajectory and tip position. The introducer needle was then advanced into the periphery of the inferior renal pole, and CT images were again obtained to confirm exact tip location. The inner stylet of the introducer needle was then removed and an 18 gauge coaxial needle was advanced thru the introducer needle and biopsy performed. A total of [4 ] passes were performed and the specimen collected was sent to Pathology for further evaluation. The needle was withdrawn. Hemostasis was achieved with manual compression and a sterile dressing was applied. Repeat CT images of the biopsy area was performed which demonstrated no gross bleeding or hematoma. The patient tolerated the procedure well without immediate complications. The patient was transported to the [floor/recovery area] in stable condition. CT/Biopsy/Inj or Needle Placement IMPRESSION: Successful CT guided percutaneous kidney biopsy. Electronically Signed: Los Arevalo, at 10:55 EDT , Service support ,
[2019-06-04] MEDS: fentaNYL 100 MCG/2 ML Ampul IV (10:12)
[2019-06-04] MEDS: Midazolam 2 MG/2 ML Syringe IV (10:14)
--- NOTE | 2019-06-04 10:34 | KI_PTH ---
PATIENT: JEAN PAUL CÁRDENAS LOC: MS3 U#:[id number] AGE/SX: 69/F ROOM: NE318 RE05/31/[address]: Dr. Ankit Walters DO : 1950 BED: 1 DIS: 06/05/2019 SPEC #: [id number] RECD: 06/04/19 10:42 STATUS: NARDA REQ #: [id number] RAVI: 06/04/19 10:[address]: Deborah Ocampo DEPT: SURGICAL PATHOLOGY RECD BY: Tevin Vincent ENTERED: 06/04/19 14:26 SP TYPE: KIDNEY BX OTHR DR: MD Dr. Ba Plascencia DO Dr. Mark Tereletsky, DO Dr. 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 COMMENT This biopsy demonstrates IgA nephropathy with arterionephrosclerosis suggestive of an underlying chronic vascular disease (e.g., hypertension). Please correlate clinically. MICROSCOPIC DESCRIPTION Sections are evaluated with H & E, PAS, Calero, trichrome and Congo red stains. 15 glomeruli are present. 10 glomeruli are globally sclerotic. Preserved glomeruli demonstrate delicate capillary loops with mild mesangial hypercellularity. No segmental lesions or active glomerulitis are identified. There is approximately 10% interstitial fibrosis with proportionate tubular atrophy. There is a cluster or tubules that are distended with amorphous proteinaceous material. There is a mild mononuclear interstitial inflammatory infiltrate. Arterioles show significant medial thickening. No arteritis is identified. IMMUNOFLUORESCENCE: Glomeruli demonstrate moderate granular mesangial staining for IgA and to a much lesser degree IgM. Stains for light chains kappa and lambda show weak granular mesangial staining with a slight lambda predominance. There is no specific glomerular staining to indicate the deposition of IgG, IgM or C1q. Glomerular fibrin deposition is not increased. ELECTRON MICROSCOPY: One glomerulus is evaluated. Mesangial areas are expanded, often with an increase in cellularity and demonstrate frequent electron dense deposits. Glomerular capillary loops demonstrate basement membranes of normal to slightly increased thickness with no discrete electron dense deposits. There is extensive effacement of overlying epithelial cell foot processes. Tubular basement membranes are of normal thickness with no discrete electron dense deposits. GROSS DESCRIPTION The specimen is sent entirely to [facility] for diagnosis. The specimen is received in transport medium and consists of four cores of shannon renal tissue that range in length from 0.7 to 1.5 cm. The cores are divided for histology, immunofluorescence and electron microscopy.
[2019-06-04 12:00] LABS: Bedside Glucose 160 mg/dL (70-110)
[2019-06-04 13:03] LABS: Eosinophil Ct. Urine No Eosinophils Seen % (.)
--- NOTE | 2019-06-04 13:55 | CASEMGMT ---
Social Work Note MANUELITO spoke with physician, pt is getting dialysis today and it is uncertain if pt will need [facility] dialysis or if pt will only need dialysis at [facility]. MANUELITO placed a call to [facility] and spoke with Cuca and updated her on this information. Cuca states she is able to still accept pt if pt discharges with dialysis, she will just need to know the days, time and place that pt will be getting dialysis. MANUELITO faxed updated clinicals to [facility]. Plan: [facility] once medically cleared Lexis Castorena TREE SURGEON, BRICK EXTRUDER OPERATOR
--- NOTE | 2019-06-04 14:05 | PCM.PN.REN ---
Patient Problems: Active and Suspected Problems (Last Reviewed 05/06/19 @ 09:43 by Ba Montana DO) Acute kidney injury (Acute) Subjective: No nausea No vomiting. No SOB pt has kidney Bx this morning Seen during 1st HD session - Physical Exam General: Alert, Cooperative HEENT: Atraumatic Oral: Moist Mucosa Neck: Supple, No JVD Lungs: Clear to auscultation, Normal air movement, No rhonchi, No wheeze Cardiovascular: Regular rate, Regular Rhythm, Normal S1, Normal S2 Abdomen: Bowel Sounds Present, Soft, Non Tender, Non-Distended Extremities: No clubbing, No cyanosis Musculoskeletal: No Tenderness to Palpation of Joints or Extremities Lymphatic: No Cervical, Supraclavicular, or Inguinal Adenopathy Neurological: Cranial nerves II-XII grossly intact, Neuro grossly intact Psych/Mental Status: Appropriate Vital Signs Temp Pulse Resp BP Pulse Ox 98.6 F 58 L 18 123/93 H 97 06/04/19 09:19 06/04/19 10:50 06/04/19 10:50 06/04/19 10:50 06/04/19 10:50 Oxygen Flow Rate (L/min) [2] 2 Oxygen Delivery Method [5] Room Air Oxygen Delivery Method [4] Room Air Oxygen Delivery Method [3] Room Air Oxygen Delivery Method [2] Nasal Cannula Oxygen Delivery Method [1 ( Room Air Initial Baseline)] Oxygen Delivery Method Room Air Weight: 97.5 kg Body Mass Index (BMI) 35.4 Finger Stick Blood Glucose 127 Intake and Output for Last 24 Hours 06/02/19 06/03/19 06/04/19 23:59 23:59 23:59 Intake Total 950 / 950 220 / 220 360 / 360 Output Total 350 / 350 600 / 600 550 / 550 Balance 600 / 600 -380 / -380 -190 / -190 Laboratory Tests Past 24 Hrs 06/01/19 06/04/19 06/04/19 00:10 05:54 07:55 Eos Smear Total Cells No Eosinophils Seen PT 14.4 INR 1.1 APTT 25.6 Sodium 136 Potassium 5.5 H Chloride 107 Carbon Dioxide 19.0 L Anion Gap 10 BUN 104 H* Creatinine 6.27 H Estim Creat Clear Calc 7.21 Est GFR (MDRD) Af Amer 9 L Est GFR (MDRD) Non-Af 7 L BUN/Creatinine Ratio 16.6 Glucose 171 H Calcium 8.3 L POC Glucose 06/04/19 06/04/19 06/03/19 11:50 06:20 21:03 POC Glucose 160 H 162 H 163 H Medical Necessity - Tobacco Use Smoking Status: Never smoker Tobacco Use: Non-smoker Assessment/Plan All Active Problems (Last Reviewed 05/06/19 @ 09:43 by Ba Montana, DO) Acute kidney injury (Acute) Acute paranoia (Acute) Olecranon fracture (Acute) 1- DARA on CKD stage 3. baseline Cr seems around 1.4-1.7 mg/d DARA is ATN Vs AIN. UA showed leukocytosis with large LSE Kidey function didn't recover. currently HD dependent. HD session started on 06/04 HD session today: BA 200 DQ 600 UF 1L. Will arrange for 2nd HD session tomorrow continue holding lisinopril continue methylprednisolone Kidney Bx today for definitive diagnosis. follow the report Will monitor for kidney function recovery 2- hyperkalemia: should resolve with HD 3- HTN: BP is well controlled. continue holding ACEI 5- Skin rash: On methylprednisolone IV Renal team will continue to follow Please call if any question at [phone]
[2019-06-04 15:50] LABS: Hepatitis B Surface Antibody Non-Reactive; Hepatitis B Surface Antigen Non-Reactive (Nonreactive)
--- NOTE | 2019-06-04 16:16 | DIALYSIS ---
Hemodialysis x 2hrs today. UF -1000mL removed., Pt tolerated tx well. Report to SARITHA Dick Pt stable.
--- NOTE | 2019-06-04 16:35 | CASEMGMT ---
SARITHA KEITH NOTE: Per Dr Dave, pt will need New OP HD set up and states he has talked with the family and they are agreeable. Dr Dave states to send referral to [facility]. On-line referral sent to [facility] and all required paperwork faxed to them except for Dialysis treatments and Hep B panel d/t they are still pending. Will fax these to [facility] when they are available. Sandeep MORELAND RN CM
--- NOTE | 2019-06-04 16:39 | PCM.PROGNOTE ---
Patient Problems: Active and Suspected Problems (Last Reviewed 05/06/19 @ 09:43 by Ba Montana DO) Acute kidney injury (Acute) Subjective: Patient was seen and examined today, she underwent hemodialysis today for the first time and also had a renal biopsy. She appears fatigued today during my visit, I talked with her who is here in the room. Patient has no specific complaints, she remains confused - Physical Exam General: Cooperative, No apparent distress, Confused, Lethargic HEENT: Atraumatic, PERRLA, EOMI, Normocephalic Neck: Supple, No JVD, Negative Carotid Bruits Lungs: Clear to auscultation, Normal air movement, No rhonchi, No wheeze, No rales Cardiovascular: Regular rate, Regular Rhythm, Normal S1, Normal S2, No murmurs Abdomen: Bowel Sounds Present, Soft, Non Tender, Non-Distended Extremities: No clubbing, No cyanosis, Capillary Refill Less than 3 Seconds Skin: - - Scattered stasis ulcerations are noted to both lower extremities, stasis dermatitis changes are noted over both lower legs Musculoskeletal: No Tenderness to Palpation of Joints or Extremities Neurological: Cranial nerves II-XII grossly intact, Neuro grossly intact, Sensory exam intact to light touch and pain Psych/Mental Status: Flat Affect, - - Patient is alert but confused, she is not agitated Vital Signs Temp Pulse Resp BP Pulse Ox 98 F 55 L 18 148/66 H 99 06/04/19 15:50 06/04/19 15:50 06/04/19 15:50 06/04/19 15:50 06/04/19 15:50 Oxygen Flow Rate (L/min) [2] 2 Oxygen Delivery Method [5] Room Air Oxygen Delivery Method [4] Room Air Oxygen Delivery Method [3] Room Air Oxygen Delivery Method [2] Nasal Cannula Oxygen Delivery Method [1 ( Room Air Initial Baseline)] Oxygen Delivery Method Room Air Weight: 97.5 kg Body Mass Index (BMI) 35.4 Finger Stick Blood Glucose 127 Intake and Output for Last 24 Hours 06/02/19 06/03/19 06/04/19 23:59 23:59 23:59 Intake Total 950 / 950 220 / 220 360 / 360 Output Total 350 / 350 600 / 600 550 / 550 Balance 600 / 600 -380 / -380 -190 / -190 Laboratory Tests Past 24 Hrs 06/01/19 06/04/19 06/04/19 00:10 05:54 07:55 Eos Smear Total Cells No Eosinophils Seen PT 14.4 INR 1.1 APTT 25.6 Sodium 136 Potassium 5.5 H Chloride 107 Carbon Dioxide 19.0 L Anion Gap 10 BUN 104 H* Creatinine 6.27 H Estim Creat Clear Calc 7.21 Est GFR (MDRD) Af Amer 9 L Est GFR (MDRD) Non-Af 7 L BUN/Creatinine Ratio 16.6 Glucose 171 H Calcium 8.3 L Hep Bs Antigen Hep Bs Antibody 06/04/19 15:05 Eos Smear Total Cells PT INR APTT Sodium Potassium Chloride Carbon Dioxide Anion Gap BUN Creatinine Estim Creat Clear Calc Est GFR (MDRD) Af Amer Est GFR (MDRD) Non-Af BUN/Creatinine Ratio Glucose Calcium Hep Bs Antigen Non-Reactive Hep Bs Antibody Non-Reactive POC Glucose 06/04/19 06/04/19 06/03/19 11:50 06:20 21:03 POC Glucose 160 H 162 H 163 H Medical Necessity - Tobacco Use Smoking Status: Never smoker Tobacco Use: Non-smoker Assessment/Plan All Active Problems (Last Reviewed 05/06/19 @ 09:43 by Ba Montana DO) Acute kidney injury (Acute) Acute paranoia (Acute) Olecranon fracture (Acute) #1 acute renal failure on a backdrop of chronic kidney disease stage IV-etiology unclear at this point, perhaps ATN or AIN, patient will remain on dialysis #2 dementia-supportive care #3 paroxysmal atrial fibrillation #4 hypothyroidism #5 type 2 diabetes-patient's blood sugars will be monitored #6 hypothyroidism #7 hypertension #8 stasis dermatitis changes to both lower extremities #9 rash-etiology unclear at this time, this has improved, patient is currently off corticosteroids #10 scattered stasis ulcerations to lower legs Code Visit Inpatient E&M: 75834 Subs Hosp L2
[2019-06-04 21:11] LABS: Bedside Glucose 132 mg/dL (70-110)
[2019-06-04] MEDS: 0.9% NaCl Peripheral Flush Adult/Peds IV (21:12)
[2019-06-04 21:21] LABS: Bedside Glucose 153 mg/dL (70-110)
[2019-06-05 03:23] VITALS: BP 150/62; PULSE 56; RESP 18; TEMP 36.5; O2SAT 96
[2019-06-05] MEDS: Ondansetron 4 MG/2 ML Vial IV ×2 (03:31→09:58)
[2019-06-05] MEDS: 0.9% NaCl Peripheral Flush Adult/Peds IV ×2 (03:32→06:35)
[2019-06-05 06:18] LABS: Anion Gap 10 (5-15); BUN 79 mg/dL (7-18); BUN/Creat Ratio 15.9 RATIO (10-20); Calcium,Total 8.2 mg/dL (8.5-10.1); Chloride 107 mmol/L (98-107); Creatinine, Serum 4.96 mg/dL (0.55-1.02); EST Glomerular Filtration Rate 9 mL/min (>60); Est Glom Filt Rate - Afr Amer 11 mL/min (>60); Estimated Creatinine Clearance 9.11 ml/min; Glucose 147 mg/dL (74-106); Sodium Level 137 mmol/L (136-145)
[2019-06-05] MEDS: Levothyroxine 100 MCG Tablet PO (06:33)
[2019-06-05 06:40] LABS: Bedside Glucose 144 mg/dL (70-110)
--- NOTE | 2019-06-05 10:15 | CASEMGMT ---
Addendum entered by Klaudia Mario 06/05/19 15:35: Per [facility] on-line referral portal, pt is ready for treatment. Dialysis Schedule Letter received from [facility] and [facility] Addendum entered by Klaudia Mario 06/05/19 13:56: Transportation to [facility] has been arranged by MANUELITO Dean. color paste mixing supervisor time will be 1530 today. To room to talk with pt's and he was notified pt is being discharged today and pharmacy picking tech time. He was also made aware OP HD @ [facility] chair time is T/TH/Sat @ 0630 w/arrival time being 0610. Call placed to pt's daughter, Carly @ [phone], and she was notified of all of the above as well. She states she will take copies of HCPOA to [facility] and to [facility]. RNJillian, made aware of pharmacy picking tech time for transfer today at 1530. Addendum entered by Klaudia Mario 06/05/19 13:22: No return call yet from [facility] corporate office re: insurance approval. Call placed to Yaron, ten pin bowling centre manager @ [facility]. He states pt has been cleared medically and financially. He states he will fax Dialysis treatment schedule to SARITHA KEITH to be sent with pt to [facility]. He also states he will try and contact Gracie Castillo, [facility] Newspaper Carrier. Addendum entered by Klaudia Mario 06/05/19 11:38: Call placed to Gracie, @ [facility] to inquire about Insurance approval/acceptance for OP HD. Message left. Awaiting return call. Original Note: RN SAGAR NOTE: To room to talk with @ bedside. He was made aware that pt will need OP HD and that referral has been sent to [facility] per Dr Dave's request. states he is agreeable to OP HD and with pt going to [facility]. states that his son and daughter are listed as HCPOA. called daughter, Carly, while this RN CM in room and this RN CM spoke with Carly. Carly states that her father/pt's is listed as primary HCPOA, pt's son, Griffin is listed as 1st alternative and then she (Carly) is listed as 2nd alternative. Carly states that her brother Griffin is currently out of state, though. She states that her father/pt's , often defers any decision making to Griffin and Carly. Spoke with Carly about new OP HD and she is also agreeable to this and with [facility] as the OP facility. and Carly were both made aware we are awaiting insurance approval and chair time @ [facility] in order to determine when pt will be discharged. Carly voices understanding. She states prefers chair time to be MWF d/t other doctor appts on , but states if chair time needs to be T/TH/Sat, that she can inquire about getting the appts changed. Carly states she will bring in copies of HCPOA to hospital today. Hep B results are in and are negative. Results faxed to [facility]. Call to [facility] and left message for pt's coordinator Kira Charlton to return call for update on insurance approval. Call to Yaron, Newspaper Carrier @ [facility]. He states they have received paperwork on pt and anticipates chair time to be T/TH/Sat @ 0630 with arrival time being 0610. Dianne BILLINGS, made aware and she will contact [facility] to see if they can arrange for transportation to [facility] at that time. Yaron was also made aware of HCPOA info as stated above by Carly. Will fax HCPOA paperwork to [facility] once it is received. Dr Dave on unit and made aware anticipated chair time @ [facility] will be T, TH, Sat @ 0630. He states pt can skip treatment tomorrow/Sunday and get her next treatment as an OP on Sunday. Dr Walters made aware Dr Dave agreeable to pt being discharged after 2nd HD treatment today and get 3rd treatment as an OP on Sunday. Sandeep ALCOCERN RN CM
[2019-06-05 10:36] VITALS: O2SAT 96
--- NOTE | 2019-06-05 11:02 | CASEMGMT ---
LW/POA not in chart, CM spoke w/family. Pt's is POA, son Griffin is first alternate and daughter Amanda is second alternate. Daughter will bring papers in today. AUGUST Rios
--- NOTE | 2019-06-05 11:10 | PN.RENAL_ITS ---
Patient Problems: Active and Suspected Problems (Last Reviewed 05/06/19 @ 09:43 by Ba Montana DO) Acute kidney injury (Acute) Subjective: Pt was seen during the 2nd HD session . complaining of nausea. No vomiting so far No SOB. - Physical Exam General: Alert, Cooperative, Disoriented HEENT: Atraumatic Oral: Moist Mucosa Neck: Supple, No JVD Lungs: Clear to auscultation, Normal air movement, No rhonchi, No wheeze Cardiovascular: Regular rate, Regular Rhythm, Normal S1, Normal S2 Abdomen: Bowel Sounds Present, Soft, Non Tender, Non-Distended Extremities: No clubbing, No cyanosis, Edema - +1 edema of LE Neurological: Neuro grossly intact Psych/Mental Status: - - Not oriented Vital Signs Temp Pulse Resp BP Pulse Ox 97.7 F L 56 L 18 150/62 H 96 06/05/19 03:23 06/05/19 03:23 06/05/19 03:23 06/05/19 03:23 06/05/19 03:23 Oxygen Flow Rate (L/min) [2] 2 Oxygen Delivery Method [5] Room Air Oxygen Delivery Method [4] Room Air Oxygen Delivery Method [3] Room Air Oxygen Delivery Method [2] Nasal Cannula Oxygen Delivery Method [1 ( Room Air Initial Baseline)] Oxygen Delivery Method Room Air Weight: 96.4 kg Body Mass Index (BMI) 35.4 Finger Stick Blood Glucose 127 Intake and Output for Last 24 Hours 06/03/19 06/04/19 06/05/19 23:59 23:59 23:59 Intake Total 220 / 220 360 / 460 200 / 200 Output Total 600 / 600 1550 / 1550 Balance -380 / -380 -1190 / -1090 200 / 200 Laboratory Tests Past 24 Hrs 06/01/19 06/04/19 06/05/19 00:10 15:05 05:44 Eos Smear Total Cells No Eosinophils Seen Sodium 137 Potassium 5.0 Chloride 107 Carbon Dioxide 20.0 L Anion Gap 10 BUN 79 H Creatinine 4.96 H Estim Creat Clear Calc 9.11 Est GFR (MDRD) Af Amer 11 L Est GFR (MDRD) Non-Af 9 L BUN/Creatinine Ratio 15.9 Glucose 147 H Calcium 8.2 L Hep Bs Antigen Non-Reactive Hep Bs Antibody Non-Reactive POC Glucose 06/05/19 06/04/1919 06:32 21:10 17:41 POC Glucose 144 H 153 H 132 H 06/04/19 11:50 POC Glucose 160 H Medical Necessity - Tobacco Use Smoking Status: Never smoker Tobacco Use: Non-smoker Assessment/Plan All Active Problems (Last Reviewed 05/06/19 @ 09:43 by Ba Montana, DO) Acute kidney injury (Acute) Acute paranoia (Acute) Olecranon fracture (Acute) 1- DARA on CKD stage 3. baseline Cr seems around 1.4-1.7 mg/d DARA is ATN Vs AIN. UA showed leukocytosis with large LSE Kidey function didn't recover. currently HD dependent. HD session started on 06/04 2nd HD session today: BA 300 DQ 600 UF 1L. Will arrange for 3rd HD session tomorrow if she remains inpatient continue holding lisinopril continue methylprednisolone Kidney Bx today for definitive diagnosis. follow the report Will monitor for kidney function recovery 2- hyperkalemia: should resolve with HD 3- HTN: BP is well controlled. continue holding ACEI 5- Skin rash: On methylprednisolone IV Pt was approved for HD spot TTS at [facility] Ok to d/c patient today from nephrology stand point to start HD at HD center on Thursday 06/07 Dr. Ocampo will follow the pathology report of the kidney Bx for definitive diagnosis. Dr Benitez is aware of the pending biopsy Renal team will continue to follow Please call if any question at [phone]
--- NOTE | 2019-06-05 11:41 | CASEMGMT ---
Addendum entered by Dianne Richards 06/05/19 14:24: Dialysis is confirmed for pt. SW set up 3:30pm ambulance w/[facility]. SW let Cuca at [facility] know pt is set up to leave here at 3:30pm. CM let pt's and RN here know. No further needs, pt to [facility] today. AUGUST Rios Addendum entered by Dianne Richards 06/05/19 13:25: SW faxed all discharge paperwork to [facility] along with the hospital exemption completed in the [facility] system. SW waiting for final word that dialysis is fully set up and will set up transportation for pt to [facility]. SW let pt and know it's looking that pt will be able to go to [facility] today, will let them know once transportation is arranged what time pt is leaving. AUGUST Rios Original Note: SW spoke w/SAGAR, pt's dialysis schedule is ,Sat 6:30am chair time, and pt needs to be there at 6:10am. SW called [facility], spoke w/Cuca, let her know the schedule. She confirmed that transportation is set up to take pt to dialysis starting this coming Sunday. SW let physician know, he will likely discharge pt today. AUGUST Rios
--- NOTE | 2019-06-05 11:48 | PCM.TXEXTCAR ---
- Diet 06/03/19 18:00 Diet: Cardiac/Low Cholesterol Is pt able to select menu?: Yes - Wound(s) KWABENA LOWER LEGS Wound Type: scattered stasis ulcers Dressing Change: Adaptic Left Arm Scab Wound Type: SCABBED AREA RT CHEST Wound Type: Surgical Incision - Therapies Physical Therapy: Eval and Treat Occupational Therapy: Eval and Treat - Problem/Diagnosis (1) Rash and nonspecific skin eruption Status: Acute Current Visit: Yes (2) Venous ulcer of right leg Status: Chronic Current Visit: No (3) Acute kidney injury Status: Acute Current Visit: Yes (4) Morbid obesity with BMI of 50.0-59.9, adult Status: Chronic Current Visit: No (5) Hypertension Status: Chronic Current Visit: No (6) Chronic venous insufficiency Status: Chronic Current Visit: No (7) Alzheimers disease Status: Chronic Current Visit: No (8) Diabetes Status: Chronic Comment: on no medication Current Visit: No - Allergies/Procedures Done in Hospital Allergies/Adverse Reactions: Allergies exenatide [From Byetta] Allergy (Intermediate, Verified 05/30/19 12:08) Unknown Sulfa (Sulfonamide Antibiotics) Allergy (Intermediate, Verified 05/30/19 12:08) Unknown Tetracyclines Allergy (Intermediate, Verified 05/30/19 12:08) Unknown Procedures: Dialysis, - - renal biopsy, tunneled dialysis catheter placement - Type of Care/Length of Stay Estimated LOS: Convalescent Care Less Than 30 days Type of Care Needed: Skilled Rehab Potential: Good Prognosis: Good - Additional Orders/Day of Discharge Additional Orders: follow up with Dr. Ocampo or T[facility]in H&P will serve as current which was dated: 05/30/19 Day of Discharge: 06/05/19 - Follow Up Care Primary Care Physician: Ba Montana DO [Primary Care Provider] -
[2019-06-05] MEDS: Heparin 10,000 UNITS/10 ML Vial IV (13:12)
[2019-06-05 13:18] VITALS: BP 150/80; PULSE 60; RESP 16; TEMP 37.2
--- NOTE | 2019-06-05 13:45 | DIALYSIS ---
Hemodialysis x 2.5 hours completed as ordered. -1200ml UF. Tolerated very well. Stable t/o. CVC closed with Heparin. Dressing d/i and reported to had been changed by hospital staff overnight after pt pulled off. Report to Luis MELARA
[2019-06-05 14:22] VITALS: BP 157/54; PULSE 59; RESP 18; TEMP 36.7; O2SAT 95
--- NOTE | 2019-06-05 15:01 | NURSING ---
Call placed to [facility] and report given to nurse who is taking care of patient
[2019-06-05] MEDS: Insulin Lispro 100 UNIT/ML INSULN.PEN SC (15:16)
[2019-06-05 17:10] LABS: Bedside Glucose 174 mg/dL (70-110)
--- NOTE | 2019-06-06 07:47 | PCM.DC.SUM ---
Discharge Date and Diagnosis Date of Admission: 05/30/19 Date of Discharge: 06/05/19 - Primary Discharge Diagnosis #1 acute renal failure on a backdrop of chronic kidney disease stage IV-etiology unclear at this point, perhaps ATN or AIN #2 dementia #3 paroxysmal atrial fibrillation #4 hypothyroidism #5 type 2 diabetes #6 hypothyroidism #7 hypertension #8 stasis dermatitis changes to both lower extremities #9 rash-etiology unclear at this time #10 scattered stasis ulcerations to lower legs - Secondary Discharge Diagnosis Chronic Problems (Last Reviewed 05/06/19 @ 09:43 by Ba Montana DO) Leg edema (Chronic) Venous ulcer of right leg (Chronic) Alzheimers disease (Chronic) Morbid obesity with BMI of 50.0-59.9, adult (Chronic) Sleep apnea (Chronic) Skin ulcer (Chronic) Pneumonia (Chronic) Kidney failure (Chronic) Kidney disease (Chronic) IBS (irritable bowel syndrome) (Chronic) Hypertension (Chronic) Heart failure (Chronic) Diabetes (Chronic) on no medication Asthma (Chronic) Arthritis (Chronic) Seasonal allergies (Chronic) Leg swelling (Chronic) Hyperpigmentation of skin (Chronic) Lipodermatosclerosis (Chronic) Venous ulcer of left leg (Chronic) Venous hypertension, chronic, with ulcer (Chronic) Chronic venous insufficiency (Chronic) Morbid obesity with BMI of 50.0-59.9, adult (Chronic) Obstructive sleep apnea on CPAP (Chronic) Obesity (Chronic) Peripheral neuropathy (Chronic) Chronic kidney disease (Chronic) Hypothyroidism (Chronic) Hypercholesteremia (Chronic) Diabetes mellitus (Chronic) CHF (congestive heart failure) (Chronic) Postphlebetic syndrome with ulcer (Chronic) History of pulmonary embolism (Chronic) History of DVT (deep vein thrombosis) (Chronic) Asthma (Chronic) Hospital Course and Treatment Consultations 06/02/19 07:31 Consult: Onc/Wound/oral therapist Routine Comment: Operations: - - Insertion of tunneled dialysis catheter Procedures: Dialysis, - - Percutaneous renal biopsy Summary of Care Provided: The patient is a 69 year old F was seen in the emergency room at [facility] with a chief complaint of a rash over her chest and upper back area x3 to 4 days, she complained of itching. Evaluation in the emergency room included labs which showed the patient's creatinine to be 4.54, BUN was 53, CBC was unremarkable. Was felt that the patient's rash was secondary to a drug reaction-exact drug was unknown. Patient was admitted to [place] [address], she was seen in consultation by nephrology, and she was placed on IV corticosteroids. Her renal function declined during her admission and she became an uric, discussions were carried out with the patient's and daughter due to the patient's confusion (this was felt to be due to dementia-but according to the , the confusion the patient exhibited had been recent in nature). Family decided to have the patient undergo dialysis, kidney biopsy was performed to further elucidate the reason for the patient's renal decline. General surgery was consulted for insertion of a dialysis catheter which was performed. Patient underwent dialysis and had no untoward side effects from the dialysis. She was seen by PT and OT and was felt to benefit from short-term placement in [facility] facility and this was approved by her insurance. The rash on the patient's chest and back improved during her hospital stay, it was unknown the exact etiology of the rash. On 06/05/2019, patient was seen and examined: On examination she appeared alert, she was confused and mildly lethargic. Vital signs as documented. Skin warm and dry and without overt rashes. Neck without JVD. Lungs clear. Heart exam notable for regular rhythm, normal sounds and absence of murmurs, rubs or gallops. Abdomen unremarkable and without evidence of organomegaly, masses, or abdominal aortic enlargement. Extremities-chronic stasis dermatitis changes are noted over both lower legs along with superficial abrasions.. Neuro: Cranial nerves II through XII are grossly intact, no focal motor deficits were noted, sensation to light touch and pinprick is intact. Psych: Patient is alert and confused, she does not appear depressed or anxious. On 06/05/2019, patient was seen and examined and felt to be stable for transfer to an extended care facility for short-term rehab. - Physical Exam Vital Signs Temp Pulse Resp BP Pulse Ox 98.1 F 59 L 18 157/54 H 95 06/05/19 14:22 06/05/19 14:22 06/05/19 14:22 06/05/19 14:22 06/05/19 14:22 Oxygen Flow Rate (L/min) [2] 2 Oxygen Delivery Method [5] Room Air Oxygen Delivery Method [4] Room Air Oxygen Delivery Method [3] Room Air Oxygen Delivery Method [2] Nasal Cannula Oxygen Delivery Method [1 ( Room Air Initial Baseline)] Oxygen Delivery Method Room Air Weight: 96.4 kg Body Mass Index (BMI) 35.4 Finger Stick Blood Glucose 127 Intake and Output for Last 24 Hours 06/04/19 06/05/19 06/06/19 23:59 23:59 23:59 Intake Total 360 / 460 400 / 400 Output Total 1550 / 1550 1200 / 1200 Balance -1190 / -1090 -800 / -800 POC Glucose 06/05/19 15:15 POC Glucose 174 H Home Medications: Medications to take at Discharge Cholecalciferol (VIT D3) [Vitamin D3] 1,000 unit PO DAILY 01/05/15 albuterol sulfate HFA 90 mcg/actuation aerosol inhaler 2 puff INHALATION Q6H PRN #8.5 g 03/21/19 diltiazem CD 180 mg capsule,extended release 24 hr 180 mg PO DAILY 05/06/19 Acetaminophen [Tylenol] 325 mg PO Q6H PRN PRN 05/30/19 Levothyroxine [Synthroid] 100 mcg PO DAILY 05/30/19 Acetaminophen [Tylenol Tablet] 650 mg PO Q6H PRN PRN tab 06/05/19 Primary Care Physician: Ba Montana DO [Primary Care Provider] - Disposition: Jail facility Minutes spent on discharge:: 35 Patient Condition:: Stable Medical Necessity - Tobacco Use Smoking Status: Never smoker Tobacco Use: Non-smoker Meaningful Use Info Meaningful Use Diagnoses (Choose all that apply): None applicable Code Visit Inpatient E&M: 64195 Disch Hosp
== END 2019-06-05 16:00 | disposition skilled nursing facility (03) | DRG 579 ==
LOC: ED 16:00 → MS3 05-31 07:19
PROVIDERS: Internal Medicine; Internal Medicine Nephrology; Surgery; Admitting Provider Student in an Organized Health Care Education/Training Program; Emergency Provider Emergency Medicine; Family Provider Family Medicine; PCP Family Medicine; Visit Provider Internal Medicine
PROC: 0JH63XZ Insertion of Tunneled Vascular Access Device into Chest Subcutaneous Tissue and Fascia, Percutaneous Approach (ICD-10-PCS; principal; 2019-06-03 15:45)
DX: L27.0 Generalized skin eruption due to drugs and medicaments taken internally (principal); N17.0 Acute kidney failure with tubular necrosis; N18.4 Chronic kidney disease, stage 4 (severe); E87.1 Hypo-osmolality and hyponatremia; N10 Acute pyelonephritis; I13.0 Hypertensive heart and chronic kidney disease with heart failure and stage 1 through stage 4 chronic kidney disease, or unspecified chronic kidney disease; T50.905A Adverse effect of unspecified drugs, medicaments and biological substances, initial encounter; I48.0 Paroxysmal atrial fibrillation; E03.9 Hypothyroidism, unspecified; E11.22 Type 2 diabetes mellitus with diabetic chronic kidney disease; I87.2 Venous insufficiency (chronic) (peripheral); E87.5 Hyperkalemia; I50.9 Heart failure, unspecified; E78.5 Hyperlipidemia, unspecified; F03.90 Unspecified dementia, unspecified severity, without behavioral disturbance, psychotic disturbance, mood disturbance, and anxiety
CPT/HCPCS: 11042; 11045; 29580; 36415; 71045; 76000; 76770; 77012; 80048; 80053; 81001; 82550; 82570; 82962; 83735; 84300; 85025; 85610; 85652; 85730; 86140; 86706; 87205; 87340; 88305; 88313; 88346; 88348; 88350; 90937; 97162; 97166; 97802; 99156; 99157; 99212; 99284; J7030; J7040; J7120; A4216; C1750; G0257; G0463; J1940; J2405

== ENCOUNTER → 2019-06-30 | Outpatient (CLI) | payer MEDICARE, OTHER, SELFPAY ==
[2019-06-03 15:45] VITALS: BMI 35.4
--- NOTE | 2019-06-30 12:03 | RAD_ITS ---
STUDY: X-RAY - LUMBAR SPINE REASON FOR EXAM: Female, 69 years old. Lower back pain. TECHNIQUE: 3 view(s) of the lumbar spine were obtained. COMPARISON: None FINDINGS: There is a grade 2 anterior spondylolisthesis of L4 on L5. There is multilevel endplate spondylosis of the lumbar vertebrae. There is multi-level degenerative disc disease with multi-level disc space narrowing. There is atherosclerotic calcification of the abdominal aorta without a demonstrated aneurysm. RAD/Lumbar Spine 2 or 3 Views IMPRESSION: Degenerative changes. Grade 2 anterior spondylolisthesis of L4 on L5. Atherosclerosis. Electronically Signed: Marifer Cerda MD at 17:53 EDT Tel , Service support ,
--- NOTE | 2019-06-30 12:15 | RAD_ITS ---
STUDY: X-RAY - ABDOMEN/PELVIS REASON FOR EXAM: Female, 69 years old. Abdominal pain TECHNIQUE: For frontal images of the abdomen were obtained. COMPARISON: None. FINDINGS: There is a calcified density at the left lung base consistent with a granuloma. There is an unremarkable bowel gas pattern. There is no demonstrated free abdominal air. There are diffuse degenerative changes of the visualized lumbar spine. There are surgical clips projecting over the medial upper right thigh. RAD/Abd Inc Decub and/or Erect IMPRESSION: Nonspecific bowel gas pattern. Electronically Signed: Marifer Cerda MD at 17:05 EDT Tel , Service support ,
[2019-06-30 12:43] LABS: Absolute Lymphocyte Count 1.07 X10^3/uL (0.83-4.51); Absolute Neutrophil Count 4.4 X10^3/uL (2.0-7.7); Basophil# 0.02 X10^3/uL; Basophil% 0.3 % (0-1); Eosinophil# 0.06 X10^3/uL; Hematocrit 32.1 % (37-47); Hemoglobin 10.4 g/dL (12.0-15.0); Lymphocyte # 1.07 X10^3/ul (4.0); Lymphocyte % 17.3 % (19-41); Mean Corp Hgb Conc 32.4 g/dL (32-36); Mean Corpuscular Hgb 29.5 pg (27.0-32.0); Mean Corpuscular Volume 90.9 fL (81-99); Mean Platelet Vol. 9.3 fl (6.2-12.0); Monocyte# 0.59 X10^3/uL; Monocyte% 9.6 % (0-10); NRBC Flagged by Analyzer 0 % (0-5); Neutrophil # 4.36 X10^3/uL (2.7-7.7); Neutrophil % 70.7 % (47-70); Platelet Count 224 K/mm3 (150-450); RBC Distribution Width CV 14.1 % (11.6-14.6); RBC Distribution Width SD 46.6 fl (35.1-43.9); Red Blood Count 3.53 M/mm3 (4.2-5.4); White Blood Count 6.2 K/mm3 (4.4-11.0)
[2019-06-30 13:21] LABS: ALB/GLOB Ratio 0.7 RATIO (0.9-2.4); AST(SGOT) 17 U/L (15-37); Alanine Aminotransfer ALT/SGPT 13 U/L (13-56); Albumin, Serum 2.3 g/dL (3.2-5.0); Alkaline Phosphatase 127 U/L (45-117); Anion Gap 9 (5-15); BUN 16 mg/dL (7-18); BUN/Creat Ratio 6.8 RATIO (10-20); Calcium,Total 8.3 mg/dL (8.5-10.1); Chloride 98 mmol/L (98-107); Creatinine, Serum 2.36 mg/dL (0.55-1.02); EST Glomerular Filtration Rate 22 mL/min (>60); Est Glom Filt Rate - Afr Amer 26 mL/min (>60); Globulin 3.5 g/dL (2.2-4.2); Glucose 89 mg/dL (74-106); Potassium 3.7 mmol/L (3.5-5.1); Protein, Total 5.8 g/dL (6.4-8.2); Sodium Level 137 mmol/L (136-145); Thyroid Stim Hormone (TSH) 0.18 uIU/mL (0.358-3.74)
[2019-06-30 13:59] LABS: Hepatitis C Antibody Non-Reactive (Nonreactive); Vitamin B12 316 pg/mL (211-911)
[2019-07-01 10:51] LABS: T3 Uptake 42 % (30-39); T4 Free Direct 2.09 ng/dL (0.76-1.46)
[2019-07-04 05:26] LABS: Rapid Plasmin Reagin (RPR) NONREACTIVE (NONREACTIVE)
== END | disposition home or self-care (01) ==
PROVIDERS: Family Provider Family Medicine Geriatric Medicine; PCP Family Medicine Geriatric Medicine; Referring Provider Family Medicine Geriatric Medicine; Visit Provider Family Medicine Geriatric Medicine
DX: Z13.89 Encounter for screening for other disorder (principal); E53.8 Deficiency of other specified B group vitamins; F05 Delirium due to known physiological condition; E03.9 Hypothyroidism, unspecified; I10 Essential (primary) hypertension; M54.5 Low back pain; R10.9 Unspecified abdominal pain
CPT/HCPCS: 36415; 72100; 74019; 80053; 82607; 82746; 84439; 84443; 84479; 85025; 86592; 86803

== ENCOUNTER → 2019-07-01 | Outpatient (CLI) | payer MEDICARE, OTHER, SELFPAY ==
[2019-06-03 15:45] VITALS: BMI 35.4
== END | disposition home or self-care (01) ==
LOC: POLAB3 14:51 → LABSPEC 14:52
PROVIDERS: Family Provider Family Medicine Geriatric Medicine; PCP Family Medicine Geriatric Medicine; Visit Provider Family Medicine Geriatric Medicine
DX: N39.0 Urinary tract infection, site not specified (principal)
CPT/HCPCS: 87086; 87088

== ENCOUNTER 2019-07-02 12:48 | Emergency (ER) | payer MEDICARE, OTHER, SELFPAY ==
[2019-06-03 15:45] VITALS: BMI 35.4
[2019-07-02 12:49] VITALS: BP 155/71; PULSE 75; RESP 16; TEMP 36.7; O2SAT 100; BMI 32.4
--- NOTE | 2019-07-02 13:49 | CT_ITS ---
STUDY: CT ABDOMEN AND PELVIS WITHOUT CONTRAST REASON FOR EXAM: Female, 69 years old. Left flank pain. RADIATION DOSAGE (If Supplied By Facility): CTDIvol = ( 19.56 ) mGy, DLP = ( 1001.57 ) mGycm TECHNIQUE: Transaxial images were obtained from the dome of the diaphragm to the symphysis pubis without oral contrast, and without intravenous contrast. Sagittal and coronal images were reconstructed. Individualized dose optimization techniques were used for this CT. COMPARISON: None. FINDINGS: Minimal increased markings at the right lung base suggestive of scarring. Focal increased markings in the lingular segment of the left upper lobe suggestive of scarring. Coronary artery calcification. Normal liver. There is a solitary gallstone. Normal spleen. Normal pancreas. Normal bilateral adrenal glands. Normal right kidney. Punctate calcification in the lower pole calyx of the left kidney. Normal visualized stomach. Inflammatory changes in the region of the second portion and third portion of the duodenum with increased markings in the surrounding peritoneal fat. I also suspect a duodenal diverticulum in the second portion of the duodenum. Localized pancreatitis should be ruled out. There are multiple colonic diverticula consistent with diverticulosis. The appendix is visualized and appears normal. There is diffuse atherosclerotic calcification of the abdominal aorta, without a demonstrated aneurysm. Normal inferior vena cava. There is borderline retroperitoneal lymphadenopathy with enlarged nodes no greater than 10mm in the short axis diameter. Normal urinary bladder. Normal abdominal wall. The space narrowing and disc degeneration at the L4-L5 level. CT/Abdomen/Pelvis without Cont IMPRESSION: Inflammatory changes in the region of the head of the pancreas and second and third portions of the duodenum. An inflammatory process such as localized pancreatitis should be ruled out. I also suspect a diverticulum in the second portion of the duodenum. Solitary gallstone. Electronically Signed: [place], at 15:45 EDT , Service support ,
--- NOTE | 2019-07-02 13:50 | ED.VISSUMM ---
- ER Visit Summary Date of Service: 07/02/19 Chief Complaint: Nausea and vomiting History of Present Illness: The patient is a 69 F history of diabetes and end-stage renal disease for worse she gets dialysis. Recent hospital admission for renal failure and then a half-way stay of 2 to 3 weeks and recently been discharged home. Previously was diabetic according to her but she lost 200 pounds and was taken off diabetic medications. Saw primary care physician yesterday. Had a full dialysis run yesterday. Still having nausea vomiting last night. Also some right flank pain. No dysuria. No fever. No diarrhea or melena. Has been stated he thought he saw a kidney stone in her urine. Physical Examination: Older female no acute distress. Vital signs are stable and afebrile. HEENT exam unremarkable. Neck nontender. Lungs clear to auscultation bilaterally. Heart regular rhythm no murmur. Abdomen soft and nontender normal bowel sounds no peritoneal signs. No signs of obstruction. Chest wall nontender. She has a right Vas-Cath tunneled subclavian catheter in. Patient is moving all 4 extremities. Neurologically she is awake and alert with no focal motor deficits. Test Results: CBC shows white count 8. Hemoglobin is 10 which is her baseline anemia. Chemistries unremarkable creatinine is 2 which again is baseline with a known history of end-stage renal disease. Liver enzymes unremarkable. Alkaline phosphatase was 88. Lipase normal at 153. Urinalysis normal. No blood no infection. CAT scan abdomen pelvis without contrast due to renal function shows a single solitary gallstone. And mild inflammation of the pancreatic head and duodenum of the small intestine. However according to her labs she does not have pancreatitis. Emergency Department Course and Treatment: Patient will be treated with IV fluids IV Zofran and morphine. CAT scan and labs to be obtained. BPD 16.18 she feels and looks much better. She is no longer vomiting. Her pain is improved as has her nausea with morphine and Zofran. Treatment Plan: Zofran for nausea. Follow-up with primary care physician. Disposition: Discharge Impression: Acute nausea and vomiting History of end-stage renal disease dialysis This note was generated with [employer] dictation software. It may contain incorrect words, spelling, and punctuation that were not noted in review of the chart prior to signing ED Disposition - Plan for ED Patient: Referrals: Bartolo Smith Chi, MD [Primary Care Provider] -
[2019-07-02 14:21] LABS: Absolute Lymphocyte Count 1.06 X10^3/uL (0.83-4.51); Absolute Neutrophil Count 6.5 X10^3/uL (2.0-7.7); Basophil# 0.03 X10^3/uL; Basophil% 0.4 % (0-1); Eosinophil# 0.03 X10^3/uL; Eosinophils% 0.4 % (0-5); Hematocrit 31.6 % (37-47); Hemoglobin 10.2 g/dL (12.0-15.0); Lymphocyte # 1.06 X10^3/ul (4.0); Lymphocyte % 12.6 % (19-41); Mean Corp Hgb Conc 32.3 g/dL (32-36); Mean Corpuscular Hgb 29.1 pg (27.0-32.0); Mean Corpuscular Volume 90.3 fL (81-99); Mean Platelet Vol. 10.1 fl (6.2-12.0); Monocyte# 0.73 X10^3/uL; Monocyte% 8.7 % (0-10); NRBC Flagged by Analyzer 0 % (0-5); Neutrophil # 6.51 X10^3/uL (2.7-7.7); Neutrophil % 77.1 % (47-70); Platelet Count 220 K/mm3 (150-450); RBC Distribution Width CV 14.6 % (11.6-14.6); RBC Distribution Width SD 46.8 fl (35.1-43.9); White Blood Count 8.4 K/mm3 (4.4-11.0)
[2019-07-02 14:35] LABS: AST(SGOT) 27 U/L (15-37); Alanine Aminotransfer ALT/SGPT 13 U/L (13-56); Albumin, Serum 2.3 g/dL (3.2-5.0); Alkaline Phosphatase 128 U/L (45-117); Anion Gap 5 (5-15); BUN 16 mg/dL (7-18); BUN/Creat Ratio 7.5 RATIO (10-20); Calcium,Total 8.3 mg/dL (8.5-10.1); Chloride 99 mmol/L (98-107); Creatinine, Serum 2.14 mg/dL (0.55-1.02); EST Glomerular Filtration Rate 24 mL/min (>60); Est Glom Filt Rate - Afr Amer 29 mL/min (>60); Estimated Creatinine Clearance 21.12 ml/min; Globulin 3.8 g/dL (2.2-4.2); Glucose 83 mg/dL (74-106); Lipase 153 U/L (73-393); Protein, Total 6.1 g/dL (6.4-8.2); Sodium Level 136 mmol/L (136-145)
[2019-07-02] MEDS: Morphine 4 MG/ML Syringe IV (15:06)
[2019-07-02] MEDS: 0.9% Normal Saline 1,000 ML 150 ML IV (15:06)
[2019-07-02] MEDS: Ondansetron 4 MG/2 ML Vial IV (15:06)
[2019-07-02 16:14] LABS: Bacteria 0 SEEN /hpf (None Seen); Mucous, Urine 0 SEEN /hpf (<or=2+); Red Blood Cells-Urine 0 SEEN /hpf (0-5); Squamous Epithelial Cells - UA 0 SEEN /hpf (5-10); White Blood Cells 0 SEEN /hpf (0-5)
[2019-07-02 16:21] LABS: Color, Urine Yellow (Yellow); Glucose, Dipstick Normal (Normal); Ketone-Dipstick Negative (Negative); Leukocyte Esterase-Dipstick Negative /ul (Negative); Nitrite-Dipstick Negative (Negative); Occult Blood-Urine Negative /ul (Negative); Protein-Dipstick 100 mg/dl (Negative); Urine Bilirubin Dipstick Negative (Negative); Urine Clarity Clear (Clear); Urine Urobilinogen Normal (Normal)
--- NOTE | 2019-07-02 16:48 | ED.DEP ---
ED Disposition - Plan for ED Patient: Disposition: Home or Assisted Living Instructions: VOMITING (5y-Adult) Prescriptions: Ondansetron [Zofran Odt] 4 mg PO Q8H PRN PRN #10 tab PRN Reason: Nausea Prescription Printed Referrals: Bartolo Smith Chi, MD [Primary Care Provider] - 3-5 Days if not improving Additional Instructions: Fluids and rest. Increase her diet slowly as tolerated. Follow-up with your doctor if not improving. Zofran as needed for nausea.
== END 2019-07-02 17:12 | disposition home or self-care (01) ==
PROVIDERS: Emergency Provider Emergency Medicine; Family Provider Family Medicine Geriatric Medicine; PCP Family Medicine Geriatric Medicine
DX: R11.2 Nausea with vomiting, unspecified (principal); E11.22 Type 2 diabetes mellitus with diabetic chronic kidney disease; N18.6 End stage renal disease; Z99.2 Dependence on renal dialysis; K80.20 Calculus of gallbladder without cholecystitis without obstruction; Z79.899 Other long term (current) drug therapy
CPT/HCPCS: 74176; 80048; 80076; 81001; 83690; 85025; 96361; 96374; 96375; 99283; J7030; A4216; J2405

== ENCOUNTER → 2019-07-07 16:09 | Outpatient (CLI) | payer MEDICARE, OTHER, SELFPAY ==
[2019-07-02 12:49] VITALS: BMI 32.4
[2019-07-07 16:24] LABS: Absolute Lymphocyte Count 0.85 X10^3/uL (0.83-4.51); Absolute Neutrophil Count 6.6 X10^3/uL (2.0-7.7); Basophil# 0.02 X10^3/uL; Basophil% 0.2 % (0-1); Eosinophil# 0.03 X10^3/uL; Eosinophils% 0.4 % (0-5); Hematocrit 35.2 % (37-47); Hemoglobin 11.5 g/dL (12.0-15.0); Lymphocyte # 0.85 X10^3/ul (4.0); Lymphocyte % 10.4 % (19-41); Mean Corp Hgb Conc 32.7 g/dL (32-36); Mean Corpuscular Hgb 29.3 pg (27.0-32.0); Mean Corpuscular Volume 89.8 fL (81-99); Monocyte# 0.59 X10^3/uL; Monocyte% 7.2 % (0-10); NRBC Flagged by Analyzer 0 % (0-5); Neutrophil # 6.61 X10^3/uL (2.7-7.7); Neutrophil % 81.1 % (47-70); Platelet Count 199 K/mm3 (150-450); RBC Distribution Width CV 14.6 % (11.6-14.6); RBC Distribution Width SD 47.2 fl (35.1-43.9); Red Blood Count 3.92 M/mm3 (4.2-5.4); White Blood Count 8.2 K/mm3 (4.4-11.0)
[2019-07-07 16:36] LABS: Amylase 62 U/L (25-115); Anion Gap 7 (5-15); BUN 17 mg/dL (7-18); BUN/Creat Ratio 6.9 RATIO (10-20); Calcium,Total 8.7 mg/dL (8.5-10.1); Chloride 96 mmol/L (98-107); Creatinine, Serum 2.45 mg/dL (0.55-1.02); EST Glomerular Filtration Rate 21 mL/min (>60); Est Glom Filt Rate - Afr Amer 25 mL/min (>60); Glucose 100 mg/dL (74-106); Lipase 156 U/L (73-393); Potassium 3.1 mmol/L (3.5-5.1); Sodium Level 134 mmol/L (136-145)
== END ==
PROVIDERS: Family Provider Family Medicine Geriatric Medicine; PCP Family Medicine Geriatric Medicine; Visit Provider Family Medicine Geriatric Medicine
DX: R10.9 Unspecified abdominal pain (principal); R87.89 Other abnormal findings in specimens from female genital organs
CPT/HCPCS: 36415; 80048; 82150; 83690; 85025

== ENCOUNTER 2019-07-09 15:59 | Emergency (ER) | payer MEDICARE, OTHER, SELFPAY ==
[2019-07-08 13:34] VITALS: BMI 32.4
[2019-07-09 16:00] VITALS: BP 107/58; PULSE 65; RESP 16; TEMP 36.9; O2SAT 99; BMI 30.4
--- NOTE | 2019-07-09 16:46 | ED.VIS.GEN ---
History of Present Illness Chief Complaint: Weakness Informant: Patient, Significant Other Onset: Month(s) - 1-2 Timing: Waxes and wanes Quality: pain Location: RUQ w/ radiation into right low back Current Severity: Moderate Maximum Severity: Severe Worsened by: unk Relieved by: nothing Associated Symptoms: n/v. Narrative: Patient was seen last week for abdominal pain and vomiting, diagnosed with a gallstone, has been states she is scheduled for surgery early next week with Dr. Briseno to get her gallbladder out. She has never had any abdominal surgeries in the past. Apparently there was a home health nurse to stop by today and was concerned about the patient's level of confusion and degree of symptoms which have been worse today, with regards to abdominal pain in the right upper quadrant and nausea/vomiting. Therefore, she was advised to come to the emergency department for reevaluation. states she has been confused off and on since she started having abdominal pain and vomiting 1 to 2 months ago. He states her level of confusion right now is not dissimilar to how it has been off and on recently. Patient is on hemodialysis, Sunday, , Sunday, her last dialysis was yesterday on Sunday and she has been compliant. - Past Medical History (1) Alzheimers disease Status: Chronic (2) Arthritis Status: Chronic (3) Asthma Status: Chronic (4) CHF (congestive heart failure) Status: Chronic (5) Chronic kidney disease Status: Chronic (6) Diabetes mellitus Status: Chronic (7) History of DVT (deep vein thrombosis) Status: Chronic (8) History of pulmonary embolism Status: Chronic (9) Hypercholesteremia Status: Chronic (10) Hypertension Status: Chronic (11) Hypothyroidism Status: Chronic (12) IBS (irritable bowel syndrome) Status: Chronic (13) Leg edema Status: Chronic (14) Lipodermatosclerosis Status: Chronic (15) Obstructive sleep apnea on CPAP Status: Chronic (16) Peripheral neuropathy Status: Chronic (17) Seasonal allergies Status: Chronic Past Medical History - Allergies and Home Meds Allergies/Adverse Reactions: Allergies exenatide [From [place]] Allergy (Intermediate, Verified 07/09/19 16:04) Unknown Sulfa (Sulfonamide Antibiotics) Allergy (Intermediate, Verified 07/09/19 16:04) Unknown Tetracyclines Allergy (Intermediate, Verified 07/09/19 16:04) Unknown Primary Care Physician: Bartolo Smith Chi, MD [Primary Care Provider] - Surgical History: - - The patient underwent open reduction and internal fixation of a right elbow fracture on March 24, 2019. She has also undergone a vein stripping procedure in the past, though the specific nature of the procedure is not known. She is a G2, P2 Ab0 Lives: Spouse/ Significant Other Smoking Status: Never smoker Alcohol: None - Family History Maternal Family History: Family History (Last Reviewed 07/08/19 @ 13:31 by Apurva Mckinley) Father Heart disease Mother Hypertension Family History: Reports: - - The patient's father at age of 74 with a history of myocardial infarction. Patient's mother at age of 82 with a history of heart disease. Review of Systems ROS: Unable to Obtain - limited due to confusion General: Reports: Malaise. Denies: Chills, Fever Cardiovascular: Denies: Chest pain, Palpitations Respiratory: Denies: Dyspnea, Cough, Dyspnea on exertion Gastrointestinal: Reports: Abdominal pain, Nausea, Vomiting. Denies: Diarrhea, Melena, Hematochezia Genitourinary: Denies: Dysuria, Hematuria, Frequency Musculoskeletal: Reports: Back pain, Swelling - BLE, chronic. Denies: Neck pain, Extremity Pain Skin: Reports: Wounds - both legs, chronic, wrapped and ok recently Neurological: Reports: - - confused more than usual. Denies: Headache, Weakness, Numbness Hematologic: Reports: Easy bruising, Easy bleeding Physical Exam Vital Signs/Narrative: Vital Signs Temp Pulse Resp BP Pulse Ox 07/09/19 16:00 98.5 F 65 16 107/58 L 99 Inital Vital Signs reviewed: Yes General: Well nourished, Well developed, No Acute Distress Head: Normocephalic, Atraumatic Eyes: Perrl, EOMI. Negative for: Scleral icterus ENT: Moist mucous membranes, No rhinorrhea Neck: Supple, Nontender Cardiovascular: Regular rate, Regular rhythm, No murmurs Respiratory: No distress, CTA bilaterally, Chest nontender Abdomen: Soft, Nondistended, Normal bowel sounds, Tender - RUQ only. Negative for: Guarding, Rebound tenderness, Greer's sign Back: Nontender, Normal Inspection. Negative for: CVA tenderness Extremities: Nontender, Edema - BLE 2-3+, symmetric Skin: Normal color, No rash, No Trauma. Negative for: Jaundice Neurological: Alert, Cranial nerves II-XII grossly intact, Normal Strength, Normal Sensation, Normal Gait, Confused - oriented to person Psychological: Normal affect, Normal Mood Diagnostic/Tx/Re-eval Impressions Brain CT 07/09/19 16:47 IMPRESSION: No acute intracranial abnormality. Chronic ischemic and atrophic changes. Electronically Signed: Tom Betancuri, at 17:25 EDT Tel , Service support , Gallbladder Ultrasound 07/09/19 16:47 IMPRESSION: No acute abdominal pathology identified. 4 mm anterior gallbladder wall echogenic focus, consistent with adherent stone, polyp, or artifact. Electronically Signed: Tom Betancuri, at 17:56 EDT Tel , Service support , 07/09/19 16:47 CT Head [Brain/Head without Contrast] [CT] Stat Gallbladder [US] Stat Laboratory Results 07/09/19 07/09/19 07/09/19 17:00 17:00 17:50 WBC 7.4 RBC 3.17 L Hgb 9.2 L Hct 28.7 L MCV 90.5 MCH 29.0 MCHC 32.1 RDW Std Deviation 49.2 H RDW Coeff of [place] 14.9 H Plt Count 192 MPV 9.5 Immature Gran % (Auto) 0.800 Neut % (Auto) 73.1 H Lymph % (Auto) 16.6 L [place] % (Auto) 8.9 Eos % (Auto) 0.3 Baso % (Auto) 0.3 Absolute Neuts (auto) 5.4 Absolute Lymphs (auto) 1.23 Nucleated RBC % 0 Sodium 137 Potassium 3.4 L Chloride 99 Carbon Dioxide 33.0 H Anion Gap 5 BUN 30 H Creatinine 1.89 H Estim Creat Clear Calc 25.93 Est GFR (MDRD) Af Amer 34 L Est GFR (MDRD) Non-Af 28 L BUN/Creatinine Ratio 15.9 Glucose 93 Calcium 8.4 L Total Bilirubin 0.60 AST 17 ALT 11 L Alkaline Phosphatase 113 Total Protein 5.6 L Albumin 2.1 L Globulin 3.5 Albumin/Globulin Ratio 0.6 L Lipase 139 Urine Color Yellow Urine Clarity Clear Urine pH 6.0 Ur Specific [place] 1.010 Urine Protein 100 H Urine Glucose (UA) Normal Urine Ketones 5 H Urine Occult Blood 10 H Urine Nitrite Negative Urine Bilirubin 1 H Urine Urobilinogen 1 H Ur Leukocyte Esterase 25 H Urine RBC 0 SEEN Urine WBC 0-5 SEEN Ur Squamous Epith Cells 0 SEEN Urine Bacteria 0 SEEN Urine Mucus 0 SEEN - Medical Decision Making Work-up really is unremarkable, there is no leukocytosis, no elevation of liver enzymes or lipase, she is not clinically jaundiced, gallbladder ultrasound shows an echogenic focus that appears to be adherent to the anterior aspect of the gallbladder wall but there is no signs of cholecystitis. Nausea is much better after Zofran and IV fluids, states she still has pain after morphine so she was given some GI medications for pain and after discussion with the he is comfortable with discharge home and close outpatient follow-up as planned already for surgery. There is nothing on the work-up to suggest she needs to be admitted for any emergent cholecystectomy. I see nothing else acute going on either. Symptom control for now. ED Disposition - Plan for ED Patient: Disposition: Home or Assisted Living Diagnosis: RUQ abdominal pain Instructions: Abdominal Pain Prescriptions: Hydrocodone Bitart/Apap 5-325 [[place] 5MG-325MG] 1 tab PO Q4H PRN PRN 2 Days #10 tab PRN Reason: Pain Prescription Printed Referrals: Bartolo Smith Chi, MD [Primary Care Provider] - 3-5 Days if not improving
--- NOTE | 2019-07-09 16:47 | US_ITS ---
STUDY: ABDOMINAL ULTRASOUND - RIGHT UPPER QUADRANT REASON FOR VISIT: Female, 69 years old. Right upper quadrant pain TECHNIQUE: Ultrasound evaluation of the right upper quadrant was performed with real-time and static leyva-scale imaging. TECHNICAL QUALITY: Adequate. COMPARISON: None. FINDINGS: Liver: The liver measures 16 cm. There is normal echogenicity of the liver. The bile ducts are within normal limits. There is hepatic color flow. The direction of portal flow is hepatopetal. There is no demonstrated mass lesion. Gallbladder: The gallbladder wall measures 3 mm. There is a negative sonographic Greer's sign. There is no pericholecystic fluid. There is an echogenic focus measuring 4 mm at the anterior gallbladder wall. Common Bile Duct (C.B.D.): The common bile duct measures 4 mm. Pancreas: Not visualized. Right Kidney: Normal size of the right kidney. The right kidney measures 9 cm. Normal renal cortex. Right renal cysts are present, the largest measuring 1.6 cm. There is no right hydronephrosis. US/Gallbladder IMPRESSION: No acute abdominal pathology identified. 4 mm anterior gallbladder wall echogenic focus, consistent with adherent stone, polyp, or artifact. Electronically Signed: Tom Pena, at 17:56 EDT Tel , Service support ,
--- NOTE | 2019-07-09 16:47 | CT_ITS ---
STUDY: CT BRAIN WITHOUT CONTRAST REASON FOR EXAM: Female, 69 years old. Weakness RADIATION DOSAGE (If Supplied By Facility): DLP = ( 1044.28 ) mGycm TECHNIQUE: Transaxial CT imaging of the brain was performed without administration of intravenous contrast material. Individualized dose optimization techniques were used for this CT. COMPARISON: CT head April 25, 2019 FINDINGS: There is no acute bleed or infarct. There are chronic ischemic and atrophic changes. The ventricles are normal in configuration. There is no hydrocephalus. The visualized paranasal sinuses are clear. The mastoid air cells are well aerated. There is no skull fracture. CT/Brain/Head without Contrast IMPRESSION: No acute intracranial abnormality. Chronic ischemic and atrophic changes. Electronically Signed: Tom Pena, at 17:25 EDT Tel , Service support ,
[2019-07-09] MEDS: 0.9% Normal Saline 1,000 ML 125 ML IV (17:02)
[2019-07-09] MEDS: Ondansetron 4 MG/2 ML Vial IV (17:03)
[2019-07-09] MEDS: Morphine 4 MG/ML Syringe IV (17:03)
[2019-07-09 17:04] VITALS: TEMP 36.9
[2019-07-09 17:24] LABS: Absolute Lymphocyte Count 1.23 X10^3/uL (0.83-4.51); Absolute Neutrophil Count 5.4 X10^3/uL (2.0-7.7); Basophil# 0.02 X10^3/uL; Basophil% 0.3 % (0-1); Eosinophil# 0.02 X10^3/uL; Eosinophils% 0.3 % (0-5); Hematocrit 28.7 % (37-47); Hemoglobin 9.2 g/dL (12.0-15.0); Lymphocyte # 1.23 X10^3/ul (4.0); Lymphocyte % 16.6 % (19-41); Mean Corp Hgb Conc 32.1 g/dL (32-36); Mean Corpuscular Volume 90.5 fL (81-99); Mean Platelet Vol. 9.5 fl (6.2-12.0); Monocyte# 0.66 X10^3/uL; Monocyte% 8.9 % (0-10); NRBC Flagged by Analyzer 0 % (0-5); Neutrophil # 5.41 X10^3/uL (2.7-7.7); Neutrophil % 73.1 % (47-70); Platelet Count 192 K/mm3 (150-450); RBC Distribution Width CV 14.9 % (11.6-14.6); RBC Distribution Width SD 49.2 fl (35.1-43.9); Red Blood Count 3.17 M/mm3 (4.2-5.4); White Blood Count 7.4 K/mm3 (4.4-11.0)
[2019-07-09 17:31] LABS: ALB/GLOB Ratio 0.6 RATIO (0.9-2.4); AST(SGOT) 17 U/L (15-37); Alanine Aminotransfer ALT/SGPT 11 U/L (13-56); Albumin, Serum 2.1 g/dL (3.2-5.0); Alkaline Phosphatase 113 U/L (45-117); Anion Gap 5 (5-15); BUN 30 mg/dL (7-18); BUN/Creat Ratio 15.9 RATIO (10-20); Calcium,Total 8.4 mg/dL (8.5-10.1); Chloride 99 mmol/L (98-107); Creatinine, Serum 1.89 mg/dL (0.55-1.02); EST Glomerular Filtration Rate 28 mL/min (>60); Est Glom Filt Rate - Afr Amer 34 mL/min (>60); Estimated Creatinine Clearance 25.93 ml/min; Globulin 3.5 g/dL (2.2-4.2); Glucose 93 mg/dL (74-106); Lipase 139 U/L (73-393); Potassium 3.4 mmol/L (3.5-5.1); Protein, Total 5.6 g/dL (6.4-8.2); Sodium Level 137 mmol/L (136-145)
[2019-07-09 17:58] LABS: Bacteria 0 SEEN /hpf (None Seen); Mucous, Urine 0 SEEN /hpf (<or=2+); Red Blood Cells-Urine 0 SEEN /hpf (0-5); Squamous Epithelial Cells - UA 0 SEEN /hpf (5-10)
[2019-07-09 18:03] LABS: Color, Urine Yellow (Yellow); Glucose, Dipstick Normal (Normal); Ketone-Dipstick 5 mg/dl (Negative); Leukocyte Esterase-Dipstick 25 /ul (Negative); Nitrite-Dipstick Negative (Negative); Occult Blood-Urine 10 /ul (Negative); Protein-Dipstick 100 mg/dl (Negative); Urine Clarity Clear (Clear); Urine Urobilinogen 1 mg/dl (Normal)
[2019-07-09 18:05] LABS: Urine Bilirubin Dipstick 1 mg/dL (Negative)
[2019-07-09 18:18] LABS: White Blood Cells 0-5 SEEN /hpf (0-5)
[2019-07-09] MEDS: Ketorolac 15 MG/ML Vial IV (19:37)
[2019-07-09] MEDS: Mag Hydrox/Al Hydrox/Simeth 30 ML UDC PO (19:37)
[2019-07-09 19:49] VITALS: BP 140/55; PULSE 50; O2SAT 100
[2019-07-10 17:52] LABS: Hemoglobin A1c 4.8 % (4.2-6.3)
== END 2019-07-09 19:48 | disposition home or self-care (01) ==
PROVIDERS: Emergency Provider Emergency Medicine; Family Provider Family Medicine Geriatric Medicine; PCP Family Medicine Geriatric Medicine
DX: R10.11 Right upper quadrant pain (principal); I13.0 Hypertensive heart and chronic kidney disease with heart failure and stage 1 through stage 4 chronic kidney disease, or unspecified chronic kidney disease; I50.9 Heart failure, unspecified; N18.9 Chronic kidney disease, unspecified; E11.22 Type 2 diabetes mellitus with diabetic chronic kidney disease; E11.40 Type 2 diabetes mellitus with diabetic neuropathy, unspecified; F02.80 Dementia in other diseases classified elsewhere, unspecified severity, without behavioral disturbance, psychotic disturbance, mood disturbance, and anxiety; G30.9 Alzheimer's disease, unspecified; J45.909 Unspecified asthma, uncomplicated; E03.9 Hypothyroidism, unspecified; G47.33 Obstructive sleep apnea (adult) (pediatric); Z86.718 Personal history of other venous thrombosis and embolism; Z86.711 Personal history of pulmonary embolism; Z79.51 Long term (current) use of inhaled steroids; Z79.899 Other long term (current) drug therapy; Z99.2 Dependence on renal dialysis
CPT/HCPCS: 70450; 76705; 80053; 81001; 83036; 83690; 85025; 96361; 96374; 96375; 99284; J7030; A4216; J2405

== ENCOUNTER → 2019-07-10 15:00 | Outpatient (CLI) | payer MEDICARE, OTHER, SELFPAY ==
[2019-07-08 13:34] VITALS: BMI 32.4
--- NOTE | 2019-07-09 09:38 | HP_ITS ---
Intake Vital Signs 07/08/19 Body Mass Index (BMI) 32.4 07/08/19 Height 5 ft 4 in 07/08/19 Weight: 189 lb 07/08/19 Body Mass Index (BMI) 32.4 07/08/19 Blood Pressure 95/66 07/08/19 Blood Pressure Location Lt brachial 07/08/19 Blood Pressure Position Sitting 07/08/19 Respiratory Rate 18 Intake Visit Reasons: Gallstones Chief Complaint: RASH - SENT FROM WOUND CENTER Manager [employer] Required: No Is patient in pain?: No Allergies exenatide [From Byetta] Allergy (Intermediate, Verified 07/08/19 13:33) Unknown Sulfa (Sulfonamide Antibiotics) Allergy (Intermediate, Verified 07/08/19 13:33) Unknown Tetracyclines Allergy (Intermediate, Verified 07/08/19 13:33) Unknown Medications Cholecalciferol (VIT D3) [Vitamin D3] 1,000 unit PO DAILY 01/05/15 [History Confirmed 07/08/19] albuterol sulfate HFA 90 mcg/actuation aerosol inhaler 2 puff INHALATION Q6H PRN #8.5 g 03/21/19 [Rx Confirmed 07/08/19] diltiazem CD 180 mg capsule,extended release 24 hr 180 mg PO DAILY 05/06/19 [History Confirmed 07/08/19] Acetaminophen [Tylenol] 325 mg PO Q6H PRN PRN 05/30/19 [History Confirmed 07/08/19] Levothyroxine [Synthroid] 75 mcg PO DAILY 05/30/19 [History Confirmed 07/08/19] Acetaminophen [Tylenol Tablet] 650 mg PO Q6H PRN PRN tab 06/05/19 [Rx Confirmed 07/08/19] Cefuroxime Axetil [Cefuroxime] 500 mg PO BID 07/02/19 [History Confirmed 07/08/19] Ondansetron HCl 4 mg PO Q8H PRN PRN 07/02/19 [History Confirmed 07/08/19] Ondansetron [Zofran Odt] 4 mg PO Q8H PRN PRN #10 tab 07/02/19 [Rx Confirmed 07/08/19] Polyethylene Glycol 3350 1 packet PO DAILY 07/02/19 [History Confirmed 07/08/19] PFSH Medical History Leg edema (Chronic) Venous ulcer of right leg (Chronic) Alzheimers disease (Chronic) Acute kidney injury (Acute) Rash and nonspecific skin eruption (Acute) Renal failure (Acute) Acute paranoia (Acute) Olecranon fracture (Acute) Morbid obesity with BMI of 50.0-59.9, adult (Chronic) Sleep apnea (Chronic) Skin ulcer (Chronic) Pneumonia (Chronic) Kidney failure (Chronic) Kidney disease (Chronic) IBS (irritable bowel syndrome) (Chronic) Hypertension (Chronic) Heart failure (Chronic) Diabetes (Chronic) Asthma (Chronic) Arthritis (Chronic) Seasonal allergies (Chronic) Surgical History History of elbow surgery (Acute) Family History Father Heart disease Mother Hypertension Social History (Updated 07/09/19 @ 09:38 by Earle Briseno MD) Smoking Status: Never smoker alcohol intake: never substance use type: does not use what type of physical activity do you participate in: none HPI HPI HPI: JEAN PAUL CÁRDENAS, is a 69 F who presents to the office today for HPI HPI Surgical H&P: Yes HPI: JEAN PAUL CÁRDENAS, is a 69 F who presents to the office today for right upper quadrant pain radiating to the back. Patient reports that for the last few weeks she is been having vomiting and nausea as well. She says the pain radiates to the back and right upper quadrant. She had CT scan which did show gallstones. ROS General General: No weight change or fatigue Cardio Cardiovascular: No murmur, pacemaker, heart disease, atrial fibrillation, high blood pressure, heart attack, heart stent, palpitations, shortness of breat with exertion or chest pain Psych Psychiatric: No depression or anxiety Resp Respiratory: No shortness of breath, No sleep apnea, No cough, No COPD, No asthma, No emphysema, No wheezing Gastro Gastrointestinal: Yes abdominal pain, Yes nausea or vomiting, No diarrhea, No constipation, No blood in stool, No acid reflux, No hemorrhoids, No ulcers, No gallbladder problem, No black,tarry stools Aron Hematologic: No blood thinners Exam Const General: cooperative Orientation: alert, oriented x3 Resp Effort & Inspection: normal respiratory effort Auscultation: clear to auscultation bilaterally Cardio Rate: regular rate Rhythm: regular rhythm Heart Sounds: no murmurs GI Inspection: non-distended Palpation: soft, tender in the RUQ Assessment & Plan Problems 1. Gallstone pancreatitis K85.10 2. Calculus of gallbladder without cholecystitis without obstruction K80.20 Plan The patient had CT scan which showed inflammation in the second and third portions of the duodenum with possible localized pancreatitis. Patient also had cholelithiasis. The patient recently had an emergency room visit which did show normal lipase. Recommend laparoscopic cholecystectomy to prevent any further issues with pancreatitis. If this does not resolve the situation she will need EGD. Patient also has renal failure and is dialysis dependent. Earle Briseno MD Pager: [facility] [address] [place] [address] Office: Coding Level of Care Code Off vis,new,level 3 Diagnoses Gallstone pancreatitis K85.10 Calculus of gallbladder without cholecystitis without obstruction K80.20 ??Cholelithiasis location: gallbladder ??Cholecystitis presence: without cholecystitis ??Biliary obstruction: without biliary obstruction 07/09/19 0938 <Electronically signed by Earle lau MD> Date _ Earle Briseno MD
[2019-07-10 14:38] VITALS: BP 90/55; PULSE 73; RESP 16; TEMP 37.3; O2SAT 99; BMI 29.4
--- NOTE | 2019-07-10 15:29 | SDCEKG_ITS ---
Test Reason : Blood Pressure : / mmHG Vent. Rate : 065 BPM Atrial Rate : 065 BPM P-R Int : 146 ms QRS Dur : 086 ms QT Int : 442 ms P-R-T Axes : 045 -07 017 degrees QTc Int : 459 ms Sinus rhythm with Possible Premature atrial complexes with Aberrant conduction Otherwise normal ECG Confirmed by TANYA CAUSEY, ELISABETH ([id number]), brands editor BUCK NAVARRETE ([id number]) on 07/14/2019 1:30:14 PM Referred By: Earle Briseno Confirmed By:RITESH MARTÍNEZ MD
== END ==
PROVIDERS: Family Provider Family Medicine Geriatric Medicine; PCP Family Medicine Geriatric Medicine; Referring Provider Surgery; Visit Provider Surgery
DX: Z01.818 Encounter for other preprocedural examination (principal); K85.10 Biliary acute pancreatitis without necrosis or infection; K80.20 Calculus of gallbladder without cholecystitis without obstruction
CPT/HCPCS: 93005

== ENCOUNTER → 2019-07-10 | Outpatient (CLI) | payer MEDICARE, OTHER, SELFPAY ==
[2019-07-02 12:49] VITALS: BMI 32.4
[2019-07-09 16:00] VITALS: BMI 30.4
--- NOTE | 2019-07-10 13:31 | BD_ITS ---
STUDY: DUAL ENERGY X-RAY ABSORPTIOMETRY / DXA REASON FOR EXAM: Female, 69 years old. The patient is postmenopausal. Loss of height. TECHNIQUE: Bone Mineral Density (BMD) measurements of lumbar spine and bilateral hips were obtained. COMPARISON: None. FINDINGS: Lumbar Spine (L1-L4): g/cm2 (1.156) / T-score (-0.4) / Z-score (1.3) Findings are suggestive of normal bone density with a low fracture risk. Left Femur Total: g/cm2 (0.614) / T-score (-3.1) / Z-score (-1.7) Left Femoral Neck: g/cm2 (0.564) / T-score (-3.4) / Z-score (-1.7) Right Femur Total: g/cm2 (0.634) / T-score (-3.0) / Z-score (-1.5) Right Femoral Neck: g/cm2 (0.652) / T-score (-2.8) / Z-score (-1.1) BD/Dexa Bone Density Study IMPRESSION: The patient is considered osteoporotic as outlined below according to World Sina Organization (WHO) criteria with a high fracture risk. Reference Information: The T-score is the number of standard deviations above or below the standard which is normal for young adults at their peak bone mineral density. The World Health Organization (WHO) interprets the T-scores as follows: Above -1 Normal bone density Between -1 and -2.5 Osteopenia Equal to / or below -2.5 Osteoporosis As a practical clinical guideline, osteopenia may be graded as follows: Mild -1 through -1.5 Moderate -1.6 through -2.0 Severe -2.1 through -2.4 The Z-score is the number of standard deviations above or below age-matched controls. A Z-score of less than -1.5 would be considered abnormal. References: 1. NIH Osteoporosis and Related Bone Diseases http://www.osteo.org 2. International Society for Clinical Densitometry http://www.iscd.org 3. National Osteoporosis Foundation http://www.nof.org Electronically Signed: [place], at 15:19 EDT , Service support ,
== END | disposition home or self-care (01) ==
LOC: OPBD 13:15
PROVIDERS: Family Provider Family Medicine Geriatric Medicine; PCP Family Medicine Geriatric Medicine; Visit Provider Family Medicine Geriatric Medicine
DX: Z78.0 Asymptomatic menopausal state (principal)
CPT/HCPCS: 77080; 93005

== ENCOUNTER 2019-07-15 11:45 | Outpatient (RCR) | payer MEDICARE, OTHER, SELFPAY ==
[2019-06-03 15:45] VITALS: BMI 35.4
[2019-06-26 01:03] VITALS: BP 162/74; PULSE 89; RESP 16; TEMP 36.8
[2019-07-08 11:29] VITALS: BP 113/60; PULSE 110; RESP 16; TEMP 36.7; BMI 32.4
--- NOTE | 2019-07-08 12:10 | PCM.WC.HP ---
(1) Renal failure Status: Acute Current Visit: Yes Code(s): N19 - Unspecified kidney failure (2) Leg edema Status: Chronic Current Visit: No Code(s): R60.0 - Localized edema (3) Venous ulcer of right leg Status: Chronic Current Visit: No Code(s): I83.019 - Varicose veins of right lower extremity with ulcer of unspecified site; L97.919 - Non-pressure chronic ulcer of unspecified part of right lower leg with unspecified severity (4) Alzheimers disease Status: Chronic Current Visit: No Code(s): G30.9 - Alzheimer's disease, unspecified; F02.80 - Dementia in other diseases classified elsewhere without behavioral disturbance (5) Morbid obesity with BMI of 50.0-59.9, adult Status: Chronic Current Visit: No Code(s): E66.01 - Morbid (severe) obesity due to excess calories; Z68.43 - Body mass index (BMI) 50-59.9, adult (6) Sleep apnea Status: Chronic Current Visit: No Qualifiers: Code(s): G47.30 - Sleep apnea, unspecified (7) Kidney failure Status: Chronic Current Visit: No Qualifiers: Code(s): N19 - Unspecified kidney failure (8) IBS (irritable bowel syndrome) Status: Chronic Current Visit: No Code(s): K58.9 - Irritable bowel syndrome without diarrhea (9) Hypertension Status: Chronic Current Visit: No Code(s): I10 - Essential (primary) hypertension (10) Heart failure Status: Chronic Current Visit: No Code(s): I50.9 - Heart failure, unspecified (11) Diabetes Status: Chronic Current Visit: No Code(s): E11.9 - Type 2 diabetes mellitus without complications Comment: on no medication (12) Asthma Status: Chronic Current Visit: No Code(s): J45.909 - Unspecified asthma, uncomplicated (13) Arthritis Status: Chronic Current Visit: No Code(s): M19.90 - Unspecified osteoarthritis, unspecified site (14) Seasonal allergies Status: Chronic Current Visit: No Code(s): J30.2 - Other seasonal allergic rhinitis (15) Leg swelling Status: Chronic Current Visit: No Code(s): M79.89 - Other specified soft tissue disorders (16) Hyperpigmentation of skin Status: Chronic Current Visit: No Code(s): L81.9 - Disorder of pigmentation, unspecified (17) Lipodermatosclerosis Status: Chronic Current Visit: No Qualifiers: Code(s): I83.10 - Varicose veins of unspecified lower extremity with inflammation (18) Venous hypertension, chronic, with ulcer Status: Chronic Current Visit: No Code(s): I87.319 - Chronic venous hypertension (idiopathic) with ulcer of unspecified lower extremity (19) Chronic venous insufficiency Status: Chronic Current Visit: No (20) Morbid obesity with BMI of 50.0-59.9, adult Status: Chronic Current Visit: No Code(s): E66.01 - Morbid (severe) obesity due to excess calories; Z68.43 - Body mass index (BMI) 50-59.9, adult (21) Obstructive sleep apnea on CPAP Status: Chronic Current Visit: No Code(s): G47.33 - Obstructive sleep apnea (adult) (pediatric) (22) Peripheral neuropathy Status: Chronic Current Visit: No Code(s): G62.9 - Polyneuropathy, unspecified (23) Chronic kidney disease Status: Chronic Current Visit: No Qualifiers: Code(s): N18.9 - Chronic kidney disease, unspecified (24) Hypothyroidism Status: Chronic Current Visit: No Qualifiers: Code(s): E03.9 - Hypothyroidism, unspecified (25) Hypercholesteremia Status: Chronic Current Visit: No Code(s): E78.00 - Pure hypercholesterolemia, unspecified (26) Diabetes mellitus Status: Chronic Current Visit: No Code(s): E11.9 - Type 2 diabetes mellitus without complications (27) CHF (congestive heart failure) Status: Chronic Current Visit: No Code(s): I50.9 - Heart failure, unspecified (28) Postphlebetic syndrome with ulcer Status: Chronic Current Visit: No Qualifiers: Code(s): I87.019 - Postthrombotic syndrome with ulcer of unspecified lower extremity (29) History of pulmonary embolism Status: Chronic Current Visit: No Code(s): Z86.711 - Personal history of pulmonary embolism (30) History of DVT (deep vein thrombosis) Status: Chronic Current Visit: No Code(s): Z86.718 - Personal history of other venous thrombosis and embolism (31) Asthma Status: Chronic Current Visit: No Qualifiers: Code(s): J45.909 - Unspecified asthma, uncomplicated History of Present Illness Date of Service: 07/08/19 Chief Complaint: Bilateral lower extremity swelling and edema with bilateral, distal lower extremity ulcerations History of Wound: This is a 69-year-old female who presented with severe swelling and edema in both lower extremities, associated with ulcerations bilaterally. Patient has had chronic problems in her lower extremities, and presented recently with acute exacerbations. She has chronic swelling and edema, as well as chronic hyperpigmentation and lipodermatosclerosis bilaterally. In recent months, the patient has developed blistering and superficial ulcerations and excoriations, with a great deal of exudative drainage from her lower extremities bilaterally. Patient claims to be fairly active, though sits a great deal each day. She sleeps in a chair. She does not elevate her legs to heart level or higher. This is despite having been treated for similar problems in the past, where she was advised to elevate her lower extremities, avoid idle standing and sitting, to remain active, to maintain appropriate weight, and to use adequate compression to her lower extremities bilaterally. She has previously obtained CircAid compression garments for daily use. These recommended measures have not been observed. The patient has had previous venous ulcerations in the lower extremities in the past. She has undergone a vein stripping in the right lower extremity remotely, though the specific procedure is not known. She also has a history of deep vein thrombosis and pulmonary embolism in 2012, which was nearly fatal. The patient is obese. She has severe hyperpigmentation, hemosiderin staining, and lipodermatosclerosis in both lower extremities involving the gaiter areas. Patient was recently hospitalized for 1 week at [facility] and treatment for kidney failure. During the course of her hospitalization, a dialysis catheter was inserted, and hemodialysis was initiated. Patient subsequently was transferred to a detention, where she remained for an additional 20 days. She has now returned home, and is living with her . . The patient has previously undergone a noninvasive lower extremity arterial study in the past. The noninvasive lower extremity arterial study was normal in the left lower extremity, with triphasic Doppler waveforms at ankle level on the left, and a normal ankle-brachial index and normal digital-brachial index. Past Medical History Past Medical History: Chronic Problems (Last Reviewed 05/06/19 @ 09:43 by Ba Montana DO) Leg edema (Chronic) Venous ulcer of right leg (Chronic) Alzheimers disease (Chronic) Morbid obesity with BMI of 50.0-59.9, adult (Chronic) Sleep apnea (Chronic) Skin ulcer (Chronic) Pneumonia (Chronic) Kidney failure (Chronic) Kidney disease (Chronic) IBS (irritable bowel syndrome) (Chronic) Hypertension (Chronic) Heart failure (Chronic) Diabetes (Chronic) on no medication Asthma (Chronic) Arthritis (Chronic) Seasonal allergies (Chronic) Leg swelling (Chronic) Hyperpigmentation of skin (Chronic) Lipodermatosclerosis (Chronic) Venous ulcer of left leg (Chronic) Venous hypertension, chronic, with ulcer (Chronic) Chronic venous insufficiency (Chronic) Morbid obesity with BMI of 50.0-59.9, adult (Chronic) Obstructive sleep apnea on CPAP (Chronic) Obesity (Chronic) Peripheral neuropathy (Chronic) Chronic kidney disease (Chronic) Hypothyroidism (Chronic) Hypercholesteremia (Chronic) Diabetes mellitus (Chronic) CHF (congestive heart failure) (Chronic) Postphlebetic syndrome with ulcer (Chronic) History of pulmonary embolism (Chronic) History of DVT (deep vein thrombosis) (Chronic) Asthma (Chronic) Surgical History: - - The patient underwent open reduction and internal fixation of a right elbow fracture on March 24, 2019. She has also undergone a vein stripping procedure in the past, though the specific nature of the procedure is not known. She is a G2, P2 Ab0 Allergies/Adverse Reactions: Allergies exenatide [From Byetta] Allergy (Intermediate, Verified 07/02/19 12:48) Unknown Sulfa (Sulfonamide Antibiotics) Allergy (Intermediate, Verified 07/02/19 12:48) Unknown Tetracyclines Allergy (Intermediate, Verified 07/02/19 12:48) Unknown Home Medications: Ambulatory Orders Medication Instructions Recorded Cholecalciferol (VIT D3) [Vitamin 1,000 unit PO DAILY 01/05/15 D3] albuterol sulfate HFA 90 2 puff INHALATION Q6H PRN #8.5 g 03/21/19 mcg/actuation aerosol inhaler diltiazem CD 180 mg 180 mg PO DAILY 05/06/19 capsule,extended release 24 hr Acetaminophen [Tylenol] 325 mg PO Q6H PRN PRN 05/30/19 Levothyroxine [Synthroid] 75 mcg PO DAILY 05/30/19 Acetaminophen [Tylenol Tablet] 650 mg PO Q6H PRN PRN tab 06/05/19 Cefuroxime Axetil [Cefuroxime] 500 mg PO BID 07/02/19 Ondansetron HCl 4 mg PO Q8H PRN PRN 07/02/19 Ondansetron [Zofran Odt] 4 mg PO Q8H PRN PRN #10 tab 07/02/19 Polyethylene Glycol 3350 1 packet PO DAILY 07/02/19 - Family History Maternal Family History: Family History (Last Reviewed 05/06/19 @ 09:43 by Ba Montana DO) Father Heart disease Mother Hypertension - - The patient's father at age of 74 with a history of myocardial infarction. Patient's mother at age of 82 with a history of heart disease. Lives: Spouse/ Significant Other Smoking Status: Never smoker Tobacco Use: Non-smoker Alcohol: None Drugs: None Review of Systems Constitutional: Denies: Chills, Fever, Weight Change Eyes: Denies: Pain, Vision Change HEENT: Denies: Difficulty Hearing, Difficulty Swallowing, Sinus Congestion Cardiovascular: Denies: Chest Pain, Palpitations Respiratory: Denies: Cough, Shortness of Breath Gastrointestinal: Denies: Diarrhea, Nausea, Vomiting Genitourinary: Denies: Dysuria, Hematuria Endocrine: Denies: Heat/ Cold Intolerance, Polydipsia, Polyuria Hematologic/ Lymphatic: Denies: Easy Bruising, Easy Bleeding - Physical Exam Vital Signs Temp Pulse Resp BP 98.0 F 110 H 16 113/60 07/08/19 11:29 07/08/19 11:29 07/08/19 11:29 07/08/19 11:29 General: Alert, Oriented x3, Cooperative, No apparent distress, Well developed, Well nourished HEENT: Atraumatic, PERRLA, EOMI, Normocephalic Oral: Moist Mucosa Neck: No JVD Lungs: Clear to auscultation, Normal air movement, No rhonchi, No wheeze, No rales Cardiovascular: Regular Rhythm, Normal S1, Normal S2, - - Hemodialysis catheter is noted in the right clavicular area, with occlusive dressing in place. Abdomen: Soft, Non Tender, Non-Distended, Obese Extremities: No clubbing, No cyanosis, No Calf Tenderness, - - Only minimal swelling and edema is noted in the patient's lower extremities. Diffuse hyperpigmentation and lipodermatosclerosis are noted bilaterally in the patient's lower extremities, particularly in the gaiter areas. 2 ulcerations are noted on the distal right lower extremity, one located on the right anterior calf, and the other on the right lateral calf. There is no sign of infection or cellulitis. There is evidence of granulation tissue. There is a moderate amount of bioburden. Dimensions are documented elsewhere. Skin: No rashes Wound Measurements and Assessment WC - Nurse 1 - General Ulcer Measurement Start: 07/08/19 11:29 Freq: Status: Active Protocol: Activity Type Activity Date Activity User E-Sign Co-Sign Detail Recorded Client Recorded Date Recorded By Document 07/08/19 11:29 BS [id number] 07/08/19 11:39 BS 07/08/19 11:29 Wound Center Nurse 1 [Ulcer Assessment] #4 R wilkins -Combined with other wound No -Current Size (cm) - Length 4.2 -Current Size (cm) - Width 2.7 -Current Size (cm) - Depth 0.1 -Total Square Cm 11.34 -Date of Last Picture (Recall this 07/08/19 field) -Photo Taken Yes -Epithelialization Medium 34-66% -Tunneling No -Classification - Thickness Full Thickness without Exposed Support Structure -Exudate Amt Medium -Exudate Type Serosanguineous -Texture (Kelsea-wound Skin Appearance) Assessed, Localized Edema -Color ([place]elsea-wound Skin Appearance) Assessed, Hemosiderin Staining -Temperature ([place]else[place]-wound Skin No Abnormality Appearance) (Pt Warm) -Tenderness on Palpation ([place]elsea-wound No Skin Appearance) -Ulcer Cleansing Soap and water -Foul Odor after Cleansing No -Anesthetic Used 5% Lidocaine Gel #3 R lateral -Combined with other wound No -Current Size (cm) - Length 4.8 -Current Size (cm) - Width 2.4 -Current Size (cm) - Depth 0.1 -Total Square Cm 11.52 -Date of Last Picture (Recall this 07/08/19 field) -Photo Taken Yes -Epithelialization Medium 34-66% -Tunneling No -Classification - Thickness Full Thickness without Exposed Support Structure -Exudate Amt Medium -Exudate Type Serosanguineous -Texture (Kelsea-wound Skin Appearance) Assessed, Localized Edema -Moisture ([place]elsea-wound Skin Appearance Dry/Scaly ) -Color (Kelsea-wound Skin Appearance) Assessed, Hemosiderin Staining -Temperature ([place]elsea-wound Skin No Abnormality Appearance) (Pt Warm) -Tenderness on Palpation (Kelsea-wound No Skin Appearance) -Ulcer Cleansing Soap and water -Foul Odor after Cleansing No -Anesthetic Used 5% Lidocaine Gel [Edema Assessment] -Lower Limb Edema Present Yes -Point of measurement (cm from the 33.0 medial instep) -Point of Measurement (cm from the 22.5 medial instep) -Point of measurement (cm from the 35.7 medial instep) -Point of Measurement (cm from the 22.9 medial instep) Musculoskeletal: Muscle Wasting Neurological: Cranial nerves II-XII grossly intact, Neuro grossly intact Psych/Mental Status: Normal Affect, Appropriate, Alert and oriented to time, place, person, mood and affect Debridement Note Laterality: Right - Calf Type of Debridement: Excisional debridement Anesthesia Used: 5% Lidocaine Gel Depth: Down to and including healthy tissue, in the subcutaneous layer Percentage of wound debrided: 100 Instrument Used: 5mm curette Severity: Fat Layer Exposed Amount of bleeding with debridement: Mild Bleeding Controlled with: Compression and gauze Patient tolerated procedure well Assessment/Plan Active Problems (Last Reviewed 05/06/19 @ 09:43 by Ba Montana DO) Renal failure (Acute) Assessment: This is a 69-year-old morbidly obese female with severe swelling and edema in her lower extremities, which has developed into multiple superficial open ulcerations and excoriations. It appears as though her symptoms are related to her lifestyle habits. She and her have been advised to elevate her lower extremities as much as possible. She is to sleep on a flat mattress at night. She is to elevate her lower extremities as much as possible. Elevation is to be to heart level, or higher. This is to be achieved even during daytime hours. The patient is to avoid idle standing and sitting. Activity has been encouraged. Weight loss has been strongly encouraged. We are to continue with compression to the lower extremities as well. We are to continue the use of an Unna boot to the left lower extremity. This will be changed twice weekly. On the right lower extremity, we are to use Jeannine topically to each of the 2 ulcerations, and a 3M 2 layer compression wrap in the right lower extremity, which will be changed twice weekly. Compliance issues have been a factor in the past, given the patient's Alzheimer's dementia and her inability to cooperate with recommended treatment measures. Patient's is attempting to seek the resources necessary to manage his , and home health nursing is now involved. Patient has been advised to take a well-balanced diet, and to optimize her glycemic control. Plan: A lengthy discussion has been undertaken with the patient and her as to the appropriate conservative treatment measures. The patient is to elevate her lower extremities as much as possible. She has been encouraged to sleep on a flat mattress at night. She has been encouraged to elevate her lower extremities much as possible, even during daytime hours. Elevation is to be to heart level, or higher. She has been discouraged from prolonged idle sitting. Activity has been encouraged. Weight loss has been also encouraged. We are to continue compression of the lower extremities by means of an Unna boot to the left lower extremity, and 3M 2 layer compression wrap to the right lower extremity, using Jeannine topically to the wounds on the right lower extremity. The patient will follow-up on an outpatient basis for reevaluation in 1 week. She has been encouraged to optimize her nutritional intake. She has also been advised to optimize her glycemic control. Influenza vaccine was not administered today. The patient is not a smoker. She weighs 200 pounds. She stands 5 feet 6 inches tall. Her BMI is 32.3. This places her in a class I obesity category. Weight loss has been recommended, and collaboration with her primary care physician in this regard has been advised.
[2019-07-15 11:53] VITALS: BP 96/44; PULSE 86; RESP 18; TEMP 37.4; BMI 32.4
--- NOTE | 2019-07-15 12:10 | HP.PCM_ITS ---
(1) Renal failure Status: Acute Current Visit: Yes Code(s): N19 - Unspecified kidney failure (2) Leg edema Status: Chronic Current Visit: No Code(s): R60.0 - Localized edema (3) Venous ulcer of right leg Status: Chronic Current Visit: No Code(s): I83.019 - Varicose veins of right lower extremity with ulcer of unspecified site; L97.919 - Non-pressure chronic ulcer of unspecified part of right lower leg with unspecified severity (4) Alzheimers disease Status: Chronic Current Visit: No Code(s): G30.9 - Alzheimer's disease, unspecified; F02.80 - Dementia in other diseases classified elsewhere without behavioral disturbance (5) Morbid obesity with BMI of 50.0-59.9, adult Status: Chronic Current Visit: No Code(s): E66.01 - Morbid (severe) obesity due to excess calories; Z68.43 - Body mass index (BMI) 50-59.9, adult (6) Sleep apnea Status: Chronic Current Visit: No Qualifiers: Code(s): G47.30 - Sleep apnea, unspecified (7) Kidney failure Status: Chronic Current Visit: No Qualifiers: Code(s): N19 - Unspecified kidney failure (8) IBS (irritable bowel syndrome) Status: Chronic Current Visit: No Code(s): K58.9 - Irritable bowel syndrome without diarrhea (9) Hypertension Status: Chronic Current Visit: No Code(s): I10 - Essential (primary) hypertension (10) Heart failure Status: Chronic Current Visit: No Code(s): I50.9 - Heart failure, unspecified (11) Diabetes Status: Chronic Current Visit: No Code(s): E11.9 - Type 2 diabetes mellitus without complications Comment: on no medication (12) Asthma Status: Chronic Current Visit: No Code(s): J45.909 - Unspecified asthma, uncomplicated (13) Arthritis Status: Chronic Current Visit: No Code(s): M19.90 - Unspecified osteoarthritis, unspecified site (14) Seasonal allergies Status: Chronic Current Visit: No Code(s): J30.2 - Other seasonal allergic rhinitis (15) Leg swelling Status: Chronic Current Visit: No Code(s): M79.89 - Other specified soft tissue disorders (16) Hyperpigmentation of skin Status: Chronic Current Visit: No Code(s): L81.9 - Disorder of pigmentation, unspecified (17) Lipodermatosclerosis Status: Chronic Current Visit: No Qualifiers: Code(s): I83.10 - Varicose veins of unspecified lower extremity with inflammation (18) Venous hypertension, chronic, with ulcer Status: Chronic Current Visit: No Code(s): I87.319 - Chronic venous hypertension (idiopathic) with ulcer of unspecified lower extremity (19) Chronic venous insufficiency Status: Chronic Current Visit: No (20) Morbid obesity with BMI of 50.0-59.9, adult Status: Chronic Current Visit: No Code(s): E66.01 - Morbid (severe) obesity due to excess calories; Z68.43 - Body mass index (BMI) 50-59.9, adult (21) Obstructive sleep apnea on CPAP Status: Chronic Current Visit: No Code(s): G47.33 - Obstructive sleep apnea (adult) (pediatric) (22) Peripheral neuropathy Status: Chronic Current Visit: No Code(s): G62.9 - Polyneuropathy, unspecified (23) Chronic kidney disease Status: Chronic Current Visit: No Qualifiers: Code(s): N18.9 - Chronic kidney disease, unspecified (24) Hypothyroidism Status: Chronic Current Visit: No Qualifiers: Code(s): E03.9 - Hypothyroidism, unspecified (25) Hypercholesteremia Status: Chronic Current Visit: No Code(s): E78.00 - Pure hypercholesterolemia, unspecified (26) Diabetes mellitus Status: Chronic Current Visit: No Code(s): E11.9 - Type 2 diabetes mellitus without complications (27) CHF (congestive heart failure) Status: Chronic Current Visit: No Code(s): I50.9 - Heart failure, unspecified (28) Postphlebetic syndrome with ulcer Status: Chronic Current Visit: No Qualifiers: Code(s): I87.019 - Postthrombotic syndrome with ulcer of unspecified lower extremity (29) History of pulmonary embolism Status: Chronic Current Visit: No Code(s): Z86.711 - Personal history of pulmonary embolism (30) History of DVT (deep vein thrombosis) Status: Chronic Current Visit: No Code(s): Z86.718 - Personal history of other venous thrombosis and embolism (31) Asthma Status: Chronic Current Visit: No Qualifiers: Code(s): J45.909 - Unspecified asthma, uncomplicated History of Present Illness Date of Service: 07/15/19 Chief Complaint: Bilateral lower extremity swelling and edema with bilateral, distal lower extremity ulcerations History of Wound: This is a 69-year-old female who presented with severe swelling and edema in both lower extremities, associated with ulcerations bilaterally. Patient has had chronic problems in her lower extremities, and presented recently with acute exacerbations. She has chronic swelling and edema, as well as chronic hyperpigmentation and lipodermatosclerosis bilaterally. In recent months, the patient has developed blistering and superficial ulcerations and excoriations, with a great deal of exudative drainage from her lower extremities bilaterally. Patient claims to be fairly active, though sits a great deal each day. She sleeps in a chair. She does not elevate her legs to heart level or higher. This is despite having been treated for similar problems in the past, where she was advised to elevate her lower extremities, avoid idle standing and sitting, to remain active, to maintain appropriate weight, and to use adequate compression to her lower extremities bilaterally. She has previously obtained CircAid compression garments for daily use. These recommended measures have not been observed. The patient has had previous venous ulcerations in the lower extremities in the past. She has undergone a vein stripping in the right lower extremity remotely, though the specific procedure is not known. She also has a history of deep vein thrombosis and pulmonary embolism in 2012, which was nearly fatal. The patient is obese. She has severe hyperpigmentation, hemosiderin staining, and lipodermatosclerosis in both lower extremities involving the gaiter areas. Patient was recently hospitalized for [address] [facility] and treatment for kidney failure. During the course of her hospitalization, a dialysis catheter was inserted, and hemodialysis was initiated. Patient subsequently was transferred to a long term, where she remained for an additional 20 days. She has now returned home, and is living with her . . The patient has previously undergone a noninvasive lower extremity arterial study in the past. The noninvasive lower extremity arterial study was normal in the left lower extremity, with triphasic Doppler waveforms at ankle level on the left, and a normal ankle-brachial index and normal digital-brachial index. Past Medical History Past Medical History: Chronic Problems (Last Reviewed 07/08/19 @ 13:31 by Apurva Mckinley) Leg edema (Chronic) Venous ulcer of right leg (Chronic) Alzheimers disease (Chronic) Morbid obesity with BMI of 50.0-59.9, adult (Chronic) Sleep apnea (Chronic) Skin ulcer (Chronic) Pneumonia (Chronic) Kidney failure (Chronic) Kidney disease (Chronic) IBS (irritable bowel syndrome) (Chronic) Hypertension (Chronic) Heart failure (Chronic) Diabetes (Chronic) on no medication Asthma (Chronic) Arthritis (Chronic) Seasonal allergies (Chronic) Leg swelling (Chronic) Hyperpigmentation of skin (Chronic) Lipodermatosclerosis (Chronic) Venous ulcer of left leg (Chronic) Venous hypertension, chronic, with ulcer (Chronic) Chronic venous insufficiency (Chronic) Morbid obesity with BMI of 50.0-59.9, adult (Chronic) Obstructive sleep apnea on CPAP (Chronic) Obesity (Chronic) Peripheral neuropathy (Chronic) Chronic kidney disease (Chronic) Hypothyroidism (Chronic) Hypercholesteremia (Chronic) Diabetes mellitus (Chronic) CHF (congestive heart failure) (Chronic) Postphlebetic syndrome with ulcer (Chronic) History of pulmonary embolism (Chronic) History of DVT (deep vein thrombosis) (Chronic) Asthma (Chronic) Surgical History: - - The patient underwent open reduction and internal fixation of a right elbow fracture on March 24, 2019. She has also undergone a vein stripping procedure in the past, though the specific nature of the procedure is not known. She is a G2, P2 Ab0 Allergies/Adverse Reactions: Allergies exenatide [From Byetta] Allergy (Intermediate, Verified 07/10/19 14:29) Unknown Sulfa (Sulfonamide Antibiotics) Allergy (Intermediate, Verified 07/10/19 14:29) Unknown Tetracyclines Allergy (Intermediate, Verified 07/10/19 14:29) Unknown Home Medications: Ambulatory Orders Medication Instructions Recorded Cholecalciferol (VIT D3) [Vitamin 1,000 unit PO DAILY 01/05/15 D3] albuterol sulfate HFA 90 2 puff INHALATION Q6H PRN #8.5 g 03/21/19 mcg/actuation aerosol inhaler diltiazem CD 180 mg 180 mg PO DAILY 05/06/19 capsule,extended release 24 hr Levothyroxine [Synthroid] 75 mcg PO DAILY 05/30/19 Acetaminophen [Tylenol Tablet] 650 mg PO Q6H PRN PRN tab 06/05/19 Cefuroxime Axetil [Cefuroxime] 500 mg PO BID 07/02/19 Ondansetron [Zofran Odt] 4 mg PO Q8H PRN PRN #10 tab 07/02/19 Polyethylene Glycol 3350 1 packet PO DAILY PRN 07/02/19 - Family History Maternal Family History: Family History (Last Reviewed 07/08/19 @ 13:31 by Apurva Mckinley) Father Heart disease Mother Hypertension - - The patient's father at age of 74 with a history of myocardial infarction. Patient's mother at age of 82 with a history of heart disease. Lives: Spouse/ Significant Other Smoking Status: Never smoker Tobacco Use: Non-smoker Alcohol: None Drugs: None Review of Systems Constitutional: Denies: Chills, Fever, Weight Change Eyes: Denies: Pain, Vision Change HEENT: Denies: Difficulty Hearing, Difficulty Swallowing, Sinus Congestion Cardiovascular: Denies: Chest Pain, Palpitations Respiratory: Denies: Cough, Shortness of Breath Gastrointestinal: Denies: Diarrhea, Nausea, Vomiting Genitourinary: Denies: Dysuria, Hematuria Endocrine: Denies: Heat/ Cold Intolerance, Polydipsia, Polyuria Hematologic/ Lymphatic: Denies: Easy Bruising, Easy Bleeding - Physical Exam Vital Signs Temp Pulse Resp BP 99.3 F H 86 18 96/44 L 07/15/19 11:53 07/15/19 11:53 07/15/19 11:53 07/15/19 11:53 General: Alert, Oriented x3, Cooperative, No apparent distress, Well developed, Well nourished HEENT: Atraumatic, PERRLA, EOMI, Normocephalic Oral: Moist Mucosa Neck: No JVD Lungs: Normal air movement Abdomen: Non-Distended, Obese Extremities: No clubbing, No cyanosis, No Calf Tenderness, - - Slight swelling and edema persists in the patient's lower extremities bilaterally. Chronic skin changes are noted, namely hyperpigmentation and lipodermatosclerosis in the gaiter areas bilaterally. The ulcerations persist in the distal right lower extremity, located on the right anterior tibial surface and on the right lateral calf. Each of the 2 ulcerations is generally pink and healthy in appearance, with the presence of active granulation tissue. Dimensions are documented elsewhere. There is no sign of infection or cellulitis. There is a small amount of bioburden. Wound Measurements and Assessment WC - Nurse 1 - General Ulcer Measurement Start: 07/08/19 11:29 Freq: Status: Active Protocol: Activity Type Activity Date Activity User E-Sign Co-Sign Detail Recorded Client Recorded Date Recorded By Document 07/15/19 11:53 MW [id number] 07/15/19 11:58 MW 07/15/19 11:53 Wound Center Nurse 1 [Ulcer Assessment] #4 R wilkins -Combined with other wound No -Current Size (cm) - Length 4.0 -Current Size (cm) - Width 2.7 -Current Size (cm) - Depth 0.1 -Total Square Cm 10.80 -Photo Taken No -Epithelialization None Present -Tunneling No -Undermining/Tunneling No -Circular Undermining No -Exudate Amt Medium -Exudate Type Sanguineous -Wound Margin Flat & Intact -Granulation Amt Large (67-100%) -Granulation Quality N/A,Red -Necrosis Amt Small (1-33%) -Necrotic Tissue Type Adherent Slough -Structure Exposed N/A -Texture (Kelsea-wound Skin Appearance) Assessed, Excoriation, Localized Edema -Moisture ([place]else[place]-wound Skin Appearance Assessed,Dry/ ) Scaly -Color (Kelsea-wound Skin Appearance) Assessed, Hemosiderin Staining -Temperature ([place]elsea-wound Skin No Abnormality Appearance) (Pt Warm) -Tenderness on Palpation (Kelsea-wound Yes Skin Appearance) -Ulcer Cleansing SOAP AND WATER -Foul Odor after Cleansing No -Anesthetic Used 4% Lidocaine Solution #3 R lateral -Combined with other wound No -Current Size (cm) - Length 4.7 -Current Size (cm) - Width 3.3 -Current Size (cm) - Depth 0.1 -Total Square Cm 15.51 -Photo Taken No -Epithelialization None Present -Tunneling No -Undermining/Tunneling No -Circular Undermining No -Exudate Amt Large -Exudate Type Sanguineous -Wound Margin Flat & Intact -Granulation Amt Large (67-100%) -Granulation Quality Red -Slough/Fibrin Yes -Necrosis Amt Small (1-33%) -Necrotic Tissue Type Adherent Slough -Structure Exposed N/A -Texture (Kelsea-wound Skin Appearance) Assessed, Excoriation, Localized Edema -Moisture ([place]elsea-wound Skin Appearance Assessed,Dry/ ) Scaly -Color (Kelsea-wound Skin Appearance) Assessed, Hemosiderin Staining -Temperature (Kelsea-wound Skin No Abnormality Appearance) (Pt Warm) -Tenderness on Palpation (Kelsea-wound No Skin Appearance) -Ulcer Cleansing SOAP AND WATER -Foul Odor after Cleansing No -Anesthetic Used 4% Lidocaine Solution [Edema Assessment] -Lower Limb Edema Present Yes -Right Calf (cm) 32.8 -Right Ankle (cm) 21.5 -Left Calf (cm) 32.5 -Left Ankle (cm) 22.3 Neurological: Cranial nerves II-XII grossly intact, Neuro grossly intact Psych/Mental Status: Normal Affect, Appropriate, Alert and oriented to time, place, person, mood and affect Debridement Note Post-Debridement Measurements/Treatment WC - Nurse 2 - General Ulcer CM Notes Start: 07/08/19 11:29 Freq: Status: Active Protocol: Activity Type Activity Date Activity User E-Sign Co-Sign Detail Recorded Client Recorded Date Recorded By Document 07/08/19 12:12 DV [id number] 07/08/19 12:15 DV 07/08/19 12:12 Wound Center Nurse 2 #4 R wilkins -Time 12:12 -Correct Patient Yes -Correct Side, Site, Position Yes -Correct Procedure Yes -Procedure Performed Yes -Type of Procedure Debridement -Clinical Debridement Subcutaneous -Post Debridement Size (cm) - Length 3.5 -Post Debridement Size (cm) - Width 4.1 -Post Debridement Size (cm) - Depth 0.1 -Total Square Cm 14.35 -Wound/Ulcer Outcome Not Healed -Ulcer Cleansing Rinsed/ Irrigated with Saline -Foul Odor after Cleansing No -Bioengineered Tissue No -Bleeding Controlled with Pressure -Offloading No -Treatment Response Procedure Tolerated Well #3 R lateral -Time 12:12 -Correct Patient Yes -Correct Side, Site, Position Yes -Correct Procedure Yes -Procedure Performed Yes -Type of Procedure Debridement -Clinical Debridement Subcutaneous -Post Debridement Size (cm) - Length 5.5 -Post Debridement Size (cm) - Width 4.2 -Post Debridement Size (cm) - Depth 0.1 -Total Square Cm 23.10 -Wound/Ulcer Outcome Not Healed -Ulcer Cleansing Rinsed/ Irrigated with Saline -Foul Odor after Cleansing Yes -Bioengineered Tissue No -Bleeding Controlled with Pressure -Offloading No -Treatment Response Procedure Tolerated Well Pain Scale: 0-10 Numeric Is Patient Pain Free? Yes Laterality: Right - Distal lower extremity Type of Debridement: Excisional debridement Anesthesia Used: 5% Lidocaine Gel Depth: Down to and including healthy tissue, in the subcutaneous layer Percentage of wound debrided: 100 Instrument Used: 7mm curette Tissue Removed: Bioburden and nonviable tissue Severity: Fat Layer Exposed Amount of bleeding with debridement: Mild Bleeding Controlled with: Compression and gauze Patient tolerated procedure well Assessment/Plan Active Problems (Last Reviewed 07/08/19 @ 13:31 by Apurva Mckinley) Renal failure (Acute) Assessment: This is a 69-year-old morbidly obese female with severe swelling and edema in her lower extremities, which has developed into multiple superficial open ulcerations and excoriations. It appears as though her symptoms are related to her lifestyle habits. She and her have been advised to elevate her lower extremities as much as possible. She is to sleep on a flat mattress at night. She is to elevate her lower extremities as much as possible. Elevation is to be to heart level, or higher. This is to be achieved even during daytime hours. The patient is to avoid idle standing and sitting. Activity has been encouraged. Weight loss has been strongly encouraged. We are to continue with compression to the lower extremities as well. 3M 2 layer compression wraps will be applied to each lower extremity. Jeannine will be applied topically to the ulcerations in the distal right lower extremity. Patient is to return in 1 week for reassessment. She indicates that she is scheduled for outpatient surgery tomorrow by Dr. Briseno. She is to undergo cholecystectomy. She has also recently been placed on an antibiotic, though she knows not the name of the antibiotic, nor the reason for which it was initiated. It was prescribed by her primary care physician, Dr. Smith. Compliance issues have been a factor in the past, given the patient's Alzheimer's dementia and her inability to cooperate with recommended treatment measures. Patient's is attempting to seek the resources necessary to manage his , and home health nursing is now involved. Patient has been advised to take a well- balanced diet, and to optimize her glycemic control. Plan: A lengthy discussion has been undertaken with the patient and her as to the appropriate conservative treatment measures. The patient is to elevate her lower extremities as much as possible. She has been encouraged to sleep on a flat mattress at night. She has been encouraged to elevate her lower extremities much as possible, even during daytime hours. Elevation is to be to heart level, or higher. She has been discouraged from prolonged idle sitting. Activity has been encouraged. Weight loss has been also encouraged. We are to use a 3M 2 layer compression wrap to each lower extremity, with Jeannine applied topically to the ulcerations on the right lower extremity. The patient will follow-up on an outpatient basis for reevaluation in 1 week. She has been encouraged to optimize her nutritional intake. She has also been advised to optimize her glycemic control. Influenza vaccine was not administered today. The patient is not a smoker. She weighs 200 pounds. She stands 5 feet 6 inches tall. Her BMI is 32.3. This places her in a class I obesity category. Weight loss has been recommended, and collaboration with her primary care physician in this regard has been advised.
== END 2019-07-26 23:59 ==
LOC: WC 11:45
PROVIDERS: Family Provider Family Medicine Geriatric Medicine; PCP Family Medicine Geriatric Medicine; Visit Provider Surgery
DX: I83.012 Varicose veins of right lower extremity with ulcer of calf (principal); L97.212 Non-pressure chronic ulcer of right calf with fat layer exposed; E66.01 Morbid (severe) obesity due to excess calories; E11.621 Type 2 diabetes mellitus with foot ulcer; E11.22 Type 2 diabetes mellitus with diabetic chronic kidney disease; E11.40 Type 2 diabetes mellitus with diabetic neuropathy, unspecified; R60.0 Localized edema; F02.80 Dementia in other diseases classified elsewhere, unspecified severity, without behavioral disturbance, psychotic disturbance, mood disturbance, and anxiety; G30.9 Alzheimer's disease, unspecified; N18.9 Chronic kidney disease, unspecified; K58.9 Irritable bowel syndrome, unspecified; I13.0 Hypertensive heart and chronic kidney disease with heart failure and stage 1 through stage 4 chronic kidney disease, or unspecified chronic kidney disease; I50.9 Heart failure, unspecified; J45.909 Unspecified asthma, uncomplicated; G47.33 Obstructive sleep apnea (adult) (pediatric); E03.9 Hypothyroidism, unspecified; E78.00 Pure hypercholesterolemia, unspecified; Z68.32 Body mass index [BMI] 32.0-32.9, adult; Z86.718 Personal history of other venous thrombosis and embolism; Z86.711 Personal history of pulmonary embolism; Z79.899 Other long term (current) drug therapy
CPT/HCPCS: 11042; 11045; 29580; 29581

== ENCOUNTER 2019-07-16 09:16 | Emergency (ER) | payer MEDICARE, OTHER, SELFPAY ==
[2019-07-16 09:16] VITALS: BMI 30.4
[2019-07-16 09:17] VITALS: BP 95/82; PULSE 89; RESP 18; TEMP 37.2; O2SAT 98; BMI 30.2
--- NOTE | 2019-07-16 09:28 | EKG12_ITS ---
Test Reason : WEAKNESS Blood Pressure : / mmHG Vent. Rate : 082 BPM Atrial Rate : 085 BPM P-R Int : 000 ms QRS Dur : 086 ms QT Int : 400 ms P-R-T Axes : 000 002 223 degrees QTc Int : 467 ms Normal sinus rhythm with PAC's ST & T wave abnormality, consider inferior ischemia ST & T wave abnormality, consider anterolateral ischemia Abnormal ECG Confirmed by FILIPE HARRIS ([id number]), electronic news gathering editor BUCK NAVARRETE ([id number]) on 07/21/2019 2:05:22 PM Referred By: Earle Briseno Confirmed By:FILIPE HARRIS
--- NOTE | 2019-07-16 09:28 | CT_ITS ---
STUDY: CT BRAIN WITHOUT CONTRAST REASON FOR EXAM: Female, 69 years old. Confusion RADIATION DOSAGE (If Supplied By Facility): CTDIvol = ( 44.99 ) mGy, DLP = ( 745.49 ) mGycm TECHNIQUE: Transaxial CT imaging of the brain was performed without administration of intravenous contrast material. Individualized dose optimization techniques were used for this CT. COMPARISON: 07/09/2019 FINDINGS: Normal soft tissue structures. Normal calvarium. There is mild cerebral atrophy with widening of the extra-axial spaces and ventricular dilatation. There are areas of decreased attenuation within the white matter tracts of the supratentorial brain, consistent with microvascular disease changes. Normal basal ganglia and thalami. Normal brainstem. There is mild cerebellar atrophy. There is no intracranial hemorrhage. There are no findings of an acute ischemic infarction. Normal visualized paranasal sinuses. CT/Brain/Head without Contrast IMPRESSION: Chronic involutional changes of the brain. No acute intracranial process. Electronically Signed: Ray Aponte MD at 10:57 EDT Tel [phone], Service support ,
--- NOTE | 2019-07-16 09:28 | RAD_ITS ---
STUDY: X-RAY CHEST REASON FOR EXAM: Female, 69 years old. Cough with chest pain TECHNIQUE: Single AP portable view of the chest. COMPARISON: 06/03/2019. FINDINGS: Stable right dialysis catheter. Heart size is mildly prominent. Stable likely chronic blunting of the left lateral costophrenic angle. The right lateral costophrenic angle is sharp. Unremarkable pulmonary vascularity. No mediastinal shift or pneumothorax. There are diffuse degenerative changes of the visualized thoracic spine. Normal visualized ribs, clavicles, and shoulders. There is no demonstrated abnormality of the visualized soft tissue structures of the upper abdomen. RAD/Chest 1 View (Portable) IMPRESSION: Stable likely chronic blunting of the left lateral costophrenic angle. Otherwise no evidence of pneumonia or CHF. Electronically Signed: Ray Aponte MD at 10:49 EDT Tel [phone], Service support ,
--- NOTE | 2019-07-16 09:29 | CT_ITS ---
We are attempting to reach an attending provider to discuss findings. An addendum with communication details will be sent when the communication is complete. STUDY: CT ABDOMEN AND PELVIS WITHOUT CONTRAST REASON FOR EXAM: Female, 69 years old. Pain and weakness RADIATION DOSAGE (If Supplied By Facility): CTDIvol = ( 20.29 ) mGy, DLP = ( 1059.43 ) mGycm TECHNIQUE: Transaxial images were obtained from the dome of the diaphragm to the symphysis pubis without oral contrast, and without intravenous contrast. Sagittal and coronal images were reconstructed. Individualized dose optimization techniques were used for this CT. COMPARISON: CT abdomen and pelvis 07/02/2019. FINDINGS: Lack of intravenous contrast limits evaluation of abdominal and pelvic organs. There is a small right pleural effusion. There is bibasilar atelectasis. There is mild to moderate cardiomegaly. There are coronary artery calcifications. Normal liver. Normal gallbladder and extrahepatic biliary system. Normal spleen. Normal pancreas. There is an indeterminate 3.6 x 3.3 cm left adrenal gland mass. Normal right adrenal gland. There are bilateral renal hypodense lesions too small to characterize. There is left renal nonobstructing lower pole stones. No hydronephrosis. There is mild bilateral renal parenchymal thinning and atrophy. There is suggestion of discontinuity of the second segment of the duodenal wall where there is ill-defined hypodensity and inflammation, increased since prior exam. Phlegmon or early abscess cannot be excluded in the region of ill-defined hypodensity of the second segment of the duodenum on series 2 image 64 measuring 4.5 x 5.1 x 4.1 cm. There is new, moderate free fluid in the right anterior pararenal space and along the right paracolic gutter and small amount of pneumoperitoneum. Normal visualized stomach. There are multiple colonic diverticula consistent with diverticulosis. There is aortobiiliac and branch vessel atherosclerotic disease. Normal inferior vena cava. Normal retroperitoneum. Normal urinary bladder. Normal abdominal wall. There is grade 1 anterolisthesis of L4 on L5. CT/Abdomen/Pelvis without Cont IMPRESSION: Findings are suggestive of a perforated duodenal diverticulum at the second segment where there is ill-defined hypodensity, inflammation and discontinuity of the duodenal wall. Phlegmon or early abscess cannot be excluded in the region of ill-defined hypodensity of the second segment of the duodenum on series 2 image 64 measuring 4.5 x 5.1 x 4.1 cm. There is new, moderate free fluid and pneumoperitoneum in the right pararenal space and right paracolic gutter. Electronically Signed: Mello Claros, at 11:29 EDT Tel , Service support ,
[2019-07-16 09:55] LABS: Blood Gas Specimen Type VEN; O2 Delivery Device Room Air; SITE OTHER; Time Given 950; VBG BASE EXCESS 7 mmol/L (-1.0-3.5); VBG Bicarbonate 31 mmol/L (22-26); VBG Oxygen Content 32 mmol/L (23-33); VBG PO2 25 mmHg (25-40); VBG SO2 51 % (50-70); VBG pCO2 38.6 mmHg (41-51); VBG pH 7.51 (7.32-7.42)
[2019-07-16 09:59] LABS: Absolute Lymphocyte Count 0.61 X10^3/uL (0.83-4.51); Absolute Neutrophil Count 10.7 X10^3/uL (2.0-7.7); Basophil# 0.01 X10^3/uL; Basophil% 0.1 % (0-1); Eosinophil# 0.17 X10^3/uL; Eosinophils% 1.4 % (0-5); Hematocrit 25.4 % (37-47); Hemoglobin 8.2 g/dL (12.0-15.0); Lymphocyte # 0.61 X10^3/ul (4.0); Lymphocyte % 5.1 % (19-41); Mean Corp Hgb Conc 32.3 g/dL (32-36); Mean Corpuscular Hgb 30.1 pg (27.0-32.0); Mean Corpuscular Volume 93.4 fL (81-99); Mean Platelet Vol. 9.4 fl (6.2-12.0); Monocyte# 0.39 X10^3/uL; Monocyte% 3.3 % (0-10); NRBC Flagged by Analyzer 0 % (0-5); Neutrophil # 10.67 X10^3/uL (2.7-7.7); Neutrophil % 89.9 % (47-70); POSITIVE MORPHOLOGY YES; Platelet Count 184 K/mm3 (150-450); RBC Distribution Width CV 16.3 % (11.6-14.6); RBC Distribution Width SD 53.1 fl (35.1-43.9); Red Blood Count 2.72 M/mm3 (4.2-5.4); White Blood Count 11.9 K/mm3 (4.4-11.0)
[2019-07-16 10:02] LABS: Differential Indicated SCAN CRITERIA MET
[2019-07-16 10:09] LABS: International Normalized Ratio 1.1
[2019-07-16 10:10] LABS: Partial Thromboplast Time 29.3 Seconds (24.1-36.2)
[2019-07-16 10:18] LABS: Anisocytosis RARE; Hypochromasia 1+; Platelet Estimate ADEQUATE (ADEQ); Polychromasia RARE
[2019-07-16 10:27] LABS: ALB/GLOB Ratio 0.6 RATIO (0.9-2.4); AST(SGOT) 23 U/L (15-37); Alanine Aminotransfer ALT/SGPT 17 U/L (13-56); Albumin, Serum 1.9 g/dL (3.2-5.0); Alkaline Phosphatase 121 U/L (45-117); Anion Gap 8 (5-15); BUN 22 mg/dL (7-18); BUN/Creat Ratio 9.5 RATIO (10-20); Calcium,Total 8.4 mg/dL (8.5-10.1); Chloride 100 mmol/L (98-107); Creatinine, Serum 2.32 mg/dL (0.55-1.02); EST Glomerular Filtration Rate 22 mL/min (>60); Est Glom Filt Rate - Afr Amer 27 mL/min (>60); Estimated Creatinine Clearance 21.12 ml/min; Globulin 3.4 g/dL (2.2-4.2); Glucose 176 mg/dL (74-106); Potassium 3.3 mmol/L (3.5-5.1); Protein, Total 5.3 g/dL (6.4-8.2); Sodium Level 141 mmol/L (136-145)
--- NOTE | 2019-07-16 10:35 | ED.VIS.GEN ---
History of Present Illness Chief Complaint: Weakness Narrative: Patient presenting secondary to altered mental status. Patient's reports that she actually has a gallbladder surgery scheduled for today. Patient had dialysis yesterday which actually went quite well. He reports that the patient easily ambulated into the dialysis appointment got a full course of dialysis and then left. He reports however that since the afternoon after that when she had a wound care appointment she is started to have confusion and decreased level of consciousness. Over the course of the last week or so the patient has been dealing with nausea vomiting and diarrhea. Patient's states that this has not necessarily been increased recently, no fevers. When questioned the patient does state that she has some abdominal pain which she also has been dealing with over the course of the last couple of weeks and has had multiple emergency department visits and work-ups for and ultimately had thoughts that this is coming from her gallbladder disease. denies that she has had any sort of falls or head injury. Patient is not able to provide significant review of systems but other review of systems through the it is otherwise negative. Past Medical History - Allergies and Home Meds Allergies/Adverse Reactions: Allergies exenatide [From Byetta] Allergy (Intermediate, Verified 07/16/19 09:23) Unknown Sulfa (Sulfonamide Antibiotics) Allergy (Intermediate, Verified 07/16/19 09:23) Unknown Tetracyclines Allergy (Intermediate, Verified 07/16/19 09:23) Unknown Primary Care Physician: Bartolo Smith Chi, MD [Primary Care Provider] - Past Medical History: - - End-stage renal disease Surgical History: - - The patient underwent open reduction and internal fixation of a right elbow fracture on March 24, 2019. She has also undergone a vein stripping procedure in the past, though the specific nature of the procedure is not known. She is a G2, P2 Ab0 Smoking Status: Never smoker - Family History Maternal Family History: Family History (Last Reviewed 07/08/19 @ 13:31 by Apurva Mckinley) Father Heart disease Mother Hypertension Family History: Reports: - - The patient's father at age of 74 with a history of myocardial infarction. Patient's mother at age of 82 with a history of heart disease. Review of Systems ROS: Unable to Obtain - Decreased LOC General: Reports: - - Confusion Gastrointestinal: Reports: Abdominal pain, Nausea, Vomiting, Diarrhea Physical Exam Vital Signs/Narrative: Vital Signs Temp Pulse Resp BP Pulse Ox 07/16/19 09:17 99 F 89 18 95/82 H 98 General: Well nourished, Well developed, - - Lethargic Head: Normocephalic, Atraumatic Eyes: Perrl, EOMI ENT: Dry mucous membranes Neck: Supple, Nontender Cardiovascular: - - Regular rate with a somewhat irregular rhythm, 2 out of 6 systolic murmur Respiratory: - - Mildly tachypneic with shallow respirations, normal breath sounds Abdomen: - - Diffuse nonlocalizing tenderness to palpation with some guarding but no evidence of rigidity Rectal: Guaiac positive Extremities: - - Chronic wounds in the legs with +1 pitting edema of the lower extremities bilaterally Skin: Pallor Neurological: - - Patient moves her upper and lower extremities equally, she arouses to voice and will answer questions but is somewhat lethargic Diagnostic/Tx/Re-eval - EKG Initial EKG Interpretation: - - Sinus rhythm with PACs and PVCs noted. New onset T wave flattening and inversions laterally and inferiorly - Medical Decision Making Patient presented secondary to undifferentiated altered mental status. On physical exam the patient did not seem to have lateralizing deficits, and her lethargy seems to be more encephalopathy rather than stroke, so stroke team was not activated. She was found to have some abdominal tenderness, so abdominal imaging was obtained as were laboratory studies. Patient's laboratory work-up was indicative of her chronic renal disease with mild elevation of her lactic acid. CT head was negative. Chest x-ray showed some chronic changes. CT abdomen and pelvis however per radiology potentially shows evidence of perforated viscus, potentially a perforated duodenal diverticulum with free air and lots of free fluid within the abdomen. Blood cultures were obtained upon the patient's arrival in the emergency department, and she was started on empiric Zosyn. Patient was scheduled to receive gallbladder surgery today by Dr. Briseno who I attempted to contact. He was not engineering inspection assistant, so Dr. Stanford was contacted who evaluated the patient at the bedside. His determination is that the patient's surgical case is extremely complicated with high morbidity and would be best served at a larger facility. Family requested transfer to [facility]. Patient was accepted there. Second IV line was started, patient was started on fluids, and the patient will be transferred emergently for emergency surgery. - Critical Care Time Critical care time (excluding procedures): 30-74 minutes, Discussing w/Patient &/or Family/Quality Improvement Coordinator (Rn), Discussing w/Consultants, Arranging Admission or Transfer, Performing Direct Patient Care at Bedside ED Disposition - Plan for ED Patient: Disposition: [facility] Diagnosis: Perforated diverticulum of duodenum
--- NOTE | 2019-07-16 10:38 | ED.RN ---
LACTIC 2.1. AWARE
[2019-07-16 10:39] LABS: Lactic Acid 2.1 mmol/L (0.4-2.0)
[2019-07-16 10:40] VITALS: BP 104/68; PULSE 83; PULSE 86; RESP 18; TEMP 37.2; O2SAT 96
[2019-07-16 10:48] LABS: Lipase 93 U/L (73-393)
[2019-07-16 11:31] VITALS: BP 103/43; PULSE 82; RESP 20; TEMP 37.6; O2SAT 98
--- NOTE | 2019-07-16 11:53 | NURSING ---
DR CARLITOS POSADA
--- NOTE | 2019-07-16 12:02 | NURSING ---
CALLED [facility] FOR TRANSPORT TO [facility]. ETA IS HERE IN [place]
[2019-07-16] MEDS: 0.9% Normal Saline 1,000 ML 150 ML IV (12:09)
[2019-07-16 12:34] VITALS: BP 99/53; PULSE 84; PULSE 87; RESP 16; RESP 18; TEMP 37.2; TEMP 37.6; O2SAT 99
[2019-07-16 13:54] LABS: Reflex Lactate? Y
== END 2019-07-16 12:35 | disposition short-term general hospital (02) ==
PROVIDERS: Emergency Provider Emergency Medicine; Family Provider Family Medicine Geriatric Medicine; PCP Family Medicine Geriatric Medicine
DX: K57.00 Diverticulitis of small intestine with perforation and abscess without bleeding (principal); N18.6 End stage renal disease; Z99.2 Dependence on renal dialysis
CPT/HCPCS: 70450; 71045; 74176; 80053; 82274; 82803; 83605; 83690; 84484; 85025; 85610; 85730; 86850; 86900; 86901; 87040; 93005; 96365; 99285; J7030; A4216